=== PATIENT | female | born 1960 | race Caucasian/White ===

== ENCOUNTER 2020-01-09 16:21 | Outpatient (CLI) | payer OTHER, SELFPAY ==
--- NOTE | ~2020-01-09 | MM_ITS ---
EXAMINATION: MM screening tori BI w ellen HISTORY: Screening mammogram TECHNIQUE: Craniocaudal and mediolateral oblique 3-D tomosynthesis images were obtained and synthetic 2-D images were generated. CAD analysis was submitted and interpreted. COMPARISON: 11/13/2018, 04/21/2017 bilateral digital screening mammogram examinations BREAST PARENCHYMAL COMPOSITION: The breasts are almost entirely fatty. FINDINGS: There is no evidence of suspicious mass, calcification, or architectural distortion to sugg est malignancy in either breast. There has been no suspicious interval change. IMPRESSION: 1. No mammographic evidence of malignancy. 2. Recommend routine screening mammography in one year. BI-RADS Category 1: Negative Reviewed, dictated and finalized at location A.
== END 2020-01-09 16:22 | disposition home or self-care (01) ==
LOC: ANHIMG 16:24
PROVIDERS: PCP Otolaryngology; Visit Provider Obstetrics & Gynecology
DX: Z12.31 Encounter for screening mammogram for malignant neoplasm of breast (principal)
CPT/HCPCS: 77063; 77067

== ENCOUNTER 2022-04-22 14:24 | Outpatient (CLI) | payer OTHER, SELFPAY ==
--- NOTE | ~2022-04-22 | MM_ITS ---
EXAMINATION: MM screening tori BI w ellen HISTORY: Screening mammogram TECHNIQUE: Craniocaudal and mediolateral oblique 3-D tomosynthesis images were obtained and synthetic 2-D images were generated. CAD analysis was submitted and interpreted. COMPARISON: 01/09/2020, 11/13/2018, 04/21/2017 bilateral screening mammogram examinations BREAST PARENCHYMAL COMPOSITION: The breasts are almost entirely fatty. FINDINGS: There is no evidence of suspicious mass, calcification, or architectural distortion to sugg est malignancy in either breast. There has been no suspicious interval change. IMPRESSION: 1. No mammographic evidence of malignancy. 2. Recommend routine screening mammography in one year. BI-RADS Category 1: Negative Reviewed, dictated and finalized at location A. FACULTY
== END 2022-04-22 14:25 | disposition home or self-care (01) ==
LOC: ANHIMG 14:27
PROVIDERS: PCP Physician Assistant; Visit Provider Physician Assistant
DX: Z12.31 Encounter for screening mammogram for malignant neoplasm of breast (principal)
CPT/HCPCS: 77063; 77067

== ENCOUNTER 2022-07-06 16:33 | Outpatient (CLI) | payer OTHER, SELFPAY ==
--- NOTE | ~2022-07-06 | CT_ITS ---
EXAMINATION: CTA chest PE protocol DATE: 07/06/2022 17:34 INDICATION: ABNORMAL COAGULATION PROFILE TECHNIQUE: Computed tomography angiography (CTA) of the chest was performed with 100 mL Omnipaque-350 intravenous contrast timed to evaluate the pulmonary arteries. Coronal maximum intensity projection 3D-reconstructions were created by the technologist. The dose-length product (DLP) was 526.48 mGy-cm. Automated exposure control and iterative reconstruction technique were employed. COMPARISON: None. FINDINGS: Lung parenchyma and airways: Clear. Pleura: Unremarkable. Thoracic inlet, axillae and chest wall: Unremarkable. Thoracic aorta: Mild arch calcification. Mediastinum: Calcified right hilar and mediastinal lymph nodes. Heart and pericardium: Normal. Coronary artery calcifications: Mild. Upper abdomen: No significant finding. Bones: No acute osseous finding. Pulmonary arteries: Study quality: Adequate. No pulmonary emboli detected. IMPRESSION: No CT evidence of acute pulmonary embolus. Reviewed, dictated and finalized at location K.
--- NOTE | ~2022-07-06 | US_ITS ---
EXAMINATION: US venous doppler [facility] DATE: 07/06/2022 18:52 INDICATION: ABNORMAL COAGULATION PROFILE . TECHNIQUE: Grayscale images without and with compression and Doppler images of the bilateral lower ex tremity veins were obtained. COMPARISON: None FINDINGS: The right common femoral vein, profunda (deep) femoral vein, femoral vein, popliteal vein, peroneal v ein, posterior tibial veins, gastrocnemius vein, and greater saphenous vein are patent. The left common femoral vein, profunda femoral vein, femoral vein, popliteal vein, peroneal vein, pos terior tibial veins, gastrocnemius vein, and greater saphenous vein are patent. IMPRESSION: 1. Patent bilateral lower extremity veins. No evidence of deep venous thrombosis. Reviewed, dictated and finalized at location K. IMPRESSION: 1. Patent bilateral lower extremity veins. No evidence of deep venous thrombos is.
[2022-07-06 17:26] LABS: Estimated Glomerular Filt Rate > 60
== END 2022-07-06 16:34 | disposition home or self-care (01) ==
PROVIDERS: PCP Internal Medicine Gastroenterology; Visit Provider Emergency Medicine
DX: R79.1 Abnormal coagulation profile (principal)
CPT/HCPCS: 71275; 93970; Q9967

== ENCOUNTER 2022-08-24 09:55 | Outpatient (CLI) | payer OTHER, SELFPAY ==
--- NOTE | 2022-08-24 11:00 | NEURO_ITS ---
Impression: # Complains of numbness of hands. # Bilateral Carpal Tunnel Syndrome, right more than left. # No ulnar neuropathy. # Normal needle/EMG exam. Nerve Conduction Studies Anti Sensory Summary Table Stim Site NR Peak (ms) P-T Amp (?V) Site1 Site2 Delta-P (ms) Dist (cm) Siva (m/s) Left Median Anti Sensory (2-3nd Digit) Wrist 3.4 44.1 Wrist 2-3nd Digit 3.4 14.0 41 Wrist 3.5 53.1 Wrist 2-3nd Digit 3.4 14.0 41 Right Median Anti Sensory (2-3nd Digit) Wrist 4.8 20.1 Wrist 2-3nd Digit 4.8 14.0 29 Wrist 4.1 39.2 Wrist 2-3nd Digit 4.8 14.0 29 Left Radial Anti Sensory (Base 1st Digit) Wrist 1.6 22.7 Wrist Base 1st Digit 1.6 0.0 Right Radial Anti Sensory (Base 1st Digit) Wrist 2.1 15.8 Wrist Base 1st Digit 2.1 0.0 Left Ulnar Anti Sensory (5th Digit) Wrist 2.3 26.6 Wrist 5th Digit 2.3 14.0 61 Right Ulnar Anti Sensory (5th Digit) Wrist 3.0 12.7 Wrist 5th Digit 3.0 14.0 47 Motor Summary Table Stim Site NR Onset (ms) O-P Amp (mV) Site1 Site2 Delta-0 (ms) Dist (cm) Siva (m/s) Left Median Motor (Abd Poll Brev) Wrist 3.5 4.3 Elbow Wrist 4.4 27.0 61 Elbow 7.9 3.9 Right Median Motor (Abd Poll Brev) Wrist 4.5 1.9 Elbow Wrist 4.3 25.0 58 Elbow 8.8 1.9 Left Ulnar Motor (Abd Dig Minimi) Wrist 2.4 4.9 A Elbow Wrist 4.5 27.0 60 A Elbow 6.9 4.3 Right Ulnar Motor (Abd Dig Minimi) Wrist 3.0 4.0 A Elbow Wrist 4.5 27.0 60 A Elbow 7.5 4.2 F Wave Studies NR F-Lat (ms) L-R F-Lat (ms) Left Median (Mrkrs) (Abd Poll Brev) 27.72 0.00 Right Median (Mrkrs) (Abd Poll Brev) 27.72 0.00 Left Ulnar (Mrkrs) (Abd Dig Min) 26.43 1.46 Right Ulnar (Mrkrs) (Abd Dig Min) 27.89 1.46 EMG Side Muscle Nerve Root Ins Act Fibs Amp Dur Recrt Comment Right 1stDorInt Ulnar C8-T1 Nml Nml Nml Nml Nml Right Ext Indicis Radial (Post Int) C7-8 Nml Nml Nml Nml Nml Right Ext Digitorum Radial (Post Int) C7-8 Nml Nml Nml Nml Nml Right BrachioRad Radial C5-6 Nml Nml Nml Nml Nml Right PronatorTeres Median C6-7 Nml Nml Nml Nml Nml Right Abd Poll Brev Median C8-T1 Nml Nml Nml Nml Nml Left 1stDorInt Ulnar C8-T1 Nml Nml Nml Nml Nml Left Ext Indicis Radial (Post Int) C7-8 Nml Nml Nml Nml Nml Left Ext Digitorum Radial (Post Int) C7-8 Nml Nml Nml Nml Nml Left BrachioRad Radial C5-6 Nml Nml Nml Nml Nml Left PronatorTeres Median C6-7 Nml Nml Nml Nml Nml Left Abd Poll Brev Median C8-T1 Nml Nml Nml Nml Nml MTDD
== END 2022-08-24 09:56 | disposition home or self-care (01) ==
LOC: ANHNEURO 09:58
PROVIDERS: PCP Internal Medicine Gastroenterology; Visit Provider Orthopaedic Surgery Hand Surgery
DX: R20.2 Paresthesia of skin (principal); G56.03 Carpal tunnel syndrome, bilateral upper limbs
CPT/HCPCS: 95886; 95911

== ENCOUNTER 2024-10-09 14:42 | Outpatient (CLI) | payer MEDICARE, MEDICAID, SELFPAY ==
--- NOTE | ~2024-10-09 | MM_ITS ---
EXAMINATION: MM screening tori BI w ellen HISTORY: Screening TECHNIQUE: Craniocaudal and mediolateral oblique 3-D tomosynthesis images were obtained and synthetic 2-D images were generated. CAD analysis was submitted and interpreted. COMPARISON: Comparison to multiple prior studies sequentially, with oldest reviewed study dated 03/25. BREAST PARENCHYMAL COMPOSITION: Not dense: There are scattered areas of fibroglandular density. FINDINGS: There is no evidence of suspicious mass, calcification, or architectural distortion to sugg est malignancy in either breast. There has been no suspicious interval change. IMPRESSION: 1. No mammographic evidence of malignancy. 2. Recommend routine screening mammography in one year. BI-RADS Category 1: Negative Reviewed, dictated and finalized at location A.
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
--- OUTSIDE RECORDS SUMMARY | 2024-10-09 16:39 | XMS_ITS | Continuity of Care Document ---
Author Organization [facility] Address [address] [place] [address] Phone Care Team Providers Care Retirement Village Manager Name Role Phone Monsalve OD, Shady Unavailable Unavailable Advance Directives Directive Yes / No Effective Date File Name No Information Encounters Encounter Description Practice Location Reason(s) For Visit Diagnoses Date Provider Providers Copied on Encounter [facility], [address], [place], [place], [id number], [place] tel:[phone] [facility] [place] No Information 2-200 5 Monsalve OD Shady. [address] , [address], [place], [address], [place]. tel:[phone] Family History Family Member Type Diagnosis Age At Onset No Information Payers Payer name Insurance type Covered republican ID Authoriza tion(s) No Information Social History Type Description Quantity Date Captured Comments Sex Female Smoking Status No Information Chief Complaint And Reason For Visit No Information Reason For Referral Reason For Referral No Information History Of Present Illness Encounter Date Complaint History Of Prese nt Illness No Information Functional Status Date Functional Assessmen t No Information Instructions Date Instruction Additional Infor mation No Information Assessments Type Assessment Date No Information Patient Care Teams Name Effective Dates (start - stop) Status Members No Information
--- OUTSIDE RECORDS SUMMARY | 2024-10-09 16:39 | XMS_ITS | CONTINUITY OF CARE DOCUMENT ---
Author Name mariah lemus Address Unknown Organization [facility] Address [address] [place] [address] Phone [phone] Care Team Providers Care Chief Station Engineer Name Role Phone Marcos Noriega MD Unavailable KARYN RINALDI MD Unavailable [phone] INSURANCE PROVIDERS Payer name Policy type / Coverage type Keshawn red republican ID [id number] MEDICAID (2) Medicaid [id number]
--- OUTSIDE RECORDS SUMMARY | 2024-10-09 16:40 | XMS_ITS | Referral Summary ---
Author Organization [facility] Medical Office Building B Address [address] [place] [address] Care Team Providers Care Director E Learning Name Role Phone Nishant Wright MD Primary Care Provider Reginaldo Daley MD Unavailable [phone] Delio Freire OT Unavailable Unavailable Kathleen Olivarez Unavailable [phone] Encounters Date Type Department Care Team Description 09/23/2024 Telephone [facility] Medical [facility] Orthopedics and Sports Medicine [address] [place] [address] [address] [phone] Jose Juan Reynolds MD 09/17/2024 Telephone [facility] Orthopedics and Sports Medicine [address] [place] [address] [address] [phone] Kathleen Olivarez PA 09/17/2024 1:00 PM CDT Telemedicine [facility] Medical [facility] Orthopedics and Sports Medicine [address] [place] [address] [address] [place] [phone] Kathleen Olivarez PA S/P total knee arthroplasty, left (Primary Dx); Orthopedic aftercare 09/12/2024 [facility] Post Discharge Follow up phone call [facility] [address] [place] [address] Romelia Iniguez 09/12/2024 [facility] Post Discharge Follow up phone call [facility] [address] [place] [address] Romelia Iniguez Alicia 09/03/2024 3:52 PM CDT - 09/04/2024 12:48 PM CDT Hospital Encounter [facility] [address] [place] [address] Jose Juan Reynolds MD S/P TKR (total knee replacement), right (Primary Dx); Primary osteoarthritis of left knee Discharge Disposition: Discharge to home or self care 09/03/2024 2:05 PM CDT - 09/03/2024 11:59 PM CDT Hospital Encounter [facility] [address] [place] [address] Discharge Disposition: Discharge to home or self care 09/03/2024 11:25 AM CDT - 09/03/2024 1:55 PM CDT Surgery [facility] Operating Room [address] [place] [address] Jose Juan Reynolds MD Left total knee arthroplasty, robotic 09/03/2024 11:16 AM CDT Anesthesia Event [facility] Operating [facility] [address] [place] [address] Christel Lr MD Alexander, Jeffrey Michael, DO 08/16/2024 Orders Only [facility] Medical Group Orthopedics and Sports Medicine [address] [place] [address] [address] [place] [address] Jose Juan Reynolds MD Primary osteoarthritis of left knee (Primary Dx) 08/05/2024 10:10 AM CDT Lab [address] [address] Pre-op testing 08/05/2024 10:08 AM CDT - 08/05/2024 11:59 PM CDT Hospital Encounter [facility] [address] [place] [address] Pre-op testing Discharge Disposition: Discharge to home or self care 08/05/2024 10:07 AM CDT - 08/05/2024 11:59 PM CDT Hospital Encounter [facility] Cardiology [address] [place] [address] Pre-op testing Discharge Disposition: Discharge to home or self care 08/05/2024 Orders Only [facility] Medical Group Orthopedics and Sports Medicine [address] [place] [address] Jose Juan Reynolds MD Pre-op testing (Primary Dx) from Last 3 Months Allergies Active Allergy Reactions Criticality Noted Date Comments Sulfa (Sulfonamide Antibiotics) Rash Medium 03/24 Medications traZODone (DESYREL) 50 mg tablet Take 2 tablets (100 mg total) by mouth nightly Active pramipexole (MIRAPEX) 0.25 mg tablet Take 2 tablets (0.5 mg total) by mouth daily Active gabapentin (NEURONTIN) 600 mg tablet Take 1 tablet (600 mg total) by mouth 3 (three) times a day [address] (CYMBALTA) 60 mg capsule Take by mouth daily 3 Active baclofen (LIORESAL) 10 mg tablet TAKE 1 TABLET 3 TIMES A DAY BY ORAL ROUTE. Active lidocaine (LIDODERM) 5 % APPLY 1 PATCH BY TOPICAL ROUTE ONCE DAILY (MAY WEAR UP TO 12HOURS.) 4 Active ferrous sulfate 325 mg (65 mg of elemental iron) tabletIndicati ons:Iron Deficiency Anemia Take 1 tablet (325 mg total) by mouth 2 (two) times a day Active rosuvastatin (CRESTOR) 10 mg tablet Take 1 tablet (10 mg total) by mouth daily 4 Active senna-docusate (PERICOLACE) 8.6-50 mg 1-2 times daily as needed for constipation 60 tablet 1 5 Active ondansetron (ZOFRAN) 4 mg tablet Every 4-6 hours as needed 30 tablet 1 5 Active ascorbic acid (VITAMIN C) 500 mg tablet,chewabl e Take 1 tablet/chew tab (500 mg total) by mouth 2 (two) times a day 60 tablet/chew tab 5 Active cholecalcifero l (Vitamin D3) 2000 unit tablet Take 1 tablet (2,000 Units total) by mouth daily 30 tablet 5 Active aspirin 81 mg chewable tablet Take 1 tablet (81 mg total) by mouth 2 (two) times a day 60 tablet 5 Active celecoxib (CeleBREX) 200 mg capsule Take 1 capsule (200 mg total) by mouth 2 (two) times a day for 14 days 28 capsule 5 Active oxyCODONE-acet aminophen (PERCOCET) 5-325 mg per tabletIndicati ons:Pain Take 1-2 tablets by mouth every 4 (four) hours as needed for pain 63 tablet 5 Active oxyCODONE-acet aminophen (PERCOCET) 5-325 mg per tabletIndicati ons:Pain Take 1-2 tablets by mouth every 4 (four) hours as needed for pain 63 tablet 5 025 Discontin ued(Reord er) Active Problems Problem Noted Date Diagnosed Date Primary osteoarthritis of left knee 08/08/2024 S/P TKR (total knee replacement), right 12/26/19 24 Primary osteoarthritis of right knee 12/08/2023 Primary osteoarthritis of right hip 05/22/2023 Adhesive capsulitis of shoulder 01/25/2023 Obstructive sleep apnea syndrome 01/25/2023 Numbness and tingling sensation of skin 07/21/19 23 Pain of both shoulder joints 07/20/2022 Pain of cervical spine 07/20/2022 Congenital pes planus 07/29/2019 Fibromyalgia 07/29/2019 Foot callus 07/29/2019 Hypercholesterolemia 07/29/2019 Obesity 07/29/2019 Arthritis 07/29/2019 Osteoporosis 07/29/2019 Pain in right foot 07/29/2019 Verruca plantaris 07/29/2019 Cervical radiculopathy 04/06/2017 Social History Tobacco Use Types Packs/Day Years Used Date Smoking Tobacco: Former Cigarettes Q uit: 2012 Smokeless Tobacco: Never Tobacco Cessation:Counseling Given: Not Answered AUDIT-C Answer Date Recorded Q1: How often do you have a drink containing alc ohol? 2-4 times a month 09/03/2024 Q2: How many drinks containi ng alcohol do you have on a typical day when you are drinking? 1 or 2 09/03/2024 Q3: How often do you have si x or more drinks on one occasion? Never 09/03/2024 Personal Safety Answer Date Recorded Have you ever been in or are you currently in a harmful physical or emotional relationship or is someone making you feel afraid or unsafe? 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 Gender Identity Not on file Sexual Orientation Not on file Last Filed Vital Signs Vital Sign Reading Time Taken Comments Blood Pressure 119/70 09/04/2024 11:30 AM CDT Pulse 78 09/04/2024 11:30 AM CDT Temperature 36.1 C (97 F) 09/04/2024 11:30 AM CDT Respiratory Rate 18 09/04/2024 11:30 AM CDT Oxygen Saturation 100% 09/04/2024 11:30 AM CDT Inhaled Oxygen Concentration - - Weight 82.1 kg (181 lb) 09/04/2024 3:10 AM CDT Height 149.9 cm (4' 11.02) 09/04/2024 3:10 AM C DT Body Mass Index 36.54 09/04/2024 3:10 AM CDT Plan of Treatment Not on file Medical Devices Implanted Type Area Pit Recorder Device Identifier Shelf Expiration Date Model / Serial / Lot [employer] [place] 52mm 36mm Hip Neutral Liner Acetabular Altrx Sterile Latex Free [id number] - [id number] Implanted:Qty: 1 on 09/19/2023 by Reginaldo Daley MD at [facility] Right: Hip [employer] 06/21/2028 [id number] / / [id number] [employer] [place] 52mm Sector Hip Shell Acetabular Gription Sterile Latex Free [id number] - [id number] Implanted:Qty: 1 on 09/19/2023 by Reginaldo Daley MD at [facility] Right: Hip [employer] 06/21/2033 [id number] / / [id number] [employer] [place] 6.5mm 25mm Acetabular Cancellous Screw Bone Sterile 1217-25-500 - [id number] Implanted:Qty: 1 on 09/19/2023 by Reginaldo Daley MD at [facility] Right: Hip [employer] 03/23/2033 1217-25-500 / / [id number] [employer] Actis 105mm Collar Hip 5 Standard Offset Stem Femoral 1010-11-050 - [id number] Implanted:Qty: 1 on 09/19/2023 by Reginaldo Daley MD at [facility] Right: Hip [employer] 07/22/2032 1010-11-050 / / [id number] [employer] Articul/Nathan 36mm Cementless Hip +1.5mm 04/06 Taper Head Femoral Latex Free [id number] - [id number] Implanted:Qty: 1 on 09/19/2023 by Reginaldo Daley MD at [facility] Right: Hip [employer] 07/22/2028 [id number] / / [id number] [employer] Attune Cruciate Retain Cementless Knee Right 5 Component Femoral [id number] - [id number] Implanted:Qty: 1 on 12/26/2023 by Jose Juan Reynolds MD at [facility] Right: Knee [employer] [id number] 10/21/2033 [id number] / / [id number] [employer] Attune Fb Tib Base Sz 3 Por [id number] - [id number] Implanted:Qty: 1 on 12/26/2023 by Jose Juan Reynolds MD at [facility] Right: Knee [employer] [id number] 11/21/2033 [id number] / / [id number] [employer] Insert Tibial Knee Fixed Rm Posterior Stabilized Attune 5mm Size 5 Polyethylene [id number] - [id number] Implanted:Qty: 1 on 12/26/2023 by Jose Juan Reynolds MD at [facility] Right: Knee [employer] [id number] 12/22/2030 [id number] / / [id number] [employer] Attune Fb Tib Base Sz 4 Por [id number] - [id number] Implanted:Qty: 1 on 09/03/2024 by Jose Juan Reynolds MD at [facility] Left: Knee [employer] [id number] 07/22/2032 [id number] / / [id number] [employer] Insert Tibial Knee Fixed Lm Posterior Stabilized Attune 6mm Size 5 Polyethylene [id number] - [id number] Implanted:Qty: 1 on 09/03/2024 by Jose Juan Reynolds MD at [facility] Left: Knee [employer] [id number] 06/21/2032 [id number] / / [id number] [employer] Attune Cruciate Retain Cementless Knee Left 5 Narrow Component [id number] - [id number] Implanted:Qty: 1 on 09/03/2024 by Jose Juan Reynolds MD at [facility] Left: Knee [employer] 06/21/2034 [id number] / / Procedures Procedure Name Priority Date/Time Associated Diagnosis Comments XR KNEE LEFT 1 OR 2 VIEWS IP Routine 09/03/2024 2:16 PM CDT SURGICAL PATHOLOGY Routine 09/03/2024 2: 13 PM CDT Primary osteoarthritis of left knee ANESTHESIA SPINAL BLOCK Routine 09/03/2024 11:41 AM CDT ARTHROPLASTY TOTAL KNEE 09/03/2024 10:51 AM CDT Primary osteoarthritis of left knee Special Needs [Depuy Attune], Velys, NMES, CPM, cooling unit, 1 liter beta rinse and aquamantys (overnight)< PROTIME-INR STAT 09/03/2024 9:37 AM CDT APTT STAT 09/03/2024 9:37 AM CDT XR CHEST PA LATERAL 2 VIEWS Schedule Routine, Read Routine (OP Routine) 08/05/2024 10:44 AM CDT Pre-op testing ECG 12-LEAD Routine 08/05/2024 10:38 AM CDT Pre-op testing EGFR Routine 08/05/2024 10:23 AM CDT Pre-op testing DIFFERENTIAL AUTO Routine 08/05/2024 10:23 AM CDT Pre-op testing COMPREHENSIVE METABOLIC PANEL Routine 08/05/2024 10:23 AM CDT Pre-op testing CBC WITH AUTO DIFFERENTIAL Routine 08/05/2024 10:23 AM CDT Pre-op testing URINALYSIS AND REFLEX TO MICROSCOPIC AND CULTURE Routine 08/05/2024 10:23 AM CDT Pre-op testing from Last 3 Months Results * XR Knee Left 1 or 2 View (09/03/2024 2:16 PM CDT) Anatomical Region Laterality Modality Lower Extremities, Knee Left Computed Radiography 09/04/2024 2:50 PM CDT Narrative 09/04/2024 2:51 PM CDT EXAM DESCRIPTION: XR KNEE LEFT 1 OR 2 VIEWS REASON FOR STUDY: Left knee osteoarthritis. Post op Left knee FINDINGS: Two views submitted with comparison 05/13/2024. There has been interval 2 component left knee arthroplasty in near anatomic alignment. No acute fracture or evidence of loosening. Soft tissue swelling and foci of gas are present. IMPRESSION: Interval 2 component left knee arthroplasty in near anatomic alignment. THIS IS AN ELECTRONICALLY VERIFIED FINAL REPORT 09/04/2024 2:51 PM - Electronically signed by Jalil Lerner M.D. MF: SILVIA Report ID: [id number] Reading Location: [id number] Procedure Note Jalil Lerner MD - 09/04/2024 EXAM DESCRIPTION: XR KNEE LEFT 1 OR 2 VIEWS REASON FOR STUDY: Left knee osteoarthritis. Post op Left knee FINDINGS: Two views submitted with comparison 05/13/2024. There has been interval 2 component left knee arthroplasty in nearanatomic alignment. No acute fracture or evidence of loosening. Soft tissueswelling and foci of gas are present. IMPRESSION: Interval 2 component left knee arthroplasty in near anatomic alignment. THIS IS AN ELECTRONICALLY VERIFIED FINAL REPORT 09/04/2024 2:51 PM - Electronically signed by Jalil Lerner M.D. MF: SILVIA Report ID: [id number] Reading Location: [id number] Constantino Angelique TALAMANTES IMG XR PROCEDURES Final Res ult * Surgical pathology (09/03/2024 2:13 PM CDT) Tissue (Bone Fragment(s),) 09/03/2024 12:23 PM CDT Narrative [facility] - 09/05/2024 10:42 AM CDT EPIC results best viewed via link to PDF [facility] Department of Pathology [address] [place] [id number] Note to Patients: This report may contain a detailed description of human tissue sent by a health care provider to the laboratory for pathologic evaluation. The content of this report is essential for diagnosis and may provide important critical findings. This information may be unfamiliar to patients to review without a medical professional present. It is advised that the patient review this report in the presence of a health care provider who can answer questions and explain the details. Final Report Patient Name: VERENICE MONTGOMERY Address: [address] [place] [address] Gender: F : 1960 (Age: 64) Service: Surgery Location: [facility] Hospital #: [id number] Patient Type: [facility] OP in bed Taken: 09/03/2024 Received: 09/03/2024 Accessioned: 09/03/2024 Reported: 09/05/2024 Physician(s):Dr. Jose Juan Reynolds M.D. Diagnosis: Bone and soft tissue, robotic left total knee arthroplasty: - Histologic changes consistent with degenerative joint disease. Sae Armas MD Report Electronically Reviewed and Signed Out By Sae Armas MD 09/05/2024 10:42:47 Specimen(s) Received: A: Left knee bone and tissue Microscopic Description: A decalcified section shows erosion and destruction of the articular cartilage. The marrow space appears fatty without significant hematopoietic marrow elements. Also seen are benign-appearing fragments of soft tissue, focally lined by bland synovium. There is no evidence of malignancy. The histologic changes are consistent with the clinical impression of degenerative joint disease. Clinical History: Osteoarthritis of left knee. Left total knee arthroplasty, robotic. Gross Description: The container is labeled VERENICE MONTGOMERY and left knee. It is a 7 x 6 x 4 cm in aggregate of irregularly-shaped fragments of bone and an approximate 10 cc aggregate of soft tissue consisting of adipose tissue, portions of menisci and some synovium. Recognizable pieces of bone include the tibial plateau and portions of femoral condyles. Some of the bone fragments are covered by articular cartilage showing varying degrees of degenerative changes that include eburnation, pitting and roughened granularity. Decalcified and represented in two cassettes. Brien Fagan R.N., P.A./Libby Hall M.D. REPORT IMAGES AND SCANNED DOCUMENTS, IF INCLUDED, ONLY VIEWABLE IN PDF VERSION OF REPORT The performance characteristics of some immunohistochemical stains, fluorescence in-situ hybridization tests and immunophenotyping by flow cytometry cited in this report (if any) were determined by the Surgical Pathology Department at [facility] as part of an ongoing quality checker program and in compliance with federally mandated regulations drawn from the Clinical Laboratory Improvement Act of 1988 (CLIA '88). Some of these tests rely on the use of analyte specific reagents and are subject to specific labeling requirements by the US Food and Drug Administration. Such diagnostic tests may only be performed in a facility that is certified by the Department of Health and Human Services as a high complexity laboratory under CLIA '88. The FDA has determined that such clearance or approval is not necessary. This test is used for clinical purposes. It should not be regarded as investigational or for research. Nevertheless, federal rules concerning the medical use of analyte specific reagents require that the following disclaimer be attached to the report: This test was developed and its performance characteristics determined by the Surgical Pathology Department [facility]. It has not been cleared or approved by the U. S. Food and Drug Administration. Note for decalcified specimens: This assay has not been validated on decalcified tissues. Results should be interpreted with caution given the possibility of false negativity on decalcified specimens us Jose Juan Reynolds MD LAB PATHOLOGY ORDERABLES [facility] al Result [facility] [address] [place] [address] * Spinal Block (09/03/2024 11:41 AM CDT) Belinda Stewart, CARTON FILLING MACHINE OPERATOR - 09/03/2024 11:41 AM CDT Belinda Hunt CRNA 09/03/2024 11:42 AM Spinal Block Patient location: OR End time: 09/03/2024 11:22 AM Reason for block: primary anesthetic Staff: Placed by: JOSELITO:Belinda Hunt CRNA Procedure prep: Preprocedure checklist: patient identified, procedure contraindications assessed, site marked, procedure consent, surgical consent, IV checked, risks, benefits and alternatives discussed, monitors and equipment checked and timeout performed Patient position: sitting Procedure performed while patient: sedate with meaningful contact Monitoring: oximetry and blood pressure Prep solution: chlorhexadine/alcohol PPE: provider hat/mask, sterile gloves and sterile drape Skin infiltrated with lidocaine 1%: yes Spinal: Approach: midline Introducer used: yes Location: L4-5 Spinal injection: CSF demonstrated, no aspiration of heme and no paresthesias noted Number of attempts: 1 Spinal Needle: Needle type: Bryan Needle gauge: 25 G Needle length: 9 cm Assessment: Events: patient tolerated procedure well with no complications Christel Lr MD ANESTHESIA ORDERABLES Fi nal Result * aPTT (09/03/2024 9:37 AM CDT) aPTT 34 28 - 38 sec [facility] Comment: Interpretive Data Heparin therapeutic range: 66.0 - 100.0 seconds. Range based on correlation with therapeutic heparin activity range of 0.3 - 0.7 Units/mL. Current interpretive data was last revised on 2023. Blood 09/03/2024 9:37 AM CDT 09/03/2024 9:39 AM CDT Jose Juan Reynolds MD LAB BLOOD ORDERABLES Final R esult [facility] 1 [facility] Department of Laboratories [place], [place] [id number] * (ABNORMAL) Protime-INR (09/03/2024 9:37 AM CDT) PT 9.5(L) 9.7 - 13.0 sec [facility] INR 0.88(L) 0.90 - 1.20 [facility] Comment: Interpretive data Oral anticoagulant therapeutic ranges: Venous thromboembolism prophylaxis or treatment: 2.0-3.0 CARDIOLOGY Standard range: 2.0-3.0 High-intensity range: 2.5-3.5 Refer to indication-specific guidelines for appropriate target ranges for prosthetic heart valve replacement. Current interpretive data was last revised on 2019. Blood 09/03/2024 9:37 AM CDT 09/03/2024 9:39 AM CDT us Jose Juan Reynolds MD LAB BLOOD ORDERABLES Final R esult [facility] 1 [facility] Department [place] [address] * XR Chest Pa Lateral 2 Views (08/05/2024 10:44 AM CDT) Anatomical Region Laterality Modality Body, Chest N/A Computed Radiogr aphy 08/06/2024 1:25 PM CDT Narrative 08/06/2024 1:27 PM CDT EXAM DESCRIPTION: XR CHEST PA LATERAL 2 VIEWS REASON FOR STUDY: Pre op testing Pre-op for Left knee replacement on 09/03/24 No current chest complaints Former smoker TECHNIQUE: 2 radiographic view(s) of the chest. COMPARISON: 12/01/2023 FINDINGS: LUNGS: No focal opacity, pleural effusion, or pneumothorax. HEART/MEDIASTINUM: Cardiac silhouette normal in size. Mediastinal and hilar contours appear normal. LINES/TUBES: None. BONES: No acute osseous abnormality. Mild sclerosis of the left humeral head. These findings may be seen in the setting of avascular necrosis. IMPRESSION: Clear lungs. Mild sclerosis of the left humeral head. These findings may be seen in the setting of avascular necrosis. Consider follow-up dedicated left shoulder radiographs for further evaluation. THIS IS AN ELECTRONICALLY VERIFIED FINAL REPORT 08/06/2024 1:27 PM - Electronically signed by Jermain VillegasD. BB: LETICIA Report ID: [id number] Reading Location: [id number] Procedure Note Jermain Worthington MD PhD - 08/06/2024 EXAM DESCRIPTION: XR CHEST PA LATERAL 2 VIEWS REASON FOR STUDY: Pre op testing Pre-op for Left knee replacement on 09/03/24 No current chest complaints Former smoker TECHNIQUE: 2 radiographic view(s) of the chest. COMPARISON: 12/01/2023 FINDINGS: LUNGS: No focal opacity, pleural effusion, or pneumothorax. HEART/MEDIASTINUM: Cardiac silhouette normal in size. Mediastinal andhilar contours appear normal. LINES/TUBES: None. BONES: No acute osseous abnormality. Mild sclerosis of the lefthumeral head. These findings may be seen in the setting of avascular necrosis. IMPRESSION: Clear lungs. Mild sclerosis of the left humeral head. These findings may be seen in the setting of avascular necrosis. Consider follow-up dedicated left shoulder radiographs for further evaluation. THIS IS AN ELECTRONICALLY VERIFIED FINAL REPORT 08/06/2024 1:27 PM - Electronically signed by Jermain Worthington M.D. BB: LETICIA Report ID: [id number] Reading Location: [id number] us Jose Juan Reynolds MD IMG XR PROCEDURES Final Resu lt * ECG 12 lead (08/05/2024 10:38 AM CDT) 08/05/2024 10:4 2 AM CDT Narrative [facility] - 08/05/2024 12:18 PM CDT Vent Rate: 80 bpm RR Interval: 746 msec WV Interval: 169 msec QRS Duration: 94 msec QT Interval: 347 msec QTC Interval: 383 msec P-R-T [place]: 46 - -24 - 45 degrees IMPRESSION: SINUS RHYTHM POSSIBLE ANTERIOR MYOCARDIAL INFARCTION , PROBABLY OLD [30 ms Q WAVE IN V3/V4, OR R < 0.2 mV IN V4] BORDERLINE ECG NO CHANGE FROM PREVIOUS TRACING NOTED Electronically Signed By: Dony Brewer MD Jose Juan Reynolds MD ECG ORDERABLES Final Result [facility] * eGFR (08/05/2024 10:23 AM CDT) eGFR >90 >=60 mL/min/1. 73 m2 Comment: Interpretive Data Reference Interval Normal >/= 90 mL/min/1.73m2 Mildly decreased* 60 - 89 mL/min/1.73m2 Mildly to moderately decreased 45 - 59 mL/min/1.73m2 Moderately to severely decreased 30 - 44 mL/min/1.73m2 Severely decreased 15 - 29 mL/min/1.73m2 Kidney Failure < 15 mL/min/1.73m2 *Relative to young adult level Estimated glomerular filtration rate is determined by the 2020 CKD-EPI equation recommended by the National Kidney Foundation (A Unifying Approach to GFR Estimation: Recommendations of the NKF-ASK Task Force on Reassessing the Inclusion of Race in Diagnosing Kidney Disease, JASN 2020). The CKD-EPI equation should not be used for patients with unstable renal function and has not been validated in children and those over 70. Current interpretive data was last reviewed 2021. Blood 08/05/2024 10:2 3 AM CDT 08/05/2024 10:35 AM CDT Jose Juan Reynolds MD LAB BLOOD ORDERABLES Final R esult [facility] 1 [facility] Department [place] [address] * Differential, auto (08/05/2024 10:23 AM CDT) Neutrophil abs 4.32 1.50 - 6.50 K/cumm Imm gran abs 0.02 0.00 - 0.10 K/cumm [facility] Lymphocyte abs 2.34 0.80 - 3.30 K/cumm [facility] Monocyte abs 0.58 0.20 - 0.80 K/cumm [facility] Eosinophil abs 0.19 0.00 - 0.50 K/cumm [facility] Basophil abs 0.03 0.00 - 0.10 K/cumm [facility] Neutrophil pct 57.7 % [facility] Comment: Interpretive Data Percent cell count reference ranges are not reported, since discordance with absolute values may lead to misinterpretation of CBC data. Current Interpretive Data was last revised on 2017. Imm gran pct 0.3 % [facility] ([place]) Comment: Interpretive Data Percent cell count reference ranges are not reported, since discordance with absolute values may lead to misinterpretation of CBC data. Current Interpretive Data was last revised on 2017. Lymphocyte pct 31.3 % [facility] ([place] Comment: Interpretive Data Percent cell count reference ranges are not reported, since discordance with absolute values may lead to misinterpretation of CBC data. Current Interpretive Data was last revised on 2017. Monocyte pct 7.8 % [facility] ([place]) Comment: Interpretive Data Percent cell count reference ranges are not reported, since discordance with absolute values may lead to misinterpretation of CBC data. Current Interpretive Data was last revised on 2017. Eosinophil pct 2.5 % [facility] ([place] Comment: Interpretive Data Percent cell count reference ranges are not reported, since discordance with absolute values may lead to misinterpretation of CBC data. Current Interpretive Data was last revised on 2017. Basophil pct 0.4 % [facility] ([place]) Comment: Interpretive Data Percent cell count reference ranges are not reported, since discordance with absolute values may lead to misinterpretation of CBC data. Current Interpretive Data was last revised on 2017. Blood 08/05/2024 10:2 3 AM CDT 08/05/2024 10:35 AM CDT us Jose Juan Reynolds MD LAB BLOOD ORDERABLES Final R esult [facility] ([place]) 1 [facility] [place] [address] * Urinalysis reflex to microscopic and culture Urine, clean voided (08/05/2024 10:23 AM CDT) Color, ur Yellow Yellow Clarity, ur Clear Clear [facility]) Specific gravity, ur 1.024 1.003 - 1.030 [facility] pH, urine 6.5 [facility] ([place]) Comment: Interpretive Data U rine pH is affected by diet, medications, systemic acid-base disturbances, and renal tubular function. pH may affect urinary stone formation. For example, urine pH below 6.0 may help reduce the tendency for calcium phosphate stones and pH greater than 6.0 may reduce the tendency for uric acid stone formation. Source: [facility] [place] Current Interpretive Data was last revised on 2017 Protein, ur ql Negative Negative [facility] ([place]) Glucose, ur ql Negative Negative [facility]) Ketones, ur Negative Negative [facility] Bilirubin, ur Negative Negative [facility]) Blood, ur Negative Negative [facility]) Urobilinogen, ur <2.0 <2.0 mg/dL [facility] ([place]) Nitrite, ur Negative Negative [facility] Leukocyte esterase, ur Negative Negative [facility] ([place]) UA reflex comment Reflex conditions for microscopic UA and culture not met. [facility]) Urine, clean voided 08/05/2024 10:23 AM CDT 08/05/2024 10:33 AM CDT us Jose Juan Reynolds MD LAB MICROBIOLOGY - GENERAL O RDERABLES Final Result [facility] ([place] 1 [facility] Department [place] [address] * (ABNORMAL) CBC with auto differential (08/05/2024 10:23 AM CDT) WBC 7.48 3.80 - 9.90 K/cumm Hgb 13.6 11.9 - 15.5 g/dL [facility] Hct 41.3 35.6 - 45.5 % [facility] Plt 271 150 - 400 K/cumm [facility] MPV 10.1 9.1 - 12.3 fL [facility] RBC 4.33 3.90 - 5.20 M/cumm [facility] MCV 95.4 81.3 - 96.4 fL [facility] MCH 31.4 27.1 - 33.3 pg [facility] MCHC 32.9 32.3 - 35.7 g/dL [facility] RDW CV 14.2 11.1 - 14.9 % [facility] RDW SD 50.5(H) 35.7 - 48.1 fL [facility] NRBC abs 0.00 0.00 - 0.01 K/cumm [facility] Blood 08/05/2024 10:2 3 AM CDT 08/05/2024 10:35 AM CDT us Jose Juan Reynolds MD LAB BLOOD ORDERABLES Final R esult [facility] ([place]) 1 [facility] Department [place] [address] * Comprehensive metabolic panel (08/05/2024 10:23 AM CDT) Sodium 141 135 - 145 mmol/L Potassium, pl 4.6 3.3 - 4.9 mmol/L [facility] Chloride 103 97 - 110 mmol/L [facility] CO2 26 22 - 32 mmol/L [facility] Anion gap 12 2 - 15 mmol/L [facility] BUN 19 6 - 25 mg/dL [facility] Creatinine 0.72 0.60 - 1.10 mg/dL [facility] Glucose 103 70 - 199 mg/dL [facility] Comment: Interpretive Data Fasting glucose >/= 126 mg/dl is diagnostic for diabetes. Fasting is defined as no caloric intake for at least 8 hours. Fasting glucose between 100 mg/dl to 125 mg/dl is diagnostic of prediabetes. In a patient with classic symptoms of hyperglycemia or hyperglycemic crisis, a random glucose >/= 200 mg/dl is diagnostic for diabetes. In the absence of unequivocal hyperglycemia, results should be confirmed by repeat testing. The classification and Diagnosis of Diabetes Diabetes Care 2021; 46: S19-S40. Current interpretive data was last revised 2022. Calcium 9.6 8.5 - 10.3 mg/dL [facility] Bilirubin, total 0.3 0.1 - 1.2 mg/dL [facility] ([place]) Protein, pl 7.3 6.5 - 8.5 g/dL [facility]) Albumin 4.3 3.5 - 5.0 g/dL [facility] Alk phos 84 40 - 130 Units/L [facility] ALT 17 7 - 45 Units/L [facility] AST 21 10 - 45 Units/L [facility] Blood 08/05/2024 10:2 3 AM CDT 08/05/2024 10:35 AM CDT us Jose Juan Reynolds MD LAB BLOOD ORDERABLES Final R esult [facility] ([place]) 1 [facility] Department of Laboratories [place], [place] [id number] from Last 3 Months Insurance [employer] MEDICARE GOLD [facility] Advance Directives For more information, please contact: [phone] * Full Code (Latest Code Status on File) Date Activated Date Inactivated Comments 09/03/2024 3:53 PM 09/04/2024 4:48 PM * Full Code Date Activated Date Inactivated Comments 12/26/2023 3:20 PM 12/27/2023 6:09 PM * Full Code Date Activated Date Inactivated Comments 09/19/2023 12:21 PM 09/19/2023 8:24 PM Care Teams Director E Learning Relationship Specialty Start Date End Date Nishant Wright MD [address] [place] [id number] PCP - General Gastroenterology 10/05/22 Reginaldo Daley MD [address] [place] [address] [place] [address] Surgeon Orthopedic Surgery 09/19/23 Delio Freire OT Occupational Therapist Occupational Therapy 08/22/24 Kathleen Olivarez PA [address] [address] [place] [address] Orthopedic Surgery 09/04/24
--- OUTSIDE RECORDS SUMMARY | 2024-10-09 16:40 | XMS_ITS | Data Portability ---
Author Organization [facility] Address [address] [place] [address] Care Team Providers Care Tire Debeader Name Role Phone NISHANT GUARDADO Primary Care Provider SAW CAMP Grounds Caretaker Assessment Encounter Date Assessment Date Assessment LastModified by Organization Details LastModified Time 06/04/2024 06/04/2024 Labs completed 05/07/2024 CK 117, Glucose 91, BUN 17, Creatinine 0.58, eGFR 100, Sodium 143, Potassium 4.4, Chloride 102, Co2 31, Calcium 9.1, Protein 6.2, Albumin 4, Bilirubin 0.2, Alk phos 89, AST 22, ALT 15, Cholesterol 153, Triglycerides 80, LDL 76, HDL 62 LABS: 10/23/23. Glucose 90 BUN 14, creatinine 0.92, EGFR 99, sodium 140, potassium 4.7, chloride 104, carbon dioxide 25, calcium 9.3, protein 6.5, albumin 4.1, globulin 2.4, bilirubin < 0.2, alkaline phosphate 107, AST 18, ALT 11, cholesterol 157, triglycerides 97, HDL 63, LDL 76, CK 102. labs preformed on 09/12/2023, eGFR >90, sodium 139, potassium 3.9, chloride 100, CO2 28, anion gap 11, BUN 9, creatinine 0.72, glucose 86, calcium 9.2, bilirubin 0.3, protein 7.3, alk phos 89, ALT 22, AST 28, WBC 9.3, HGB 14.2, PLT 272, HGB A1C 5.7, Laboratories performed on 05/03/2023 white blood cell count 7800, hemoglobin 14.5, platelet count 325,000, sodium 138, potassium 3.7, chloride 101, bicarb 25, BUN 20, creatinine 0.58, glucose 103, calcium 9.8, bilirubin 0.4, protein 7.6, albumin 4.4, alkaline phosphatase 95, ALT 19, AST 23, GFR 101, ECG on 06/04/2024 shows normal sinus rhythm with a rate of 75 beats per minute, RSR prime pattern, left axis deviation poor R-wave progression, compared to the previous EKG which was last done on 05/31/2023, PVCs are no longer seen, otherwise the EKG is unchanged ASSESSMENT Preoperative cardiac evaluation prior to right knee arthroplasty with abnormal EKG with poor R wave progression left anterior fascicular block cannot rule out old anterior infarct and a Lexiscan Myoview stress test with anterior ischemia with just mild disease on a cardiac CTA done on 07/27/2023, she had a right hip arthroplasty done in August which was uneventful no cardiac contraindication right total knee arthroplasty. Coronary artery disease with mild disease less than 50% with in the LAD a calcium score of 37.3 and a cardiac CTA done on 07/26/2022 Abnormal ecg Myalgias, not improved with holding her statin so likely due to fibromyalgia Pure hypercholesterolemia on rosuvastatin 20 mg daily which he is tolerating but her LDL is not at ideal goal. She still has fibromyalgia pain but no significant change with the rosuvastatin History of fibromyalgia on gabapentin and Cymbalta Plan I recommend she follow a low fat low-cholesterol diet. She has no cardiac contraindication to getting a left total knee arthroplasty as she had a right total knee arthroplasty in December of 2023 which was without at complication. I did ask her to increase the rosuvastatin from 20 mg to 40 mg daily. to attain a goal LDL of under 70 mg/dL. I asked her to stop the rosuvastatin if she has significant muscle pains or any weakness other than her typical fibromyalgia pain. I asked her to continue her aspirin 81 mg daily I asked her to return in 2 months' time and we will obtain a fasting lipid profile, complete metabolic profile and a CPK prior to her follow-up visit. I asked her to return sooner if she has any cardiac issues or problems. CARDIAC TESTING ECHOCARDIOGRAM 12/20/2023, The study showed normal left ventricular size, wall thickness and systolic function. LV ejection fraction, visually 55-60%. Diastolic dysfunction grade 1. Resting segmental wall motion analysis: total wall motion score is 1.00. There are no regional wall motion abnormalities. Normal right ventricular size and systolic function. Agitated saline bubble study is negative for intracardiac shunt. The estimated pulmonary artery systolic pressure is 33 mmHg. Normal estimated pulmonary artery systolic pressure. Trace tricuspid regurgitation. The IVC (inferior vena cava) was <2.1 cm and collapsibility >50%. The RA pressure is estimated to be 3 mmHg. Normal 2D/Doppler-echocardiog raphic study with normal left ventricular function and no significant valvular abnormalities. Lexiscan Myoview stress test 06/16/2023 was moderate-sized area of anterior ischemia accounting for 7% of the myocardium, 3 times daily index increased to 1.37 and an LVEF of 66%. CARDIAC CTA: 07/27/2023 mild calcified atherosclerotic plaque which is most serve within the mild left anterior decending coronary artery and the bifurcation of the 1st diagonal branch above with mild stenosis (less than 50%) calcium score is 37.3 [email or web address] Not available 06/04/2024 13:45:09 08/13/2024 08/13/2024 Labs completed 08/05/2024 CK 87, Cholesterol 164, Triglycerides 161, HDL 69, LDL 68, Glucose 102, BUN 18, Creatinine 0.68, eGFR 97, Sodium 142, Potassium 4.5, Chloride 105, Co2 25, Calcium 9.8, Protein 7, Albumin 4.4, Bilirubin 0.3, Alk phos 89, AST 21, ALT 16 Labs completed 05/07/2024 CK 117, Glucose 91, BUN 17, Creatinine 0.58, eGFR 100, Sodium 143, Potassium 4.4, Chloride 102, Co2 31, Calcium 9.1, Protein 6.2, Albumin 4, Bilirubin 0.2, Alk phos 89, AST 22, ALT 15, Cholesterol 153, Triglycerides 80, LDL 76, HDL 62 LABS: 10/23/23. Glucose 90 BUN 14, creatinine 0.92, EGFR 99, sodium 140, potassium 4.7, chloride 104, carbon dioxide 25, calcium 9.3, protein 6.5, albumin 4.1, globulin 2.4, bilirubin < 0.2, alkaline phosphate 107, AST 18, ALT 11, cholesterol 157, triglycerides 97, HDL 63, LDL 76, CK 102. ECG on 06/04/2024 shows normal sinus rhythm with a rate of 75 beats per minute, RSR prime pattern, left axis deviation poor R-wave progression, compared to the previous EKG which was last done on 05/31/2023, PVCs are no longer seen, otherwise the EKG is unchanged ASSESSMENT Preoperative cardiac evaluation prior to right knee arthroplasty with abnormal EKG with poor R wave progression left anterior fascicular block cannot rule out old anterior infarct with a Lexiscan Myoview stress test with anterior ischemia with just mild disease prompting a cardiac CTA done on 07/27/2023 which showed mild nonobstructive coronary artery disease. She has no cardiac contraindication right total knee arthroplasty as scheduled on 09/03/2024. Coronary artery diseas with mild disease less than 50% in the LAD, less than 30% stenosis in the first diagonal branch, less than 25% stenosis in the left circumflex artery and less than 25% stenosis in the right coronary artery with a total calcium score of 37.3 stable, asymptomatic Abnormal ecg Myalgias, not improved with holding her statin so likely due to fibromyalgia Pure hypercholesterolemia on rosuvastatin 20 mg daily which he is tolerating but her LDL is not at ideal goal. She still has fibromyalgia pain but no significant change with the rosuvastatin History of fibromyalgia on gabapentin and Cymbalta Plan I recommend she follow a low fat low-cholesterol diet. She has no cardiac contraindication to a left total knee arthroplasty scheduled for July 04 at [facility]. I just asked her to hold her aspirin 1 week prior to surgery. Otherwise we will just continue her aspirin 81 mg daily and continue the rosuvastatin 40 mg daily. I asked her to return in 6 months and obtain a fasting lipid profile, CBC and a CMP prior to her follow up visit. I asked her to return sooner if she has any cardiac issues or problems. CARDIAC TESTING ECHOCARDIOGRAM 12/20/2023, The study showed normal left ventricular size, wall thickness and systolic function. LV ejection fraction, visually 55-60%. Diastolic dysfunction grade 1. Resting segmental wall motion analysis: total wall motion score is 1.00. There are no regional wall motion abnormalities. Normal right ventricular size and systolic function. Agitated saline bubble study is negative for intracardiac shunt. The estimated pulmonary artery systolic pressure is 33 mmHg. Normal estimated pulmonary artery systolic pressure. Trace tricuspid regurgitation. The IVC (inferior vena cava) was <2.1 cm and collapsibility >50%. The RA pressure is estimated to be 3 mmHg. Normal 2D/Doppler-echocardiog raphic study with normal left ventricular function and no significant valvular abnormalities. Lexiscan Myoview stress test 06/16/2023 was moderate-sized area of anterior ischemia accounting for 7% of the myocardium, TID index was increased to 1.37 and an LVEF of 66%. CARDIAC CTA: 07/27/2023 mild calcified atherosclerotic plaque which is most severe within the mild left anterior decending coronary artery and the bifurcation of the 1st diagonal branch above with mild stenosis (less than 50%) calcium score is 37.3 Not available 08/13/2024 12:28:04 Plan of Treatment Reminders Order Date Submit Date Provider Last Modified By Organization Details Last Modified Time Details Appointments ANY 15 2024 09:30A M Abby Bernardo MD Not available Not available Not available ANY 15 2024 10:30A Alexandrea Camp MD Not available Not available Not available Lab CMP, serum or plasma 2024 025 [email or web address] [facility], [address], [place], [address], 08/13/2024 12:27:15 lipid panel, serum 2024 025 [email or web address] [facility], [address], [place], [address], 08/13/2024 12:27:15 CBC w/ auto diff 2024 025 [email or web address] [facility], [address], [place], [address], 08/13/2024 12:27:15 CMP, serum or plasma 2024 025 RYAN [facility], [address], [place], [address], 08/06/2024 11:23:31 CK (creatine kinase), total, serum 2024 025 [place] [facility], [address], [place], [address], 08/06/2024 11:23:34 lipid panel, serum 2024 025 [place] [facility], [address], [place], [address], 08/06/2024 11:23:33 Referral None recorded. Procedures None recorded. Surgeries None recorded. Imaging electroca rdiogram 2024 025 [email or web address] In-Office Order, Internal Use Only DO Not Attach Compendium DO Not Attach Compendium, Do Not Delete/merge, [id number] 06/04/2024 13:46:21 Medication Orders baclofen 10 mg tablet 2024 025 [id number] [address], [place], [address], 09/24/2024 11:47:32 pramipexo le 0.25 mg tablet 2024 025 [id number], [address], [place], [address], 09/24/2024 11:47:32 gabapenti n 600 mg tablet 2024 025 [id number], [address], [place], [address], 09/24/2024 11:47:32 trazodone 50 mg tablet 2024 025 [facility] #[id number], [address], [place], [address], 09/24/2024 11:47:32 duloxetin e 60 mg capsule,d elayed release 2024 025 [facility] #[id number], [address], [place], [address], 07/03/2024 11:47:53 naproxen 500 mg tablet 2024 025 [id number], [address], [place], [address], 07/03/2024 11:47:52 acetamino phen 500 mg tablet 2024 025 [id number], [address], [place], [address], 07/03/2024 11:47:52 rosuvasta tin 40 mg tablet 2024 025 [id number], [address], [place], [address], 06/04/2024 13:46:28 hydrocodo ne 7.5 mg-acetam inophen 325 mg tablet 2023 [id number], [address], [place], [address], 08/13/2024 11:37:06 Patient TargetsNo targets recorded. Patient Instructions Encounter Date Encounter Id Patient Instructions Last Modified By Organization Details Last Modified Time 02/05/2024 [id number] restless legs syndrome: care instructions [email or web address] Not available 02/05/2024 17:27:32 high cholesterol : care instructions Not available 02/05/2024 17:27:32 06/04/2024 [id number] A healthy lifestyle: care instructions Not available 06/04/2024 13:46:21 07/03/2024 [id number] hypercalcemia: care instructions [email or web address] Not available 07/03/2024 11:47:33 When You Want to Lose Weight: Care Instructions [email or web address] Not available 07/03/2024 11:47:33 high cholesterol : care instructions [email or web address] Not available 07/03/2024 11:47:32 08/13/2024 [id number] A healthy lifestyle: care instructions Not available 08/13/2024 12:27:15 Reason for Referral None Reported. Results Created Date Observation Date Name Description Value Unit Range Abnormal Flag Note LastModifiedBy Organization Detail LastModifiedTime 05/07/19 25 05/08/2024 LIPID PROFI LE cholesterol, total 153 mg/dL 100-19 9 Not Available [facility] ([facility]) [address] [place], [address], 05/08/2024 08:24:15 05/07/19 25 05/08/2024 LIPID PROFI LE triglyceride s 80 mg/dL 0-149 Not Available [facility] ([facility]) [address] [place], [address], 05/08/2024 08:24:15 05/07/19 25 05/08/2024 LIPID PROFI LE HDL cholesterol 62 mg/dL >39 Not Available [facility] ([facility]) [address] [place], [address], 05/08/2024 08:24:15 05/07/19 25 05/08/2024 LIPID PROFI LE VLDL cholesterol brittney 15 mg/dL 5-40 Not Available [facility] ([facility]) [address] [place], [address], 05/08/2024 08:24:15 05/07/19 25 05/08/2024 LIPID PROFI LE LDL chol calc ([facility]) 76 mg/dL 0-99 Not Available [facility] ([facility]) [address] [place], [address], 05/08/2024 08:24:15 05/07/19 25 05/08/2024 CMP14 +EGFR glucose 91 mg/dL 70-99 Not Available [facility] ([facility]) [address] [place], [address], 05/08/2024 08:24:17 05/07/19 25 05/08/2024 CMP14 +EGFR BUN 17 mg/dL 8-27 Not Available [facility] ([facility]) [address] [place], [address], 05/08/2024 08:24:17 05/07/1905/08/2024 CMP14 +EGFR creatinine 0.58 mg/dL 0.57-1 .00 Not Available [facility] ([facility]) [address] [place], [address], 05/08/2024 08:24:17 05/07/19 25 05/08/2024 CMP14 +EGFR eGFR 100 mL/mi n/1.7 3 >59 Not Available [facility] ([facility]) [address] [place], [address], 05/08/2024 08:24:17 05/07/19 25 05/08/2024 CMP14 +EGFR BUN/creatini ne ratio 29 12-28 above high normal Not Available [facility] ([facility]) [address] [place], [address], 05/08/2024 08:24:17 05/07/19 25 05/08/2024 CMP14 +EGFR sodium 143 mmol/ L 134-14 4 Not Available [facility] ([facility]) [address] [facility], [place], [address], 05/08/2024 08:24:17 05/07/1905/08/2024 CMP14 +EGFR potassium 4.4 mmol/ L 3.5-5. 2 Not Available [facility] ([facility]) [address] [place], [address], 05/08/2024 08:24:17 05/07/19 25 05/08/2024 CMP14 +EGFR chloride 102 mmol/ L 96-106 Not Available [facility] ([facility]) [address] [place], [address], 05/08/2024 08:24:17 05/07/19 25 05/08/2024 CMP14 +EGFR carbon dioxide, total 31 mmol/ L 20-29 above high normal Not Available [facility] ([facility]) [address] [place], [address], 05/08/2024 08:24:17 05/07/19 25 05/08/2024 CMP14 +EGFR calcium 9.1 mg/dL 8.7-10 .3 Not Available [facility] ([facility]) [address] [place], [address], 05/08/2024 08:24:17 05/07/1905/08/2024 CMP14 +EGFR protein, total 6.2 g/dL 6.0-8. 5 Not Available [facility] ([facility]) [address] [place], [address], 05/08/2024 08:24:17 05/07/1905/08/2024 CMP14 +EGFR albumin 4.0 g/dL 3.9-4. 9 Not Available [facility] ([facility]) [address] [place], [address], 05/08/2024 08:24:17 05/07/19 25 05/08/2024 CMP14 +EGFR globulin, total 2.2 g/dL 1.5-4. 5 Not Available [facility] ([facility]) [address] [place], [address], 05/08/2024 08:24:17 05/07/19 25 05/08/2024 CMP14 +EGFR bilirubin, total <0.2 mg/dL 0.0-1. 2 Not Available [facility] ([facility]) [address] [place], [address], 05/08/2024 08:24:17 05/07/19 25 05/08/2024 CMP14 +EGFR alkaline phosphatase 89 IU/L 44-121 Not Available [facility] ([facility]) [address] [facility] [place], [address], 05/08/2024 08:24:17 05/07/19 25 05/08/2024 CMP14 +EGFR AST (SGOT) 22 IU/L 0-40 Not Available [facility] ([facility]) [address] [facility], [place], [address], 05/08/2024 08:24:17 05/07/19 25 05/08/2024 CMP14 +EGFR ALT (SGPT) 15 IU/L 0-32 Not Available [facility] ([facility]) [address] [facility], [place], [address], 05/08/2024 08:24:17 05/07/19 25 05/08/2024 CK, TOTAL creatine kinase,total 117 U/L 32-182 Not Available [facility] ([facility]) [address] [facility], [place], [address], 05/08/2024 08:24:18 05/28/1906/04/2024 COMPL IANCE DRUG ELISABETH SIS, UR summary report (summary) FINAL ===== ===== ===== ===== ===== ===== ===== ===== ===== ===== ===== ===== ===== === TOXAS SURE COMP DRUG ELISABETH SIS,U R ===== ===== ===== ===== ===== ===== ===== ===== ===== ===== ===== ===== ===== === Test Resul t Flag Units Drug Prese nt Carbo xy-TH C 654 ng/mg creat Carbo xy-TH C is a metab olite of tetra hydro canna binol (THC) . Sourc e of THC is most commo nly herba l marij uana or marij uana- based produ cts, but THC is also prese nt in a sched uled presc ripti on medic ation . Trace amoun ts of THC can be prese nt in hemp and canna bidio l (CBD) produ cts. This test is not inten ded to disti nguis h betwe en delta -9-te trahy droca nnabi nol, the predo minan t form of THC in most herba l or marij uana- based produ cts, and delta -8-te trahy droca nnabi nol. Cicero codon e 2597 ng/mg creat Cicero morph one 222 ng/mg creat Dihyd rocod eine 272 ng/mg creat Norhy droco done 4914 ng/mg creat Sourc es of hydro codon e inclu de sched uled presc ripti on medic ation s. Cicero morph one, dihyd rocod eine and norhy droco done are expec kurt metab olite s of hydro codon e. Cicero morph one and dihyd rocod eine are also avail able as sched uled presc ripti on medic ation s. Metha done 83 ng/mg creat EDDP (Meth adone Mtb) 75 ng/mg creat Sourc es of metha done inclu de sched uled presc ripti on medic ation s. EDDP is an expec kurt metab olite of metha done. Gabap entin PRESE NT Baclo fen PRESE NT Dulox etine PRESE NT Trazo done PRESE NT 1,3 chlor ophen yl piper azine PRESE NT 1,3-c hloro pheny l piper azine is an expec kurt metab olite of trazo done. Aceta minop hen PRESE NT Dextr ometh orpha n PRESE NT Dextr orpha n/Lev orpha nol PRESE NT Dextr orpha n is an expec kurt metab olite of dextr ometh orpha n, an over- the-c ounte r or presc ripti on cough suppr essan t. Dextr orpha n canno t be disti nguis hed from the sched uled presc ripti on medic ation levor phano l by the metho d used for elisabeth sis. ===== ===== ===== ===== ===== ===== ===== ===== ===== ===== ===== ===== ===== === Test Resul t Flag Units Ref Range Creat inine 95 mg/dL >=20 ===== ===== ===== ===== ===== ===== ===== ===== ===== ===== ===== ===== ===== === Decla red Medic ation s: Medic ation list was not provi ded. ===== ===== ===== ===== ===== ===== ===== ===== ===== ===== ===== ===== ===== === For clini brittney consu ltati on, pleas e call . ===== ===== ===== ===== ===== ===== ===== ===== ===== ===== ===== ===== ===== === Not Available [facility] ([facility]) [address] [place], [address], 06/04/2024 13:10:46 05/28/19 25 06/04/2024 COMPL IANCE DRUG ELISABETH SIS, UR pdf . Not Available [facility] ([facility]) [address] [place], [address], 06/04/2024 13:10:46 08/06/19 25 08/06/2024 COMP. METAB OLIC PANEL (14) glucose 102 mg/dL 70-99 above high normal Not Available [facility] ([facility]) [address] [place], [address], 08/06/2024 11:23:31 08/06/19 25 08/06/2024 COMP. METAB OLIC PANEL (14) BUN 18 mg/dL 8-27 Not Available [facility] ([facility]) [address] [place], [address], 08/06/2024 11:23:31 08/06/19 25 08/06/2024 COMP. METAB OLIC PANEL (14) creatinine 0.68 mg/dL 0.57-1 .00 Not Available [facility] ([facility]) [address] [facility], [place], [address], 08/06/2024 11:23:31 08/06/19 25 08/06/2024 COMP. METAB OLIC PANEL (14) eGFR 97 mL/mi n/1.7 3 >59 Not Available [facility] ([facility]) [address] [facility], [place], [address], 08/06/2024 11:23:31 08/06/19 25 08/06/2024 COMP. METAB OLIC PANEL (14) BUN/creatini ne ratio 26 12-28 Not Available [facility] ([facility]) [address] [facility], [place], [address], 08/06/2024 11:23:31 08/06/19 25 08/06/2024 COMP. METAB OLIC PANEL (14) sodium 142 mmol/ L 134-14 4 Not Available [facility] ([facility]) [address] [place], [address], 08/06/2024 11:23:31 08/06/19 25 08/06/2024 COMP. METAB OLIC PANEL (14) potassium 4.5 mmol/ L 3.5-5. 2 Not Available [facility] ([facility]) [address] [place], [address], 08/06/2024 11:23:31 08/06/19 25 08/06/2024 COMP. METAB OLIC PANEL (14) chloride 105 mmol/ L 96-106 Not Available [facility] ([facility]) [address] [place], [address], 08/06/2024 11:23:31 08/06/19 25 08/06/2024 COMP. METAB OLIC PANEL (14) carbon dioxide, total 25 mmol/ L 20-29 Not Available [facility] ([facility]) [address] [place], [address], 08/06/2024 11:23:31 08/06/19 25 08/06/2024 COMP. METAB OLIC PANEL (14) calcium 9.8 mg/dL 8.7-10 .3 Not Available [facility] ([facility]) [address], [place], [address], 08/06/2024 11:23:31 08/06/19 25 08/06/2024 COMP. METAB OLIC PANEL (14) protein, total 7.0 g/dL 6.0-8. 5 Not Available [facility] ([facility]) [address] [place], [address], 08/06/2024 11:23:31 08/06/19 25 08/06/2024 COMP. METAB OLIC PANEL (14) albumin 4.4 g/dL 3.9-4. 9 Not Available [facility] ([facility]) [address] [place], [address], 08/06/2024 11:23:31 08/06/19 25 08/06/2024 COMP. METAB OLIC PANEL (14) globulin, total 2.6 g/dL 1.5-4. 5 Not Available [facility] ([facility]) [address] [place], [address], 08/06/2024 11:23:31 08/06/19 25 08/06/2024 COMP. METAB OLIC PANEL (14) bilirubin, total 0.3 mg/dL 0.0-1. 2 Not Available [facility] ([facility]) [address] [place], [address], 08/06/2024 11:23:31 08/06/19 25 08/06/2024 COMP. METAB OLIC PANEL (14) alkaline phosphatase 89 IU/L 44-121 Not Available [facility]) [address] [place], [address], 08/06/2024 11:23:31 08/06/19 25 08/06/2024 COMP. METAB OLIC PANEL (14) AST (SGOT) 21 IU/L 0-40 Not Available [facility] ([facility]) [address] [place], [address], 08/06/2024 11:23:31 08/06/19 25 08/06/2024 COMP. METAB OLIC PANEL (14) ALT (SGPT) 16 IU/L 0-32 Not Available [facility] ([facility]) [address] [place], [address], 08/06/2024 11:23:31 08/06/19 25 08/06/2024 LIPID PROFI LE cholesterol, total 164 mg/dL 100-19 9 Not Available [facility] ([facility]) [address] [place], [address], 08/06/2024 11:23:33 08/06/19 25 08/06/2024 LIPID PROFI LE triglyceride s 161 mg/dL 0-149 above high normal Not Available [facility] ([facility]) [address] [place], [address], 08/06/2024 11:23:33 08/06/19 25 08/06/2024 LIPID PROFI LE HDL cholesterol 69 mg/dL >39 Not Available [facility] ([facility]) [address] [place], [address], 08/06/2024 11:23:33 08/06/19 25 08/06/2024 LIPID PROFI LE VLDL cholesterol brittney 27 mg/dL 5-40 Not Available [facility] ([facility]) [address] [facility], [place], [address], 08/06/2024 11:23:33 08/06/19 25 08/06/2024 LIPID PROFI LE LDL chol calc ([facility]) 68 mg/dL 0-99 Not Available [facility] ([facility]) [address] [facility], [place], [address], 08/06/2024 11:23:33 08/06/19 25 08/06/2024 CREAT INE KINAS E,TOT AL creatine kinase,total 87 U/L 32-182 Not Available [facility] ([facility]) [address] [facility], [place], [address], 08/06/2024 11:23:34 06/04/19 25 06/04/2024 elect rocar diogr am No observ ation record ed. RYAN In-Office Order Internal Use Only DO Not Attach Compendium DO Not Attach Compendium, Do Not Delete/merge, [id number] 06/04/2024 13:50:37 06/04/19 elect rocar diogr am No observ ation record ed. [email or web address] Not Available 06/04 13:50:38 Result Notes None recorded. Problems Name Problem SNOMED Code Status Onset Date Resolution Date Notes Provider Name and Address Organization Details Recorded Time Prolapse d cervical interver tebral disc 164155009 Active 2016 Not Available [facility] 1 20:05:16 Knee pain Active 2016 Not Available [facility] 1 20:05:16 Partial tear, knee, lateral collater al ligament 515302302 Active 2016 Not Available [facility] 1 20:05:16 Tear of meniscus of knee 816916074 Active 2016 Not Available [facility] 1 20:05:15 Obese 722950734 Active 2016 Not Available [facility] 1 20:05:16 Follicul itis 78264451 Active 2016 Not Available [facility] 1 20:05:16 Foreign body in left ear 30350468293 502542 Active 2017 Not Available [facility] 1 20:05:16 Upper respirat ory infectio n 39977164 Active 2017 Not Available [facility] 1 20:05:15 Bilatera l 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 47832342417 132909 Active 2018 Not Available [facility] 1 20:05:15 Screenin g for malignan t neoplasm of breast Active 2018 Not Available [facility] 1 20:05:16 Vitamin D deficien cy 67073553 Active 2018 Not Available [facility] 1 20:05:16 Fibromya lgia 323708592 Active 2018 Not Available [facility] 1 20:05:16 Pain in right knee Active 2018 Not Available [facility] 1 20:05:15 Chronic low back pain 002185993 Active 2018 Not Available [facility] 1 20:05:15 Prolapse d lumbar interver tebral disc 891229768 Active 2018 Not Available [facility] 1 20:05:15 Acute sinusiti s 16701112 Active 2019 Not Available [facility] 1 20:05:16 Rupture of anterior cruciate ligament 682880562 Active 2019 left knee; see mri 0 of left knee . Alex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 Acne N Eating Disorder N Skin Problems N Anemia N Heart Attack (MA) N Diabetes N Ovarian Cancer N Blood Transfusions N Seizures/Epilepsy N Abuse/Domestic Violence N Asthma N Allergies N Hepatitis N Heart Disease N Pre-Eclampsia N Heart Failure N Osteoporosis Y Gynecological History Statement/Question Response On BCP's at Conception? N STIs/STDs N HPV Vaccine N Duration of Flow (days) 7 Most Recent Mammogram 04/21/2017 Age at Menarche 13 Current Control Method Menopause If Post Menopausal, Age at Menopause 52 Sexually Active? Y Menses Monthly N Date of Last Pap Smear 04/07/2017 Sexual Problems? N LMP Desired Control Method None Obstetrics History GPAL:G 0 P 0 0 0 0 Type Value Multiple Births 0 Full Term 0 Induced 0 Spontaneous 0 Premature 0 Living 0 Ectopics 0 Total 0 Immunizations Vaccine Type Date Status Note Provider Nam e and Address Organization Details Recorded Time SARS-COV-2 (COVID-19) vaccine, UNSPECIFIED 1 completed Daily Rawls [place] null, [place] - [facility] 05/31/2021 16:28:35 Influenza, split virus, quadrivalent, PF 6 completed Not Available [facility] 05/11/2019 02:44:54 Influenza, split virus, quadrivalent, PF 2 completed Not Available [facility] 09/24/2024 10:52:05 Influenza, split virus, quadrivalent, preservative 7 completed Not Available [facility] 05/11/2019 02:34:25 Influenza, split virus, quadrivalent, PF 8 completed Not Available [facility] 05/11/2019 02:39:48 Influenza, split virus, quadrivalent, preservative 9 completed Not Available [facility] 05/11/2019 02:38:14 Influenza, split virus, quadrivalent, preservative 0 completed Kaleigh Ponce [place] null, [place] - [facility] 02/05/2020 10:39:02 Influenza, split virus, quadrivalent, preservative 1 completed Kaleigh Ponce [place], [place] [facility] 04/08/2021 16:34:08 Influenza, split virus, quadrivalent, PF 3 completed Gabriela Fletcher [place], [place] [facility] 02/07/2023 17:17:36 Influenza, high-dose, trivalent, PF 4 completed Azucena Manrique [place], [place] [facility] 02/05/2024 17:53:38 Influenza, split virus, quadrivalent, preservative 5 completed Not Available [facility] 05/11/2019 02:32:10 Past Encounters Encounter ID Performer Location Encounter Start Date Encounter Closed Date Diagnosis/Indication Diagnosis SNOMED-CT Code Diagnosis ICD10 Code Diagnosis Note [id number] LUCIE Francisco (Adult Med) [address] [place] [address] [id number] 0 03/14/2014 15:42:24 03/17/2014 23:37:35 Arthritis 8425968 Obesity 868446789 Hyperlipidemia 70579284 Arthropathy [id number] MD Emerson Steen (Adult Med) [address] [place] [address] [id number] 0 05/02/2014 15:13:22 05/02/2014 15:50:21 Arthritis 6202506 Arthropathy 107604871 Hyperlipidemia 30453696 Obesity 699709482 Ankle pain 029706634 [id number] LUCIE Francisco (Adult Med) [address] [place] [address] [id number] 0 08/29/2014 14:52:39 09/02/2014 15:40:52 Obesity 154797092 Hyperlipidemia 35996159 Ankle pain 891179967 Knee pain 11086117 Arthritis 1566867 Arthropathy 982911360 Insomnia 389164906 [id number] MD Emerson Steen (Adult Med) [address] [place] [address] [id number] 0 11/14/2014 15:38:00 11/14/2014 16:19:57 Obesity 044173978 Hyperlipidemia 44038193 Ankle pain 187833616 Knee pain 40837067 Arthritis 3789197 Insomnia 163018486 Arthropathy 930022288 Pilonidal cyst 26536231 [id number] MD Emerson Steen (Adult Med) [address] [place] [address] [id number] 0 12/25/2014 15:52:37 12/25/2014 16:50:08 Scapulalgia 00742075 Adult heal th examination 757589180 [id number] LUCIE Francisco (Adult Med) [address] [place] [address] [id number] 0 02/26/2015 15:50:09 02/26/2015 16:22:27 Adult health examination 259234731 Z00.00 Ankle pain 423358253 M25 .579 Arthritis 0723558 M19.90 Arthropathy 039881921 M1 2.9 Hyperlipidemia 91962193 E78.5 Insomnia 987765997 G47.0 0 Knee pain 17710914 M25.5 69 Obesity 703520647 E66.9 Administra tion of influenza vaccine 47185817 Z23 Restless legs 08850380 G 25.81 [id number] LUCIE Francisco (Adult Med) [address] [place] [address] [id number] 0 03/18/2015 12:44:46 03/23/2015 12:17:21 Lower back injury 748436972 S39.82XA muscle spasm: no trauma; 10 on a scale of 1 -10. Hyperlipidemia 37812932 E78.5 Insomnia 213536192 G47.0 0 Knee pain 21538469 M25.5 69 [id number] MD Emerson Mackey (M[employer]INE [employer]) [address] [place] [address] [id number] 0 04/23/2015 15:18:33 04/23/2015 17:30:37 Gynecologic examination 12818723 Z01.419 Screening for malignant neoplasm of breast 000467948 Z12.39 Menopausal syndrome 1237 12033 N95.9 [id number] LUCIE Francisco (Adult Med) [address] [place] [address] [id number] 0 05/01/2015 15:49:23 05/01/2015 16:16:06 Hyperlipidemia 46235175 E78.5 Insomnia 284108710 G47.0 0 Knee pain 54247099 M25.5 69 Lower back injury 944374 005 S39.82XA muscle spasm: no trauma; 10 on a scale of 1 -10. Obesity 821775641 E66.9 Restless legs 06529171 G 25.81 Snoring 49165667 R06.83 [id number] LUCIE Francisco (Adult Med) [address] [place] [address] [id number] 0 07/02/2015 15:58:35 07/02/2015 16:49:37 Obesity 470745628 E66.9 Chronic th oracic back pain 7019516523 18480 M54.6 Epidermoid cyst of skin 852131231 L72.0 [id number] LUCIE Francisco (Adult Med) [address] [place] [address] [id number] 0 08/20/2015 16:05:44 08/20/2015 16:39:59 Chronic thoracic back pain 0395503981 34513 M54.6 [id number] MD Emerson Steen (Adult Med) [address] [place] [address] [id number] 0 10/22/2015 16:07:46 10/22/2015 17:48:26 Chronic thoracic back pain 7539240044 38298 M54.6 Arthritis 3549282 M19.90 Hyperlipidemia 89342409 E78.5 Insomnia 597357996 G47.0 0 Knee pain 40323607 M25.5 69 Obesity 663186029 E66.9 Restless legs 57404933 G 25.81 Sleep apnea 16151690 G47 .30 [id number] MD Emerson Steen (Adult Med) [address] [place] [address] [id number] 0 02/12/2016 16:28:47 02/25/2016 11:04:20 Administration of influenza vaccine 46174023 Z23 [id number] MD Emerson Steen (Adult Med) [address] [place] [address] [id number] 0 06/03/2016 15:25:30 06/03/2016 16:29:09 Scapulalgia 46779971 M89.8X1 Chronic th oracic back pain 9853724055 14673 M54.6 Lower back injury 454007 005 S39.82XA muscle spasm: no trauma; 10 on a scale of 1 -10. Knee pain 71161059 M25.5 69 Restless legs 60766074 G 25.81 Arthritis 4922673 M19.90 Obesity 559144420 E66.9 Arthropathy 160555011 M1 2.9 cannot tolerate gabapentin , blurry eyesight Hyperlipidemia 53516712 E78.5 Sleep apnea 49924919 G47 .30 [id number] Jose Ramon Luis MD [facility] (Adult Med) [address] [place] [address] [id number] 0 08/05/2016 16:04:06 08/05/2016 16:47:42 Restless legs 81896650 G25.81 Knee pain 29527530 M25.5 69 left Hyperlipidemia 60164509 E78.5 Arthritis 0723940 M19.90 Subluxatio n of knee joint 676624608 S83.102D since 08/19/14 [id number] [facility] [address] [place] [address] [id number] 10/20/2016 16:16:10 10/21/2016 09:46:11 Infestation by Trombicula 00572872 B88.0 Insomnia 492280164 G47.0 0 Lower back injury 865263 005 S39.82XA muscle spasm: no trauma; 10 on a scale of 1 -10. Restless legs 23757549 G 25.81 Chronic th oracic back pain 9933998279 88848 M54.6 [id number] MD Emerson Steen (Adult Med) [address] [place] [address] [id number] 0 12/16/2016 15:48:52 12/16/2016 16:31:37 Subluxation of knee joint 627075320 S83.102D since 08/19/14 Knee pain 07135111 M25.5 69 Obesity 215810212 E66.9 Arthropathy 420805544 M1 2.9 cannot tolerate gabapentin , blurry eyesight Scapulalgia 04636431 M89 .8X1 Neck pain 14512128 M54.2 Insomnia 049271700 G47.0 0 Restless legs 15363606 G 25.81 Arthritis 0918818 M19.90 Sleep apnea 38654382 G47 .30 [id number] MD Emerson Steen (Adult Med) [address] [place] [address] [id number] 0 02/16/2017 16:21:44 02/21/2017 09:41:47 Knee pain 26919601 M25.569 Lower back injury 310478 005 S39.82XA muscle spasm: no trauma; 10 on a scale of 1 -10. Restless legs 04595923 G 25.81 Scapulalgia 48000746 M89 .8X1 Administra tion of influenza vaccine 97861132 Z23 Arthropathy 478068945 M1 2.9 cannot tolerate gabapentin , blurry eyesight Hyperlipidemia 56418973 E78.5 [id number] MD Emerson Steen (Adult Med) [address] [place] [address] [id number] 0 03/31/2017 16:25:36 03/31/2017 17:30:39 Prolapsed cervical intervertebral disc 392979175 M50.20 Knee pain 64240058 M25.5 69 Arthropathy 816334867 M1 2.9 cannot tolerate gabapentin , blurry eyesight Tear of me niscus of knee 398256390 S83.207D lateral and medial Insomnia 966814432 G47.0 0 Restless legs 72018586 G 25.81 Arthritis 5384176 M19.90 Hyperlipidemia 35873795 E78.5 Sleep apnea 17360676 G47 .30 [id number] MD Emerson Asher (MACHINE [employer]) [address] [place] [address] [id number] 0 04/07/2017 12:13:39 04/07/2017 14:57:47 Gynecologic examination 83360704 Z01.419 Screening mammography 24 206996 Z12.31 Obese 919241402 E66.09 Advised 30 minutes of exercise 5 days/week Advised to not drink her calories Advised 3 balanced meals/day with plenty of fruits and vegetables [id number] Jose Ramon Luis MD [facility] (Adult Med) [address] [place] [address] [id number] 0 05/09/2017 12:39:25 05/10/2017 09:36:11 Foreign body in left ear 4017772262 9249864 T16.2XXA tissue Upper resp iratory infection 73479528 J06.9 Neck pain 17379483 M54.2 Insomnia 586112732 G47.0 0 Restless legs 55444257 G 25.81 Obesity 380277961 E66.9 Hyperlipidemia 07389018 E78.5 Sleep apnea 98530719 G47 .30 [id number] Jose Ramon Luis MD [facility] (Adult Med) [address] [place] [address] [id number] 0 06/02/2017 16:15:42 06/02/2017 17:09:38 Arthropathy 645901385 M12.9 cannot tolerate gabapentin , blurry eyesight [id number] Jose Ramon Luis MD [facility] (Adult Med) [address] [place] [address] [id number] 0 09/01/2017 16:32:54 09/01/2017 17:41:16 Folliculitis 28877787 L73.9 Arthropathy 140295245 M1 2.9 cannot tolerate gabapentin , blurry eyesight Insomnia 629730480 G47.0 0 Knee pain 43252356 M25.5 69 Hyperlipidemia 39145936 E78.5 Restless legs 35494918 G 25.81 Obese 503253784 E66.9 Arthritis 2563138 M19.90 Sleep apnea 04371214 G47 .30 [id number] Jose Ramon Luis MD [facility] (Adult Med) [address] [place] [address] [id number] 0 12/07/2017 14:29:50 12/07/2017 15:29:21 Folliculitis 43646186 L73.9 Scapulalgia 95153043 M89 .8X1 Obese 885786189 E66.9 Partial te ar, knee, lateral collateral ligament 661841731 S83.422D Prolapsed cervical intervertebral disc 270492088 M50.20 Neck pain 63333702 M54.2 Restless legs 07476252 G 25.81 Obesity 143788621 E66.9 Hyperlipidemia 30588651 E78.5 Sleep apnea 76474977 G47 .30 [id number] Jose Ramon Luis MD [facility] (Adult Med) [address] [place] [address] [id number] 0 03/01/2018 15:05:08 03/01/2018 16:44:11 Prolapsed cervical intervertebral disc 179094951 M50.20 Arthropathy 509323813 M1 2.9 cannot tolerate gabapentin , blurry eyesight Scapulalgia 21723403 M89 .8X1 Administra tion of influenza vaccine 00301371 Z23 Sleep apnea 30596769 G47 .30 Hyperlipidemia 19370885 E78.5 Restless legs 79310729 G 25.81 Insomnia 102803187 G47.0 0 Knee pain 84304579 M25.5 69 Tear of me niscus of knee 719876262 S83.207D lateral and medial Obese 107665892 E66.9 Partial te ar, knee, lateral collateral ligament 564681813 S83.422D Neck pain 94980105 M54.2 [id number] Jose Ramon Luis MD [facility] (Adult Med) [address] [place] [address] [id number] 0 05/31/2018 14:59:46 05/31/2018 15:52:46 Scapulalgia 36110056 M89.8X1 Bilateral tendonitis of wrists 8867386574 2984019 M77.8 Prolapsed cervical intervertebral disc 063209402 M50.20 Arthropathy 240079063 M1 2.9 cannot tolerate gabapentin , blurry eyesight Hyperlipidemia 62920435 E78.5 Obesity 602749711 E66.9 Sleep apnea 66720996 G47 .30 Tear of me niscus of knee 764176043 S83.207D lateral and medial Obese 678079112 E66.9 Chronic th oracic back pain 4491092224 99516 M54.6 Insomnia 946408873 G47.0 0 Restless legs 06631991 G 25.81 Arthritis 4452313 M19.90 [id number] Jose Ramon Luis MD [facility] (Adult Med) [address] [place] [address] [id number] 0 06/28/2018 14:59:33 06/29/2018 09:36:59 Arthropathy 763326399 M12.9 cannot tolerate gabapentin , blurry eyesight Vitamin D deficiency 347 66496 E55.9 Bilateral tendonitis of wrists 0973447010 1042867 M77.8 Partial te ar, knee, lateral collateral ligament 157536907 S83.422D Knee pain 90990135 M25.5 69 Prolapsed cervical intervertebral disc 914691337 M50.20 Neck pain 48321877 M54.2 Chronic th oracic back pain 7295424702 43237 M54.6 Insomnia 550229108 G47.0 0 Scapulalgia 58172270 M89 .8X1 Restless legs 69364514 G 25.81 Arthritis 1745335 M19.90 Hyperlipidemia 88809080 E78.5 Sleep apnea 11464088 G47 .30 Obesity 105356295 E66.9 [id number] Jose Ramon Luis MD [facility] (Adult Med[facility] [address] [place] [address] [id number] 0 09/28/2018 15:07:08 09/28/2018 15:45:08 Arthropathy 865512768 M12.9 cannot tolerate gabapentin , blurry eyesight Scapulalgia 65289895 M89 .8X1 Vitamin D deficiency 347 43152 E55.9 Tear of me niscus of knee 901411605 S83.207D lateral and medial Obese 970537537 E66.9 Partial te ar, knee, lateral collateral ligament 639031814 S83.422D Prolapsed cervical intervertebral disc 408435193 M50.20 Insomnia 441303567 G47.0 0 Restless legs 51606993 G 25.81 Hyperlipidemia 91854369 E78.5 Obesity 947351112 E66.9 [id number] MD Emerson Mackey (MACHINE [employer]) [address] [place] [address] [id number] 0 10/11/2018 15:13:10 10/15/2018 10:06:50 Vitamin D deficiency 08643256 E55.9 Gynecologi c examination 34733665 Z01.419 Z11.51 Screening mammography 24 701036 Z12.31 Menopausal syndrome 1237 45962 N95.9 [id number] Jose Ramon Luis MD [facility] (Adult Med) [address] [place] [address] [id number] 0 01/04/2019 15:57:46 01/07/2019 09:22:25 Scapulalgia 75516093 M89.8X1 Fibromyalgia 857755383 M 79.7 Arthropathy 585694702 M1 2.9 cannot tolerate gabapentin , blurry eyesight Knee pain 77405480 M25.5 69 Pain in right knee 71203 75428 83648 M25.561 Vitamin D deficiency 347 11238 E55.9 Tear of me niscus of knee 259450750 S83.207D lateral and medial Obese 009569373 E66.9 Prolapsed cervical intervertebral disc 604647431 M50.20 Insomnia 493492756 G47.0 0 Restless legs 56992037 G 25.81 Arthritis 7199325 M19.90 Hyperlipidemia 04996353 E78.5 Sleep apnea 23661601 G47 .30 [id number] Jose Ramon Luis MD [facility] (Adult Med) [address] [place] [address] [id number] 0 01/31/2019 16:24:05 01/31/2019 17:42:42 Scapulalgia 83424338 M89.8X1 Hyperlipidemia 57664397 E78.5 Sleep apnea 34513191 G47 .30 Chronic low back pain 27 1164688 M54.5 Arthropathy 412744727 M1 2.9 cannot tolerate gabapentin , blurry eyesight Administra tion of influenza vaccine 51877109 Z23 [id number] Jose Ramon Luis MD [facility] (Adult Med) [address] [place] [address] [id number] 0 02/28/2019 16:34:26 03/01/2019 10:43:12 Prolapsed lumbar intervertebral disc 761703348 M51.26 Scapulalgia 18593610 M89 .8X1 Pain in right knee 55196 96734 25120 M25.561 Chronic low back pain 27 7435214 M54.5 Fibromyalgia 962577022 M 79.7 Vitamin D deficiency 347 05460 E55.9 Bilateral tendonitis of wrists 9793853633 4848917 M77.8 Obese 151979939 E66.9 Partial te ar, knee, lateral collateral ligament 907344278 S83.422D Prolapsed cervical intervertebral disc 018727116 M50.20 Neck pain 19944897 M54.2 Insomnia 540778967 G47.0 0 Restless legs 75899071 G 25.81 Arthritis 4789271 M19.90 Hyperlipidemia 26064953 E78.5 Sleep apnea 02612964 G47 .30 [id number] MD Emerson Steen (Adult Med) [address] [place] [address] [id number] 0 03/28/2019 16:32:14 03/29/2019 10:02:43 Pain in right knee 3827501790 59047 M25.561 Fibromyalgia 485982197 M 79.7 Arthropathy 094472529 M1 2.9 cannot tolerate gabapentin , blurry eyesight Insomnia 887213391 G47.0 0 Arthritis 5549241 M19.90 Chronic low back pain 27 5961880 M54.5 Chronic th oracic back pain 8784416764 08757 M54.6 Hyperlipidemia 65592169 E78.5 Obese 119398623 E66.9 Partial te ar, knee, lateral collateral ligament 869648591 S83.422D Prolapsed lumbar intervertebral disc 460700285 M51.26 Restless legs 96273185 G 25.81 Scapulalgia 37197114 M89 .8X1 Sleep apnea 47948233 G47 .30 Tear of me niscus of knee 697907931 S83.207D lateral and medial Vitamin D deficiency 347 44590 E55.9 [id number] MD Emerson Steen (Adult Med) [address] [place] [address] [id number] 0 05/20/2019 16:45:33 05/20/2019 17:24:01 Acute sinusitis 56292058 J01.90 Restless legs 90161319 G 25.81 Arthropathy 804371236 M1 2.9 cannot tolerate gabapentin , blurry eyesight Sleep apnea 27433307 G47 .30 Pain in right knee 10068 23510 08700 M25.561 Hyperlipidemia 55092501 E78.5 Insomnia 240978883 G47.0 0 Neck pain 86037187 M54.2 Obese 642828545 E66.9 Partial te ar, knee, lateral collateral ligament 385216825 S83.422D Prolapsed lumbar intervertebral disc 549979754 M51.26 Tear of me niscus of knee 309313931 S83.207D lateral and medial Vitamin D deficiency 347 80619 E55.9 [id number] MD Emerson Steen (Adult Med) [address] [place] [address] [id number] 0 07/04/2019 16:19:51 07/05/2019 11:42:42 Vitamin D deficiency 64528131 E55.9 Tear of me niscus of knee 899805139 S83.207D lateral and medial Prolapsed lumbar intervertebral disc 446390385 M51.26 Prolapsed cervical intervertebral disc 169587151 M50.20 Verruca vulgaris 7179651 3 B07.9 Obese 077972088 E66.9 Arthropathy 562711470 M1 2.9 cannot tolerate gabapentin , blurry eyesight Pain in right knee 22518 20058 52480 M25.561 Fibromyalgia 612440841 M 79.7 Hyperlipidemia 56857710 E78.5 Insomnia 847604512 G47.0 0 [id number] LUCIE Francisco (Adult Med) [address] [place] [address] 74927-023 0 08/05/2019 09:30:25 08/05/2019 12:28:59 Fibromyalgia 829498963 M79.7 Hyperlipidemia 97271147 E78.5 Arthropathy 399193125 M1 2.9 cannot tolerate gabapentin , blurry eyesight Pain in right knee 67151 95060 16006 M25.561 Vitamin D deficiency 347 88663 E55.9 Sleep apnea 10190723 G47 .30 Restless legs 69374263 G 25.81 Prolapsed cervical intervertebral disc 325084565 M50.20 Prolapsed lumbar intervertebral disc 274186932 M51.26 Partial te ar, knee, lateral collateral ligament 560445465 S83.422D Insomnia 545071745 G47.0 0 Knee pain 60437218 M25.5 69 [id number] MD Emerson Steen (Adult Med) [address] [place] [address] [id number] 0 09/11/2019 09:18:23 09/11/2019 12:36:52 Pain in right knee 8710671341 49176 M25.561 Arthropathy 454792967 M1 2.9 cannot tolerate gabapentin , blurry eyesight Chronic low back pain 27 8616668 M54.5 Fibromyalgia 595567291 M 79.7 Hyperlipidemia 77105060 E78.5 Insomnia 187585322 G47.0 0 Knee pain 79347030 M25.5 69 Neck pain 09174402 M54.2 Prolapsed lumbar intervertebral disc 601592738 M51.26 Prolapsed cervical intervertebral disc 538078927 M50.20 Restless legs 14179890 G 25.81 Sleep apnea 67904175 G47 .30 Vitamin D deficiency 347 81345 E55.9 Rupture of anterior cruciate ligament 976906901 S83.512D [id number] MD Emerson Steen (Adult Med) [address] [place] [address] [id number] 0 10/31/2019 16:43:16 10/31/2019 17:27:07 Knee pain 56413590 M25.569 Partial te ar, knee, lateral collateral ligament 436944073 S83.422D Prolapsed cervical intervertebral disc 531649129 M50.20 Prolapsed lumbar intervertebral disc 843680621 M51.26 Rupture of anterior cruciate ligament 789509117 S83.512D Tear of me niscus of knee 036219980 S83.207D lateral and medial Arthropathy 741365768 M1 2.9 cannot tolerate gabapentin , blurry eyesight Fibromyalgia 981630799 M 79.7 Insomnia 799950526 G47.0 0 Pain in right knee 61099 81524 58056 M25.561 Vitamin D deficiency 347 39442 E55.9 Sleep apnea 94879044 G47 .30 Arthritis 8124218 M19.90 Hyperlipidemia 76017240 E78.5 Chronic low back pain 27 0596105 M54.5 Chronic th oracic back pain 1249767682 44324 M54.6 Restless legs 31887565 G 25.81 [id number] MD Eemrson Mackey (MACHINE [employer]ER) [address] [place] [address] [id number] 0 12/05/2019 15:14:12 12/05/2019 19:54:01 Screening mammography 21260200 Z12.31 History of methicillin resistant Staphylococcus aureus infection 145491065 Z86.14 Eruption 984126403 R21 [id number] Jose Ramon Luis MD [facility] (Adult Med) [address] [place] [address] 67653-282 0 12/26/2019 08:45:20 12/27/2019 10:46:54 Arthropathy 251897333 M12.9 cannot tolerate gabapentin , blurry eyesight Fibromyalgia 732116653 M 79.7 Pain in right knee 96347 65914 76777 M25.561 Normal grief reaction 27 1110681 F43.20 Anxiety 24955234 F41.9 Hyperlipidemia 48980258 E78.5 Insomnia 415934353 G47.0 0 Prolapsed cervical intervertebral disc 842226917 M50.20 Prolapsed lumbar intervertebral disc 104258370 M51.26 Rupture of anterior cruciate ligament 880310358 S83.512D Sleep apnea 24369152 G47 .30 Subluxatio n of knee joint 578898653 S83.102D since 08/19/14 Tear of me niscus of knee 013669640 S83.207D lateral and medial Vitamin D deficiency 347 55307 E55.9 [id number] Jose Ramon Luis MD [facility] (Adult Med) [address] [place] [address] 83985-922 0 01/31/2020 08:04:26 01/31/2020 15:01:24 Arthropathy 954015598 M12.9 cannot tolerate gabapentin , blurry eyesight Dysuria 13481073 R30.9 Arthritis 7856084 M19.90 Chronic low back pain 27 5700909 M54.5 Chronic th oracic back pain 5426734603 94878 M54.6 Fibromyalgia 660452843 M 79.7 Hyperlipidemia 71938302 E78.5 Insomnia 657319113 G47.0 0 Knee pain 21841404 M25.5 69 Partial te ar, knee, lateral collateral ligament 435989423 S83.422D Prolapsed cervical intervertebral disc 002974340 M50.20 Prolapsed lumbar intervertebral disc 211674393 M51.26 Restless legs 89409298 G 25.81 Rupture of anterior cruciate ligament 709892457 S83.512D Sleep apnea 33786383 G47 .30 Tear of me niscus of knee 959670102 S83.207D lateral and medial Vitamin D deficiency 347 74595 E55.9 [id number] Jose Ramon Luis MD [facility] (Adult Med) [address] [place] [address] 24397-423 0 02/05/2020 10:07:38 02/05/2020 10:52:33 Administration of influenza vaccine 86970012 Z23 [id number] Jose Ramon Luis MD [facility] (Adult Med) [address] [place] [address] [id number] 0 03/26/2020 15:39:41 03/26/2020 16:53:34 Osteoarthritis of hip 335034935 M16.9 Pain in right knee 94724 60003 88990 M25.561 Hyperlipidemia 53412114 E78.5 Insomnia 700307679 G47.0 0 Obese 819912067 E66.9 Restless legs 58370267 G 25.81 Sleep apnea 83312453 G47 .30 Vitamin D deficiency 347 16517 E55.9 Chronic low back pain 27 4745250 M54.5 Anxiety 98720833 F41.9 Fibromyalgia 409119536 M 79.7 Arthropathy 529133431 M1 2.9 cannot tolerate gabapentin , blurry eyesight Chronic th oracic back pain 0417311200 23799 M54.6 Knee pain 33784424 M25.5 69 Partial te ar, knee, lateral collateral ligament 266045549 S83.422D Prolapsed lumbar intervertebral disc 829102728 M51.26 Rupture of anterior cruciate ligament 177134770 S83.512D Subluxatio n of knee joint 092354750 S83.102D since 08/19/14 Tear of me niscus of knee 300981215 S83.207D lateral and medial [id number] MD [facility] Ste[facility] (Adult Med) [address] [place] [address] 40233-118 0 06/04/2020 08:51:54 06/04/2020 12:44:38 Arthropathy 792301710 M12.9 cannot tolerate gabapentin , blurry eyesight Vitamin D deficiency 347 67898 E55.9 Tear of me niscus of knee 448416403 S83.207D lateral and medial Subluxatio n of knee joint 538728884 S83.102D since 08/19/14 Sleep apnea 30406005 G47 .30 Restless legs 28908269 G 25.81 Prolapsed lumbar intervertebral disc 543069699 M51.26 Prolapsed cervical intervertebral disc 841144871 M50.20 Partial te ar, knee, lateral collateral ligament 354661770 S83.422D Osteoarthritis of hip 23 7282826 M16.9 Pain in right knee 74857 63050 59719 M25.561 Insomnia 032185783 G47.0 0 Hyperlipidemia 22015869 E78.5 Fibromyalgia 444916778 M 79.7 Chronic th oracic back pain 7621064933 25061 M54.6 Chronic low back pain 27 9038105 M54.5 [id number] Jose Ramon Luis MD [facility] (Adult Med) [address] [place] [address] 57814-232 0 07/30/2020 08:31:19 07/30/2020 12:45:48 Arthritis 1569255 M19.90 Anxiety 61566962 F41.9 Bilateral tendonitis of wrists 5917631418 0591897 M77.8 Chronic low back pain 27 0439714 M54.5 Chronic th oracic back pain 2962290175 65606 M54.6 Fibromyalgia 863400137 M 79.7 Hyperlipidemia 81588647 E78.5 Insomnia 789403256 G47.0 0 Osteoarthritis of hip 23 5292521 M16.9 Pain in right knee 61795 30640 48458 M25.561 Arthropathy 340262813 M1 2.9 cannot tolerate gabapentin , blurry eyesight Prolapsed lumbar intervertebral disc 505175699 M51.26 Rupture of anterior cruciate ligament 170675237 S83.512D Tear of me niscus of knee 651528221 S83.207D lateral and medial Vitamin D deficiency 347 06937 E55.9 [id number] Jose Ramon Luis MD [facility] (Adult Med) [address] [place] [address] 01939-221 0 10/16/2020 13:54:38 10/16/2020 16:07:26 Anxiety 43792966 F41.9 Arthritis 2204445 M19.90 Chronic low back pain 27 9537191 M54.5 Chronic th oracic back pain 2870737429 12520 M54.6 Fibromyalgia 964694471 M 79.7 Hyperlipidemia 76056130 E78.5 Insomnia 061772672 G47.0 0 Obese 268186729 E66.9 Osteoarthritis of hip 23 7662532 M16.9 Sleep apnea 30911931 G47 .30 Vitamin D deficiency 347 57520 E55.9 Arthropathy 326737615 M1 2.9 cannot tolerate gabapentin , blurry eyesight Restless legs 82450481 G 25.81 Prolapsed cervical intervertebral disc 418980051 M50.20 Prolapsed lumbar intervertebral disc 717516311 M51.26 Knee pain 87963937 M25.5 69 [id number] MD Emerson Steen (Adult Med) [address] [place] [address] 79499-456 0 04/08/2021 15:42:39 04/08/2021 17:27:52 Fibromyalgia 088508867 M79.7 Prolapsed lumbar intervertebral disc 949270805 M51.26 Arthropathy 564100416 M1 2.9 cannot tolerate gabapentin , blurry eyesight Pain in right knee 94116 10867 55490 M25.561 Hyperlipidemia 88011238 E78.5 Serum thyr oxine level outside reference range 749728775 R79.89 Vitamin D deficiency 347 85982 E55.9 Administra tion of influenza vaccine 35892606 Z23 Restless legs 04681726 G 25.81 Arthritis 5397342 M19.90 Chronic low back pain 27 5268374 M54.50 Bilateral tendonitis of wrists 5729813550 1535755 M77.8 Chronic th oracic back pain 7902567547 98850 M54.6 Insomnia 215118911 G47.0 0 Neck pain 70173968 M54.2 Osteoarthritis of hip 23 1169561 M16.9 Sleep apnea 98983791 G47 .30 Tear of me niscus of knee 803166611 S83.207D lateral and medial Subluxatio n of knee joint 396219612 S83.102D since 08/19/14 [id number] MD Emerson Steen (Adult Med) [address] [place] [address] 57420-704 0 05/31/2021 16:11:58 06/01/2021 11:06:59 Hyperlipidemia 02018475 E78.5 Arthropathy 324180476 M1 2.[address] Manrique is out of the office, to prevent interrupti on of therapy and withdrawal , I have refilled the Hydrocodon eILPMP reviewedUD S neededCDA 09/19/2018R enew Hydrocodon e Chronic low back pain 27 4211363 M54.50 Chronic th oracic back pain 7794711573 43754 M54.6 Fibromyalgia 338285977 M 79.7 Insomnia 424757331 G47.0 0 Neck pain 88222483 M54.2 Obese 112319629 E66.9 Osteoarthritis of hip 23 8718173 M16.9 Pain in right knee 76994 38818 19639 M25.561 Partial te ar, knee, lateral collateral ligament 472670882 S83.422D Prolapsed cervical intervertebral disc 818404823 M50.20 Prolapsed lumbar intervertebral disc 938663285 M51.26 Restless legs 40990095 G 25.81 Rupture of anterior cruciate ligament 949854963 S83.512D Sleep apnea 74969479 G47 .30 Tear of me niscus of knee 458352254 S83.207D lateral and medial Vitamin D deficiency 347 35848 E55.9 [id number] Jose Ramon Luis MD [facility] (Adult Med) [address] [place] [address] 79576-444 0 09/30/2021 16:11:51 10/01/2021 07:26:58 Fibromyalgia 703796914 M79.7 Prolapsed lumbar intervertebral disc 298363907 M51.26 Renewal of prescription 119452134 Z76.0 Osteoarthritis of hip 23 9588073 M16.9 Partial te ar, knee, lateral collateral ligament 828264995 S83.422D Arthritis 3777517 M19.90 Arthropathy 663657232 M1 2.[address] Manrique is out of the office, to prevent interrupti on of therapy and withdrawal , I have refilled the Hydrocodon eIMITCH reviewedUD S neededCDA 09/19/2018R enew Hydrocodon e Bilateral tendonitis of wrists 6856377321 2973045 M77.8 Chronic low back pain 27 4148553 M54.50 Chronic th oracic back pain 1391343754 06798 M54.6 Hyperlipidemia 20918618 E78.5 Insomnia 906692729 G47.0 0 Pain in right knee 81362 38936 90064 M25.561 Prolapsed cervical intervertebral disc 085377308 M50.20 Restless legs 38166987 G 25.81 Rupture of anterior cruciate ligament 548623313 S83.512D Sleep apnea 74479329 G47 .30 Tear of me niscus of knee 327697680 S83.207D lateral and medial Vitamin D deficiency 347 87600 E55.9 [id number] [facility] [address] [place] [address] 29615-102 0 12/02/2021 16:18:03 12/03/2021 16:39:26 Screening for malignant neoplasm of breast 945181894 Z12.39 Osteoarthritis of hip 23 9581915 M16.9 Partial te ar, knee, lateral collateral ligament 933671727 S83.422D Fibromyalgia 134902460 M 79.7 Arthritis 8230086 M19.90 Hyperlipidemia 64662767 E78.5 Prolapsed cervical intervertebral disc 413474066 M50.20 Prolapsed lumbar intervertebral disc 974498106 M51.26 Restless legs 85130774 G 25.81 Rupture of anterior cruciate ligament 638619645 S83.512D Sleep apnea 79525362 G47 .30 Vitamin D deficiency 347 84037 E55.9 [id number] Jose Ramon Luis MD [facility] (Adult Med) [address] [place] [address] 17810-369 0 02/03/2022 15:51:00 02/04/2022 16:31:02 Contact dermatitis 93590337 L25.9 left forearm Acute sinusitis 23423586 J01.90 Osteoarthritis of hip 23 7722793 M16.9 Fibromyalgia 673633280 M 79.7 [id number] MD [facility] Sylvester (Adult Med) [address] [place] [address] 57608-195 0 05/04/2022 14:46:15 05/05/2022 15:33:08 Fibromyalgia 850478597 M79.7 Hyperlipidemia 69754197 E78.5 Osteoarthritis of hip 23 4297461 M16.9 Chronic low back pain 27 4809446 M54.50 Pain in right knee 43143 81580 57642 M25.561 Medication monitoring 39 8065962 Z51.81 Morbid obesity 228241422 E66.01 [id number] MD Emerson Sylvester (Adult Med) [address] [place] [address] 83655-339 0 06/30/2022 14:43:53 07/04/2022 16:19:01 Hypercalcemia 39060390 E83.52 Morbid obesity 263294339 E66.01 Fibromyalgia 017328120 M 79.7 Osteoarthritis of hip 23 4615903 M16.9 Acquired d eformity of toe 23987919 M20.10 Bilateral shoulder joint pain 7648332029 6736296 M25.511 M25.512 Fatigue 34651987 R53.83 Chronic low back pain 27 4551701 M54.50 [id number] MD [facility] Cary (Adult Med) [address] [place] [address] 31865-442 0 07/06/2022 11:44:08 07/15/2022 16:43:23 D-dimer above reference range 576986289 R79.[address] angiogram and lower extremity dopplers stat. Proceed according to results. Dyspnea 316129352 R06.00 Episodic for years. Elevated d-dimer. Getting CT angiogram and dopplers today to investigat e for possible recurrent PEs. 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 Lasts about 5 days. .W/U to date non-reveal ing. Pt to present to ED if symptoms worsen. Refused referral for possible study participat ion Morbid obesity 307234480 E66.01 Hyperlipidemia 39634622 E78.5 Sleep apnea 63165405 G47 .30 [id number] MD Emerson Sylvester (Adult Med) [address] [place] [address] 47479-768 0 02/07/2023 15:49:18 02/16/2023 12:20:24 Chronic low back pain 899050170 M54.50 Advised avoidance of additional nsaid . Will increase hydrocodon e. Foreign zack dy in left ear 8450913435 9537449 T16.2XXD Active immunization 3387 9002 Z23 [id number] Jon Brito MD [facility] [address] [place] [address] 02/27/2023 14:27:27 03/14/2023 13:24:33 Foreign body in left ear 0901298836 9752147 T16.2XXA foreign body removed no damage to the ear or eardrum [id number] MD Emerson Sylvester (Adult Med) [address] [place] [address] 68995-283 0 04/10/2023 14:25:48 04/11/2023 11:16:18 Obesity 139276276 E66.9 Chronic th oracic back pain 2610418526 52680 M54.6 Hypercalcemia 81317082 E 83.52 Hyperlipidemia 21225501 E78.5 Vitamin D deficiency 347 38177 E55.9 Serum ferr itin above reference range 588367479 R77.8 [id number] Saw Camp MD [facility] [place] [facility] [address] [place] [address] 05/31/2023 15:18:35 06/14/2023 14:23:50 Preoperative cardiovascular examination 973731125 Z01.810 Electrocar diogram abnormal 294918666 R94.31 Pure hypercholesterolemia 259813600 E78.00 Muscle pain 01162041 M79 .10 [id number] Saw Camp MD [facility] [place] [facility] [address] [place] [address] 06/22/2023 14:12:31 06/23/2023 09:46:31 Preoperative cardiovascular examination 093129468 Z01.810 Electrocar diogram abnormal 979425232 R94.31 Pure hypercholesterolemia 861655240 E78.00 Muscle pain 99053523 M79 .10 [id number] MD Emerson Sylvester (Adult Med) [address] [place] [address] 67430-752 0 08/07/2023 16:05:31 08/08/2023 12:31:34 Obesity 672820346 E66.9 Chronic low back pain 27 3373863 M54.50 Advised avoidance of additional nsaid . Will increase hydrocodon e. [id number] Saw Camp MD [facility] [place] [facility] [address] [place] [address] 10/25/2023 09:21:07 10/27/2023 12:41:24 Preoperative cardiovascular examination 000897971 Z01.810 Atheroscle rosis of coronary artery without angina pectoris 5360436847 29633 I25.10 Electrocar diogram abnormal 463088049 R94.31 Pure hypercholesterolemia 298532191 E78.00 [id number] Saw Camp MD [facility] [place] [facility] [address] [place] [address] 01/25/2024 11:53:01 01/29/2024 09:39:46 Coronary arteriosclerosis in [place] artery 3619075468 107 I25.10 Pure hypercholesterolemia 684479141 E78.00 Atheroscle rosis of coronary artery without angina pectoris 4952033531 32353 I25.10 Electrocar diogram abnormal 015086820 R94.31 [id number] Nishant Guardado MD [facility] (Adult Med) [address] [place] [address] 59392-330 0 02/05/2024 16:09:54 02/06/2024 10:17:48 Hyperlipidemia 00445604 E78.5 Atheroscle rosis of coronary artery without angina pectoris 1848265626 10064 I25.10 Chronic low back pain 27 4792400 M54.50 Restless legs 17758454 G 25.81 Active immunization 3387 9002 Z23 [id number] Saw Camp MD [facility] [place] [facility] [address] [place] [address] 06/04/2024 11:53:21 06/06/2024 17:21:33 Morbid obesity 220297369 E66.01 Atheroscle rosis of coronary artery without angina pectoris 0836649485 03751 I25.10 Electrocar diogram abnormal 404626066 R94.31 Preoperati ve cardiovascular examination 712598860 Z01.810 Pure hypercholesterolemia 648308357 E78.00 [id number] MD Emerson Sylvester (Adult Med) [address] [place] [address] 04514-566 0 07/03/2024 10:48:31 07/04/2024 13:37:52 Chronic low back pain 987837710 M54.50 Discussed pain management regimen with pt Atheroscle rosis of coronary artery without angina pectoris 8526581160 51072 I25.10 Hypercalcemia 02407473 E 83.52 Hyperlipidemia 45630914 E78.5 Morbid obesity 919873144 E66.01 Fibromyalgia 517415694 M 79.7 [id number] Saw Camp MD [facility] [address] [place] [address] 08/13/2024 10:57:39 08/14/2024 17:22:48 Morbid obesity 905672468 E66.01 Electrocar diogram abnormal 929697032 R94.31 Coronary arteriosclerosis 94588388 I25.10 Preoperative state 75698 002 Z01.818 Pure hypercholesterolemia 889074722 E78.00 Long-term current use of drug therapy 492121914 Z79.02 [id number] Nishant Guardado MD [facility] (Adult Med) [address] [place] [address] 00386-771 0 09/24/2024 10:51:12 09/25/2024 11:18:57 Chronic low back pain 239165078 M54.50 Fibromyalgia 591961966 M 79.7 Restless legs 95880374 G 25.81 Insomnia 696901970 G47.0 0 Health Concerns Section Related Observation LastModified by Organization Detai ls LastModified Time None Recorded Concern Status LastModified by Organization Details LastModified Time None Recorded Advance Directives Directive N: Payers Insurance Date Sequence Insurance Name Policy Number Policy Tellez Covered Member ID Tellez Member ID Guarantor Name 09/22/2024 1 [employer] - [place] (MEDICARE REPLACEMENT/AD VANTAGE - HMO) [id number] Verenice Bishnu Kristen [id number] Verenice Peterson 06/04/2024 2 [place] Verenice Bishnu Kristen [id number] Verenice Peterson 06/04/2024 1 [facility] - DOS PRIOR TO 2020 (MEDICAID REPLACEMENT - HMO) Verenice Peterson [id number] Verenice Peterson 06/04/2024 1 [place] Verenice Peterson [id number] Verenice Peterson 06/04/2024 [facility]ice Peterson [facility] Verenice Peterson 06/04/2024 1 [facility] - DOS PRIOR TO 2020 (MEDICAID REPLACEMENT - HMO) Verenice Peterson [id number] Verenice Peterson 06/04/2024 1 [facility] - DOS ON OR AFTER 20 (MEDICAID REPLACEMENT - HMO) Verenice Peterson [id number] Verenice Peterson 06/04/2024 1 [place] [id number] Verenice Peterson [id number] Verenice Peterson Notes Date Note Type Note Provider Name and Address Organization Details Recorded Time 02/05/2024 text/html Here for f/u. Sh joanna recently got a good report from cardiology. She started taking OTC potassium one week ago because of recurrent muscle twitches. Nishant Guardado MD Attn: [address] [place], [address], [facility] 02/05/2024 17:43:40 06/04/2024 text/html Ms. Peterson is a 63 year old who returns for follow-up visit. She still has yet to get a left total knee arthroplasty done. She is scheduled for September 03 but is on a list if he has any cancellations to go sooner. She does on occasion walk with a cane as she feels sometimes like that left knee wants to give out on her but for the most part she is not requiring any walking assistance devices. She is unable to do cardio due to her knee. She is going to join lesion were all to start doing some exercises that she can tolerate with her knee issues. She does have muscle pains but she says this preceded the use of rosuvastatin in his not worse with increasing the rosuvastatin from 20 to 40 mg daily. She is compliant with her medications. She denies any side effects from her medications. She denies any chest pain, shortness of breath, dizziness, syncope, orthopnea, paroxysmal nocturnal dyspnea, palpitations or lower extremity edema. Saw Camp MD Attn: [address]ing[address] [facility], [place], [address], [place] [facility] 06/04/2024 13:46:31 07/03/2024 text/html Here for routine f/u. She is concerned about her pain management. Pt indicated her drug screen was abnormal Nishant Guardado MD Attn: Accounting[address] [facility], [place], [address], [place] [facility] 07/03/2024 11:49:02 08/13/2024 text/html Ms. Peterson is a 64 year old who returns for follow-up visit. She is tolerating increased dose of rosuvastatin from 20 mg to 40 mg daily which was increased time of her last visit due to suboptimal lipids. Her LDL is now at goal at 68 mg/dL. She had a right total knee arthroplasty in December of 2023 in his scheduled to undergo a left total knee arthroplasty on 09/03/2024 at [facility]. She did undergo a cardiac CTA on 07/26/2024 which showed less than 50% lad stenosis, less than 30% first diagonal stenosis, less than 25% left circumflex artery stenosis and less than 25% right coronary artery stenosis with a calcium score of 37. She is not doing regular exercise due to her any but she did cut her grass with a push mower yesterday and was able to do so without any chest pain or shortness of breath. She is compliant with her medications. She denies any side effects from her medications. She denies any chest pain, shortness of breath, dizziness, syncope, orthopnea, paroxysmal nocturnal dyspnea, palpitations or lower extremity edema. Saw Camp MD Attn: Accounting[address] [facility], [place], [address], [place] [facility] 08/13/2024 12:28:23 09/24/2024 text/html Here for routine f/u. Recent left TKA. Nishant Guardado MD Attn: [address] [facility], [place], [address], [place] [facility] 09/24/2024 11:47:46 OBGyn Episode No OBEpisode recorded.
--- OUTSIDE RECORDS SUMMARY | 2024-10-09 16:40 | XMS_ITS | Clinical Summary ---
Author Organization [facility] Building B Address [address] [place] [address] Care Team Providers Care Jail Guard Name Role Phone Nishant Wright MD Primary Care Provider Reginaldo Daley MD Unavailable [phone] Delio Freire OT Unavailable Unavailable Kathleen Olivarez Unavailable Allergies Active Allergy Reactions Criticality Noted Date [...] 07/29/2019 Verruca plantaris 07/29/2019 Cervical radiculopathy 04/06/2017 Encounters Date Type Department Care Team Description 09/23/2024 Telephone [facility] Orthopedics and Sports Medicine [address] [place] [address] [address] [place] [address] Jose Juan Reynolds MD 09/17/2024 1:00 PM CDT Telemedicine [facility] Orthopedics and Sports Medicine [address] [place] [address] [address] [place] [address] Kathleen Olivarez PA S/P total knee arthroplasty, left (Primary Dx); Orthopedic aftercare 09/17/2024 Telephone [facility] Orthopedics and Sports Medicine [address] [place] [address] [address], [place] [phone] Kathleen Olivarez PA 09/12/2024 [facility] Post Discharge Follow up phone call [facility] [address] [place] [phone] Romelia Iniguez 09/12/2024 [facility] Post Discharge Follow up phone call [facility] [address] [place] [address] Romelia Iniguez 09/03/2024 3:52 PM CDT - 09/04/2024 12:48 PM CDT Hospital Encounter [facility] [address] [place] [address] Jose Juan Reynolds MD S/P TKR (total knee replacement), right (Primary Dx); Primary osteoarthritis of left knee Discharge Disposition: Discharge to home or self care 09/03/2024 2:05 PM CDT - 09/03/2024 11:59 PM CDT Hospital Encounter [facility] [address] [place] [address] Discharge Disposition: Discharge to home or self care 09/03/2024 11:25 AM CDT - 09/03/2024 1:55 PM CDT Surgery [facility] Operating Room [address] [place] [address] Jose Juan Reynolds MD Left total knee arthroplasty, robotic 09/03/2024 11:16 AM CDT Anesthesia Event [facility] Operating Room [address] [place] [address] Christel Lr MD Alexander, Jeffrey Michael, DO 08/16/2024 Orders Only [facility] Orthopedics and Sports Medicine [address] [place] [address] [address] [place] [address] Jose Juan Reynolds MD Primary osteoarthritis of left knee (Primary Dx) 08/05/2024 10:10 AM CDT Lab [address] [address] Pre-op testing 08/05/2024 10:08 AM CDT - 08/05/2024 11:59 PM CDT Hospital Encounter [facility] [address] [place] [phone] Pre-op testing Discharge Disposition: Discharge to home or self care 08/05/2024 10:07 AM CDT - 08/05/2024 11:59 PM CDT Hospital Encounter [facility] Cardiology [address] [place] [phone] Pre-op testing Discharge Disposition: Discharge to home or self care 08/05/2024 Orders Only [facility] Orthopedics and Sports Medicine [address] [place] [phone] JoseJ uan Reynolds MD Pre-op testing (Primary Dx) from Last 3 Months Surgical History Surgery Date Site/Laterality Comments EXPLORATORY LAPAROTOMY JOINT REPLACEMENT 09/19/2023 Right Total Hip Replacement KNEE ARTHROPLASTY Right 12/2023 Medical History Medical History Date Comments Osteoarthritis Sleep apnea Motion sickness Fibromyalgia RLS (restless legs syndrome) CAD (coronary artery disease) Hypercholesterolemia CAD (coronary artery disease) Family History Medical History Relation Name Comments Alcohol abuse Other Arthritis Other Cancer Other Diabetes Other Hypertension Other Stroke Other Relation Name Status Comments Other Social History Tobacco Use Types Packs/Day Years [...] on file Legal 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 Gender Identity Not on file Sexual Orientation Not on file Obstetrics History Last Filed Vital Signs Vital Sign Reading [...] 09/04/2024 3:10 AM CDT Plan of Treatment Health Maintenance Due Date Last Done Comments Cervical Cancer Screening 1960 Colon Cancer Screening-Colonoscopy 1960 Depression Screening 1960 Hepatitis C Screening 1960 Osteoporosis Screening-Bone Density Scan 1959 DTaP/Tdap/Td Vaccine (1 - Tdap) 1970 Hepatitis B Screening 1977 Pneumococcal vaccine 65+ (1 of 1 - PCV) 2009 Zoster Vaccine (1 of 2) 2009 Breast Cancer Screening-Mammogram 01/13/2021 020, 04/23/2017 Covid-19 Vaccine (3 - 2023-2 5 season) 2023 09/29/2020, 09/22/2020 Well Visit 65+ 02/12/2024 Fall Risk Assessment 09/04/2025 09/04/2024, 08/08/2024, 12/08/2023, Additional history exists Influenza Vaccine Completed 02/05/2024, , 03/24/2022, Additional history exists Medical Devices Implanted Type Area Assistant Professor Of Geography Device Identifier Shelf Expiration Date Model / Serial / Lot [employer] [place] 52mm 36mm Hip Neutral Liner Acetabular Altrx Sterile Latex Free [id number] - [id number] Implanted:Qty: 1 on 09/19/2023 by Reginaldo Daley MD at [facility] Right: Hip [employer] 06/21/2028 [id number] / / [id number] [employer] [place] 52mm Sector Hip Shell Acetabular Gription Sterile Latex Free [id number] - [id number] Implanted:Qty: 1 on 09/19/2023 by Reginaldo Daley MD at [facility] Right: Hip [employer] 06/21/2033 [id number] / / [id number] [employer] [place] 6.5mm 25mm Acetabular Cancellous Screw Bone Sterile 1217-25-500 - [id number] Implanted:Qty: 1 on 09/19/2023 by Reginaldo Daley MD at [facility] Right: Hip [employer] 03/23/2033 1217-25-500 / / [id number] [employer] [place] 105mm Collar Hip 5 Standard Offset Stem Femoral 101--050 - [id number] Implanted:Qty: 1 on 09/19/2023 by Reginaldo Daley MD at [facility] Right: Hip [employer] 07/22/2032 1010-11-050 / / [id number] [employer] Articul/Nathan 36mm Cementless Hip +1.5mm 04/06 [place] Femoral Latex Free [id number] - [id number] Implanted:Qty: 1 on 09/19/2023 by Reginaldo Daley MD at [facility] Right: Hip [employer] 07/22/2028 [id number] / / [id number] [employer] Attune Cruciate Retain Cementless Knee Right 5 Component Femoral [id number] - [id number] Implanted:Qty: 1 on 12/26/2023 by Jose Juan Reynolds MD at [facility] Right: Knee [employer] [id number] 10/21/2033 [id number] / / [id number] [employer] Attune Fb Tib Base Sz 3 Por [id number] - [id number] Implanted:Qty: 1 on 12/26/2023 by Jose Juan Reynolds MD at [facility] Right: Knee [employer] [id number] 11/21/2033 [id number] / / [id number] [employer] Insert Tibial Knee Fixed Rm Posterior Stabilized Attune 5mm Size 5 Polyethylene [id number] - [id number] Implanted:Qty: 1 on 12/26/2023 by Jose Juan Reynolds MD at [facility] Right: Knee [employer] [id number] 12/22/2030 [id number] / / [id number] [employer] Attune Fb Tib Base Sz 4 Por [id number] - [id number] Implanted:Qty: 1 on 09/03/2024 by Jose Juan Reynolds MD at [facility] Left: Knee [employer] [id number] 07/22/2032 [id number] / / [id number] [employer] Insert Tibial Knee Fixed Lm Posterior Stabilized Attune 6mm Size 5 Polyethylene [id number] - [id number] Implanted:Qty: 1 on 09/03/2024 by Jose Juan Reynolds MD at [facility] Left: Knee [employer] [id number] 06/21/2032 [id number] / / [id number] [employer] Attune Cruciate Retain Cementless Knee Left 5 Narrow Component [id number] - [id number] Implanted:Qty: 1 on 09/03/2024 by Jose Juan Reynolds MD at [facility] Left: Knee [employer] 06/21/2034 [id number] / / Procedures Procedure Name Priority Date/Time [...] Jalil Lerner M.D. MF: SILVIA Report ID: [id number] Reading Location: [id number] Procedure Note Jalil Lerner MD - 09/04/2024 [...] Jalil Lerner M.D. MF: SILVIA Report ID: [id number] Reading Location: [id number] Constantino TALAMANTES IMG XR PROCEDURES Final Res ult * Surgical pathology (09/03/2024 2:13 PM CDT) Tissue (Bone Fragment(s),) 09/03/2024 12:23 PM CDT Narrative [facility] ([place]) - 09/05/2024 10:42 AM CDT EPIC results best viewed via link to PDF [facility] Department of Pathology [address] [place] [address] Note to Patients: This report may contain [...] Final Report Patient Name: VERENICE MONTGOMERY Address: [address] [place] [address] Gender: F : 1960 (Age: 64) Service: Surgery Location: [facility] Hospital #: [id number] Patient Type: [facility] OP in bed Taken: 09/03/2024 Received: 09/03/2024 [...] determined by the Surgical Pathology Department at [facility] as part of an ongoing quality assurance supervisor final program and in compliance with federally mandated [...] characteristics determined by the Surgical Pathology Department [facility]. It has not been cleared or approved by the U. S. Food and Drug Administration. Note for decalcified specimens: This assay has not been validated on decalcified tissues. Results should be interpreted with caution given the possibility of false negativity on decalcified specimens us Jose Juan Reynolds MD LAB PATHOLOGY ORDERABLES [facility] al Result Performing Organization Address City/State/[facility] Co de Phone Number PATHOLOGY [facility] [address] [place] [phone] * Spinal Block (09/03/2024 11:41 AM CDT) Narrative Belinda Hunt CRNA - 09/03/2024 11:41 AM CDT Belinda Hunt CRNA 09/03/2024 11:42 AM Spinal Block Patient location: OR End time: 09/03/2024 11:22 AM Reason for block: primary anesthetic Staff: Placed by: FINAL TOUCH UP PAINTER:Belinda Hunt CRNA Procedure prep: Preprocedure checklist: patient [...] aPTT 34 28 - 38 sec [facility] ([place] Comment: Interpretive Data Heparin therapeutic range: 66.0 - 100.0 seconds. Range based on correlation with therapeutic heparin activity range of 0.3 - 0.7 Units/mL. Current interpretive data was last revised on 2023. Blood 09/03/2024 9:37 AM CDT 09/03/2024 9:39 AM CDT Jose Juan Reynolds MD LAB BLOOD ORDERABLES Final R esult [facility] ([place]) 1 [facility] Department of Laboratories [place] [phone] * (ABNORMAL) Protime-INR (09/03/2024 9:37 AM CDT) PT 9.5(L) 9.7 - 13.0 sec [facility] ([place] INR 0.88(L) 0.90 - 1.20 [facility] ([place] Comment: Interpretive data Oral anticoagulant therapeutic ranges: Venous thromboembolism prophylaxis or treatment: 2.0-3.0 CARDIOLOGY Standard range: 2.0-3.0 High-intensity range: 2.5-3.5 Refer to indication-specific guidelines for appropriate target ranges for prosthetic heart valve replacement. Current interpretive data was last revised on 2019. Blood 09/03/2024 9:37 AM CDT 09/03/2024 9:39 AM CDT Jose Juan Reynolds MD LAB BLOOD ORDERABLES Final R esult [facility] [place] [facility] [place] [address] * XR Chest Pa Lateral 2 Views [...] Jermain Worthington M.D. BB: LETICIA Report ID: [id number] Reading Location: [id number] Procedure Note Jermain Worthington MD PhD - [...] 08/06/2024 1:27 PM - Electronically signed by Jermian Worthington M.D. BB: LETICIA Report ID: [id number] Reading Location: [id number] Jose Juan Reynolds MD IMG XR PROCEDURES Final Resu lt * ECG 12 lead (08/05/2024 10:38 AM CDT) 08/05/2024 10:4 2 AM CDT Narrative [facility] - 08/05/2024 12:18 PM CDT Vent Rate: 80 bpm RR Interval: 746 msec DE Interval: 169 msec QRS Duration: 94 msec QT Interval: 347 msec QTC Interval: 383 msec P-R-T Cow[place]: 46 - -24 - 45 degrees IMPRESSION: SINUS RHYTHM POSSIBLE ANTERIOR MYOCARDIAL INFARCTION , PROBABLY OLD [30 ms Q WAVE IN V3/V4, OR R < 0.2 mV IN V4] BORDERLINE ECG NO CHANGE FROM PREVIOUS TRACING NOTED Electronically Signed By: Dony Brewer MD Jose Juan Reynolds MD ECG ORDERABLES Final Result [facility] * eGFR (08/05/2024 10:23 AM CDT) eGFR [...] MD LAB BLOOD ORDERABLES Final R esult [facility] 1 [facility] [place] [address] * Differential, auto (08/05/2024 10:23 AM CDT) Neutrophil abs 4.32 1.50 - 6.50 K/cumm Imm gran abs 0.02 0.00 - 0.10 K/cumm [facility] Lymphocyte abs 2.34 0.80 - 3.30 K/cumm [facility] ([place] Monocyte abs 0.58 0.20 - 0.80 K/cumm [...] Lymphocyte pct 31.3 % [facility] ([place] Comment: Interpretive Data Percent cell count reference ranges are not reported, since discordance with absolute values may lead to misinterpretation of CBC data. Current Interpretive Data was last revised on 2017. Monocyte pct 7.8 % [facility] ([place] Comment: Interpretive Data Percent cell [...] revised on 2017. Basophil pct 0.4 % [facility] ([place] Comment: Interpretive Data Percent cell count reference ranges are not reported, since discordance with absolute values may lead to misinterpretation of CBC data. Current Interpretive Data was last revised on 2017. Blood 08/05/2024 10:2 3 AM CDT 08/05/2024 10:35 AM CDT us Jose Juan Reynolds MD LAB BLOOD ORDERABLES Final R esult [facility] ([place]) 1 [facility] [place] [address] * Urinalysis reflex to microscopic and culture Urine, clean voided (08/05/2024 10:23 AM CDT) Color, ur Yellow Yellow Clarity, ur Clear Clear [facility] ([place]) Specific gravity, ur 1.024 1.003 - 1.030 [facility] ([place] pH, urine 6.5 [facility] ([place] Comment: Interpretive Data U rine pH is affected by diet, medications, systemic acid-base disturbances, and renal tubular function. pH may affect urinary stone formation. For example, urine pH below 6.0 may help reduce the tendency for calcium phosphate stones and pH greater than 6.0 may reduce the tendency for uric acid stone formation. Source: [facility] Current Interpretive Data was last revised on 2017 Protein, ur ql Negative Negative [facility] Glucose, ur ql Negative Negative [facility] Ketones, ur Negative Negative [facility] ([place]) Bilirubin, ur Negative Negative [facility] [...] MICROBIOLOGY - GENERAL O RDERABLES Final Result [facility] ([place] 1 [facility] Department [place] [address] * (ABNORMAL) CBC with auto differential (08/05/2024 [...] Final R esult [facility] ([place] 1 [facility] [place] [address] * Comprehensive metabolic panel (08/05/2024 10:23 AM CDT) Sodium 141 135 - 145 mmol/L Potassium, pl 4.6 3.3 - 4.9 mmol/L [facility] Chloride 103 97 - 110 mmol/L [facility] CO2 26 22 - 32 mmol/L [facility]) Anion gap 12 2 - 15 mmol/L [facility] ([place] BUN 19 6 - 25 mg/dL [facility] Creatinine 0.72 0.60 - 1.10 mg/dL [facility] Glucose 103 70 - 199 mg/dL [facility] ([place] Comment: Interpretive Data Fasting glucose [...] Final R esult [facility] ([place] 1 [facility] [place] [address] from Last 3 Months Insurance [facility] MEDIC[facility] Advance Directives For more information, please contact: [phone] * Full Code (Latest Code Status on File) Date Activated Date Inactivated Comments 09/03/2024 3:53 PM 09/04/2024 4:48 PM * Full Code Date Activated Date Inactivated Comments 12/26/2023 3:20 PM 12/27/2023 6:09 PM * Full Code Date Activated Date Inactivated Comments 09/19/2023 12:21 PM 09/19/2023 8:24 PM Care Teams Jail Guard Relationship Specialty [place] [address] [place] [id number] PCP - General Gastroenterology 10/05/22 Reginaldo Daley MD [address] [facility] [address] [place] [address] Surgeon Orthopedic Surgery 09/19/23 Delio Freire OT Occupational Therapist Occupational Therapy 08/22/24 Kathleen Olivarez PA [address] [facility] [place] [address] Orthopedic Surgery 09/04/24
--- OUTSIDE RECORDS SUMMARY | 2024-10-09 16:41 | XMS_ITS | Clinical Summary ---
Author Organization [facility] Address Replaced by [facility] [place] [address] Care Team Providers Care Consumer Affairs Manager Name Role Phone Unavailable Primary Care Provider Unavailabl e Allergies Active Allergy Reactions Criticality Noted Date Comments Sulfa Antibiotics Rash Medium 04/06/2017 Medications hydrocodone-marleny taminophen 7.5-325 MG tablet Take 1 tablet by mouth every 6 (six) hours as needed for Pain. Active predniSONE 20 MG tablet Take 20 mg by mouth daily. Active pramipexole 0.25 MG tablet Take 0.25 mg by mouth after lunch. Active lovastatin 40 MG tablet Take 40 mg by mouth nightly at bedtime. Active trazodone 50 MG tablet Take 100 mg by mouth nightly at bedtime. Active pramipexole 0.25 MG tablet Take 0.5 mg by mouth nightly at bedtime. Active pregabalin 150 MG capsule Take 1 tablet by mouth 2 (two) times daily. Active baclofen 10 MG tablet Take 10 mg by mouth 3 (three) times daily. Active ibuprofen 800 MG tablet Take 800 mg by mouth 3 (three) times daily. Active B complex-C Cap capsule Take 1 capsule by mouth daily. Active Glucosamine Sulfate 1000 MG Cap Active potassium chloride CR 8 MEQ tablet Take 1 tablet by mouth 3 (three) times daily. Active vitamin B-12 100 MCG tablet Take 50 mcg by mouth daily. Active Lysine HCl 1000 MG Tab Active Vitamins A & D (VITAMIN D) Cap capsule Take 400 mg by mouth daily. Active Active Problems Problem Noted Date Diagnosed Date Cervical radiculopathy 04/06/2017 Family History Medical History Relation Comments Arthritis Brother Hypertension Brother Diabetes Father Heart Disease Father Cancer Mother Arthritis Sister Hypertension Sister Relation Status Comments Brother Father Mother Sister Social History Tobacco Use Types Packs/Day Years Used Date Smoking Tobacco: Former Cigarettes Q uit: 04/06/2011 Smokeless Tobacco: Never Alcohol Use Standard Drinks/Week Comments Yes 0 (1 standard drink = 0.6 oz pur e alcohol) OCCASIONAL Comments No Sex and Gender Information Value Date Recorded Sex Assigned at Not on file Legal Sex Female 8:32 PM CDT Gender Identity Not on file Sexual Orientation Not on file Occupation Industry Job Start Date Job End Date 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, 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 [employer] Not on file Not on file Not on file Last Filed Vital Signs Vital Sign Reading Time Taken Comments Blood Pressure 142/95 07/04/2017 1:56 PM CDT Pulse 81 07/04/2017 1:56 PM CDT Temperature 36.5 C (97.7 F) 07/04/2017 1:01 PM CDT Respiratory Rate 20 07/04/2017 1:56 PM CDT Oxygen Saturation 99% 07/04/2017 1:56 PM CDT Inhaled Oxygen Concentration - - Weight 89.4 kg (197 lb 3.2 oz) 07/04/2017 1:01 P M CDT Height 152.4 cm (5') 07/04/2017 1:01 PM CDT Body Mass Index 38.51 07/04/2017 1:01 PM CDT Plan of Treatment Health Maintenance Due Date Last Done Comments Colorectal Cancer Screening Colonoscopy (10 Years) 1959 Hepatitis C 1977 DTaP, Tdap and Td Vaccines ( 1 - Tdap) 1978 Mammogram Screening 1999 Pneumococcal Vaccine: 50+ Ye ars (1 of 1 - PCV) 2009 Zoster Vaccines (1 of 2) 2009 COVID-19 Vaccine ( - 2023-2 5 season) 2023 Dexa Scan (General) 02/12/2024 RSV Immunization or 60+ Years (1 - 1-dose 75+ series) 2034 Meningococcal B Vaccine Aged Out No l onger eligible based on patient's age to complete this topic Meningococcal Vaccine Aged Out No [place] forest eligible based on patient's age to complete this topic RSV Immunizations Under 20 Months Aged Out No longer eligible based on patient's age to complete this topic
== END 2024-10-09 14:43 | disposition home or self-care (01) ==
LOC: ANHIMG 14:44
PROVIDERS: PCP Internal Medicine Gastroenterology; Visit Provider Internal Medicine Gastroenterology
DX: Z12.31 Encounter for screening mammogram for malignant neoplasm of breast (principal)
CPT/HCPCS: 77063; 77067

== ENCOUNTER 2025-03-10 12:16 | Outpatient (CLI) | payer MEDICARE, SELFPAY ==
--- NOTE | ~2025-03-10 | XR_ITS ---
XR lumbar spine 2-3V Indication: L Comparison: None Findings: Grade 1 anterolisthesis of L4 on L5, grade 1 retrolisthesis of L2 on L3 and L3 on L4, no acute fracture is identified. Moderate to severe loss of disc height throughout. Soft tissues unremarkable Impression: No acute abnormality. Reviewed, dictated and finalized at location P. LAYING FITTER Impression: No acute abnormality.
--- NOTE | ~2025-03-10 | XR_ITS ---
XR_CERV2-3V_CR Indication: Other chronic pain; stiffness of joint Comparison: None Findings: Grade 1 anterolisthesis of C3 on C4, no fracture is identified. Moderate to severe loss of disc height throughout. Soft tissues unremarkable Impression: No acute abnormality. Reviewed, dictated and finalized at location P. E WORKER HELPER Impression: No acute abnormality.
--- NOTE | ~2025-03-10 | XR_ITS ---
EXAMINATION: XR sacroiliac joints min 3V, 03/10/2025 12:50 RURAL ROUTE MAIL CARRIER HISTORY: Other chronic pain; stiffness of joint COMPARISON: No comparisons available. Findings: No acute fracture or malalignment. Sclerosis of the sacroiliac joints, and a bridging osteophyte formation or erosions identified Soft tissues unremarkable. Impression: No acute fracture or malalignment. Reviewed, dictated and finalized at location P. L ROUTE MAIL CARRIER Impression: No acute fracture or malalignment.
--- NOTE | ~2025-03-10 | XR_ITS ---
EXAMINATION: XR hand LT min 3V, 03/10/2025 12:50 PROFILE STITCHING MACHINE OPERATOR HISTORY: Other chronic pain; stiffness of joint COMPARISON: No comparisons available. Findings: No acute fracture or malalignment. Severe degenerative changes of the first metacarpal carpal joint with cystic change and erosions. Soft tissues unremarkable. Impression: No acute fracture or malalignment. Reviewed, dictated and finalized at location P. ILE STITCHING MACHINE OPERATOR Impression: No acute fracture or malalignment.
--- NOTE | ~2025-03-10 | XR_ITS ---
EXAMINATION: XR hand RT min 3V, 03/10/2025 12:50 ASSISTANT PRODUCE MANAGER HISTORY: Other chronic pain; stiffness of joint COMPARISON: No comparisons available. Findings: No acute fracture or malalignment. Moderate to severe degenerative changes of the distal interphalangeal joints of the first metacarpal carpal joint, the findings of focused marked involving the distal first interphalangeal joint. Soft tissues unremarkable. Impression: No acute fracture or malalignment. Reviewed, dictated and finalized at location P. STANT PRODUCE MANAGER Impression: No acute fracture or malalignment.
== END 2025-03-10 12:17 | disposition home or self-care (01) ==
PROVIDERS: PCP Emergency Medicine; Visit Provider Emergency Medicine
DX: M21.949 Unspecified acquired deformity of hand, unspecified hand (principal); M25.69 Stiffness of other specified joint, not elsewhere classified; M54.2 Cervicalgia
CPT/HCPCS: 72040; 72100; 72202; 73130

== ENCOUNTER 2025-04-08 09:59 | Outpatient (CLI) | payer MEDICARE, SELFPAY ==
--- NOTE | 2025-04-08 10:20 | NEURO_ITS ---
Impression: # Complains of neck/shoulder pain. ? # No Carpal Tunnel Syndrome. ? # No Ulnar Neuropathy. ? # Normal Needle/ EMG exam of right upper extremity including Supraspinatus, Infraspinatus, Deltoid, Triceps, and Biceps. ? # Clinical correlation recommended. ? Nerve Conduction Studies ?Stim Site NR Peak (ms) P-T Amp (?V) Site1 Site2 Delta-P (ms) Dist (cm) Siva (m/s) Right Median Anti Sensory (2-3nd Digit) Wrist ? 3.4 21.7 Wrist 2-3nd Digit 3.4 14.0 41 Wrist ? 3.3 18.9 Wrist 2-3nd Digit 3.4 14.0 41 Right Radial Anti Sensory (Base 1st Digit) Wrist ? 1.9 17.4 Wrist Base 1st Digit 1.9 0.0 Right Ulnar Anti Sensory (5th Digit) Wrist ? 2.1 27.4 Wrist 5th Digit 2.1 14.0 67 ?Stim Site NR Onset (ms) O-P Amp (mV) Site1 Site2 Delta-0 (ms) Dist (cm) Siva (m/s) Right Median Motor (Abd Poll Brev) Wrist ? 3.4 2.9 Elbow Wrist 4.7 28.0 60 Elbow ? 8.1 2.0 Right Ulnar Motor (Abd Dig Minimi) Wrist ? 2.7 2.6 A Elbow Wrist 4.6 27.0 59 A Elbow ? 7.3 2.5 B Elbow Wrist 3.7 21.0 57 B Elbow ? 6.4 3.2 F Wave Studies ?NR F-Lat (ms) L-R F-Lat (ms) Right Median (Mrkrs) (Abd Poll Brev) ? 28.36 Right Ulnar (Mrkrs) (Abd Dig Min) ? 28.75 Electromyography ?Side Muscle Nerve Root Ins Act Fibs Amp Dur Recrt Comment Right 1stDorInt Ulnar C8-T1 Nml Nml Nml Nml Nml Right Ext Indicis Radial (Post Int) C7-8 Nml Nml Nml Nml Nml Right Ext Digitorum Radial (Post Int) C7-8 Nml Nml Nml Nml Nml Right BrachioRad Radial C5-6 Nml Nml Nml Nml Nml Right PronatorTeres Median C6-7 Nml Nml Nml Nml Nml Right Abd Poll Brev Median C8-T1 Nml Nml Nml Nml Nml Right ABD Dig Min Ulnar C8-T1 Nml Nml Nml Nml Nml Right FlexPolLong Median (Ant Int) C7-8 Nml Nml Nml Nml Nml Right Abd Poll Long Radial (Post Int) C7-8 Nml Nml Nml Nml Nml Right Biceps Musculocut C5-6 Nml Nml Nml Nml Nml Right Triceps Radial C6-7-8 Nml Nml Nml Nml Nml Right Deltoid Axillary C5-6 Nml Nml Nml Nml Nml Right Supraspinatus SupraScap C5-6 Nml Nml Nml Nml Nml Right Infraspinatus SupraScap C5-6 Nml Nml Nml Nml Nml
--- OUTSIDE RECORDS SUMMARY | 2025-04-08 11:36 | XMS_ITS | Clinical Summary ---
Author Organization [facility] [email or web address] Address [address] [place] [address] Care Team Providers Care Moisture Conditioner Operator Name Role Phone Abby Bernardo MD Primary Care Provider [phone] Source Comments [facility],non-owned Affiliates and Associated Physician Practices is amultiple site organization consisting of ambulatory clinics and hospital sitesin [place], [place], [place] and [place]. This disclosure is being madepursuant to the Care Everywhere program and may not contain all information available regarding this patient. Last updated 18.[facility] [email or web address] Allergies Active Allergy Reactions Criticality Noted Date Comments Sulfa Antibiotics Rash Medium 04/06/2017 Medications * Be aware that medications may not be up to date on this document. Alwaysverify current medications with the patient. ascorbic acid (Vitamin C) 500 MG tablet Take 1 (one) tablet by mouth 2 times daily 5 Active aspirin (Aspirin) 81 MG chew tablet Take 1 (one) tablet by mouth 2 times daily 5 Active baclofen (Lioresal) 10 MG tablet Take 1 (one) tablet by mouth 5 Active diclofenac sodium EC (Voltaren) 75 MG tablet Take 1 (one) tablet by mouth 2 times daily 5 Active rosuvastatin (Crestor) 40 MG tablet Take 1 (one) tablet by mouth once daily 5 Active magnesium 30 MG tablet Take 1 (one) tablet by mouth once daily Active vitamin D3 (Cholecalcifero l) 10 MCG (400 UNIT) tablet Take 1 (one) tablet by mouth once daily Active B Tmirkdu-J-Masbh Acid (vitamin B complex with C) Take by mouth once daily Active potassium chloride ER (Klor-Con M) 10 MEQ tablet Take 1 (one) tablet by mouth once daily Active Multiple Vitamins-Minera ls (Hair Skin and Nails Formula) TABS Active senna (Senokot) 8.6 MG tablet Take by mouth once daily Active ferrous sulfate 325 (65 FE) MG tablet Take 1 (one) tablet by mouth once daily Active ALOE VERA JUICE PO Active traZODone (Desyrel) 50 MG tablet Take 1 (one) tablet by mouth at bedtime Active pramipexole (Mirapex) 0.25 MG tablet Take 1 (one) tablet by mouth 3 times daily Active DULoxetine (Cymbalta) 60 MG capsule TAKE 1 CAPSULE BY MOUTH TWICE A DAY FOR 30 DAYS 04/01/20 Discontinu ed(List Clean-Up) gabapentin (Neurontin) 600 MG tablet Take 1 (one) tablet by mouth 3 times daily 04/01/20 Discontinu ed(List Clean-Up) Encounters Date Type Department Care Team Description 04/01/2025 10:17 AM LINING FINISHER - 04/01/2025 11:59 PM [facility] Hospital Encounter [facility] [address] [place] [address] Serene Brown MD Discharge Disposition: Home or Self Care 04/01/2025 10:07 AM LINING FINISHER - 04/01/2025 10:16 AM [facility] Hospital Encounter [facility] DIAGNOSTIC RAD OP [address] [place] [address] Serene Brown MD Discharge Disposition: Home or Self Care 04/01/2025 8:30 AM [facility] Office Visit [facility] - Rheumatology [address] [facility] [place] [address] Serene Brown MD Gomez Escalona, Reynaldo A, MD Polyarthralgia (Primary Dx); Osteoarthritis of multiple joints, unspecified osteoarthritis type 04/01/2025 Travel 03/21/2025 Travel from Last 3 Months Social History Tobacco Use Types Packs/Day Years Used Date Smoking Tobacco: Former Cigarettes Smokeless Tobacco: Never Tobacco Cessation:Counseling Given: Not Answered Alcohol Use Standard Drinks/Week Comments Never 0 (1 standard drink = 0.6 oz pur e alcohol) PHQ-2 Answer Date Recorded Patient Health Questionnaire-2 Score 0 04/01/2025 Comments No Sex and Gender Information Value Date Recorded Sex Assigned at Not on file Legal Sex Female 5:32 PM LINING FINISHER Gender Identity Not on file Sexual Orientation Not on file Last Filed Vital Signs Vital Sign Reading Time Taken Comments Blood Pressure 136/87 04/01/2025 8:29 AM LINING FINISHER Pulse 67 04/01/2025 8:29 AM LINING FINISHER Temperature 36.2 C (97.1 F) 04/01/2025 8:29 AM LINING FINISHER Respiratory Rate - - Oxygen Saturation 96% 04/01/2025 8:29 AM LINING FINISHER Inhaled Oxygen Concentration - - Weight 78.9 kg (174 lb) 04/01/2025 8:29 AM LINING FINISHER Height 149.9 cm (4' 11) 04/01/2025 8:29 AM LINING FINISHER Body Mass Index 35.14 04/01/2025 8:29 AM LINING FINISHER Plan of Treatment Health Maintenance Due Date Last Done Comments BONE DENSITY TESTING 1959 COLOGUARD (AGES 45-75) - COL ON CA SCREENING 1959 COLON MONITORING 1959 COLONOSCOPY - COLON CA SCREENING 1959 CT COLONOGRAPHY - COLON CA SCREENING 1959 Colorectal Cancer Screening 1959 FIT - COLON CA SCREENING 1959 FLEX SIG - COLON CA SCREENING 1959 MAMMOGRAM 1959 HEPATITIS C SCREENING 02/06/1977 DTAP/TDAP/TD VACCINES (1 - Tdap) 1978 PNEUMOCOCCAL VACCINE 50+ (1 of 1 - PCV) 2009 ZOSTER VACCINE (1 of 2) 2009 MEDICARE AWV CALENDAR YEAR 2024 COVID-19 VACCINE (1 - 2024-2 6 season) 2024 INFLUENZA VACCINE (#1) 2024 SCREENING FOR DIABETES 04/01/2025 Respiratory Syncytial Virus (RSV) Vaccine Pt: or over 60 yrs (1 - 1-dose 75+ series) 2034 DEPRESSION SCREENING Completed 04/01/2025 HEPATITIS B VACCINE Aged Out No longe r eligible based on patient's age to complete this topic HIB VACCINE Aged Out No longer eligi ble based on patient's age to complete this topic HPV VACCINE Aged Out No longer eligi ble based on patient's age to complete this topic MENINGOCOCCAL (Group B) VACC INE SHARED DECISION-MAKING Aged Out No longer eligibl e based on patient's age to complete this topic MENINGOCOCCAL GROUPS A/C/Y/W VACCINE Aged Out No longer eligible b ased on patient's age to complete this topic Procedures Procedure Name Priority Date/Time Associated Diagnosis Comments ERYTHROCYTE SEDIMENTATION RATE Routine 04/01/2025 10:55 AM LINING FINISHER Polyarthralgia Osteoarthritis of multiple joints, unspecified osteoarthritis type C-REACTIVE PROTEIN Routine 04/01/2025 10 :55 AM LINING FINISHER Polyarthralgia Osteoarthritis of multiple joints, unspecified osteoarthritis type XR LUMBAR SPINE 2 OR 3VW Routine 04/01/2025 10:38 AM LINING FINISHER Polyarthralgia Osteoarthritis of multiple joints, unspecified osteoarthritis type XR SHOULDER LEFT 2VW OR MORE Routine 04/01/2025 10:38 AM LINING FINISHER Osteoarthritis of multiple joints, unspecified osteoarthritis type XR SHOULDER RIGHT 2VW OR MORE Routine 04/01/2025 10:38 AM LINING FINISHER Osteoarthritis of multiple joints, unspecified osteoarthritis type XR SI JOINTS 3VW OR MORE Routine 04/01/2025 10:38 AM LINING FINISHER Polyarthralgia Osteoarthritis of multiple joints, unspecified osteoarthritis type XR HAND RIGHT 3VW OR MORE Routine 04/01/2025 10:38 AM LINING FINISHER Osteoarthritis of multiple joints, unspecified osteoarthritis type XR HAND LEFT 3VW OR MORE Routine 04/01/2025 10:38 AM LINING FINISHER Osteoarthritis of multiple joints, unspecified osteoarthritis type XR FOOT RIGHT 3VW OR MORE Routine 04/01/2025 10:38 AM LINING FINISHER Osteoarthritis of multiple joints, unspecified osteoarthritis type XR FOOT LEFT 3VW OR MORE Routine 04/01/2025 10:38 AM LINING FINISHER Osteoarthritis of multiple joints, unspecified osteoarthritis type from Last 3 Months Results * C-REACTIVE PROTEIN (04/01/2025 10:55 AM LINING FINISHER) C-Reactive Protein <0.5 <=0.5 mg/dL 04/01/2025 12:23 PM LINING FINISHER [facility] Blood BLOOD SPECIMEN / Unknown Lab Venipuncture / Unknown 04/01/2025 10:55 AM LINING FINISHER 04/01/2025 11:07 AM LINING FINISHER Serene Brown MD LAB - CHEMISTRY ORDERABLES Fi nal Result Performing Organization Address City/[facility]/ZIP Co de Phone Number [address] [address], [facility] [phone] * ERYTHROCYTE SEDIMENTATION RATE (04/01/2025 10:55 AM LINING FINISHER) Pathologist [facility] Erythrocyte Sedimentation Rate Westergren 11 0 - 30 MM/HR 04/01/2025 11:33 AM LINING FINISHER [facility] Blood BLOOD SPECIMEN / Unknown Lab Venipuncture / Unknown 04/01/2025 10:55 AM LINING FINISHER 04/01/2025 11:07 AM LINING FINISHER Serene Brown MD LAB - HEMATOLOGY ORDERABLES F inal Result Performing Organization Address City/[facility]/ZIP Co de Phone Number [address] [address], [place] [phone] * XR Foot Right 3Vw or More (04/01/2025 10:38 AM LINING FINISHER) Anatomical Region Laterality Modality Ankle / Foot Digital Radiogra phy 04/01/2025 11:0 1 AM LINING FINISHER Impressions 04/01/2025 11:07 AM LINING FINISHER IMPRESSION: 1.Right hand: Moderate osteoarthritis. 2.Left hand: Osteoarthritis, greatest at the first carpometacarpal joint where it is moderate to severe. 3.Right shoulder: Mild osteoarthritis. 4.Left shoulder: Moderate osteoarthritis. 5.Sacroiliac joints: Mild osteoarthritis. 6.Right foot: Hallux valgus and mild first metatarsophalangeal joint osteoarthritis. 7.Left foot: Mild first metatarsophalangeal osteoarthritis. > Interpreting Provider: Oj Nettles MD on 04/01/2025 11:07 AM Narrative 04/01/2025 11:07 AM LINING FINISHER PROCEDURE: XR SHOULDER RIGHT 2VW OR MORE, XR SHOULDER LEFT 2VW OR MORE, XR SI JOINTS 3VW OR MORE, XR HAND RIGHT 3VW OR MORE, XR HAND LEFT 3VW OR MORE, XR FOOT RIGHT 3VW OR MORE, XR FOOT LEFT 3VW OR MORE DATE/TIME OF EXAM: 04/01/2025 10:38 AM CLINICAL INFORMATION: None relevant/not provided if blank. Indication: M15.9: Osteoarthritis of multiple joints, unspecified osteoarthritis type Additional History: COMPARISON: None. FINDINGS: Right hand: No fracture or dislocation is present. There is osteoarthritis of multiple joints, greatest at the first carpometacarpal, thumb interphalangeal, and second and third digit distal interphalangeal where it is moderate. There is mild involvement at several additional joints. There are no erosions. The bones are mildly osteopenic. There there is mild soft tissue swelling around some of the arthritic joints. Left hand: No fracture or dislocation is present. There is osteoarthritis of multiple joints, greatest at the first carpometacarpal joint where it is moderate to severe with subluxation. There is mild involvement of several other joints. There are no erosions. The bones are mildly osteopenic. There is minimal soft tissue swelling adjacent to some of the arthritic joints. Right shoulder: No fracture or dislocation is present. There is mild acromioclavicular osteoarthritis. The glenohumeral joint space is normal with small osteophytes inferiorly. There are no erosions. A calcified right hilar lymph node is visible. Left shoulder: No fracture or dislocation is present. There is moderate acromioclavicular and glenohumeral osteoarthritis. There are several lucencies in the humeral head at the greater tuberosity likely representing degenerative cysts. No definite erosions are seen. Sacroiliac joints: There is mild sclerosis to moderate sclerosis bilaterally with small osteophytes are visible in the left likely representing osteoarthritis. There is no erosion, widening, or ankylosis of either joint. Right hip arthroplasty is noted. There are multiple pelvic enthesophytes. Right foot: No fracture or dislocation is present. There is hallux valgus with hypertrophy of the first metatarsal head, adjacent soft tissue swelling, and mild osteoarthritis at the first metatarsophalangeal joint. The other joint spaces are normal. There are small posterior and moderate plantar calcaneal spurs. There are no erosions. Left foot: No fracture or dislocation is present. There is mild osteoarthritis at the first metatarsophalangeal joint. There are no erosions. There are small posterior and moderate plantar calcaneal spurs. There are small osteophytes at the tibiotalar joint. Procedure Note Oj Nettles MD - 04/01/2025 PROCEDURE: XR SHOULDER RIGHT 2VW OR MORE, XR SHOULDER LEFT 2VW OR MORE,XR SI JOINTS 3VW OR MORE, XR HAND RIGHT 3VW OR MORE, XR HAND LEFT 3VW ORMORE, XR FOOT RIGHT 3VW OR MORE, XR FOOT LEFT 3VW OR MORE DATE/TIME OF EXAM: 04/01/2025 10:38 AM CLINICAL INFORMATION: None relevant/not provided if blank. Indication: M15.9: Osteoarthritis of multiple joints, unspecified osteoarthritis type Additional History: COMPARISON: None. FINDINGS: Right hand: No fracture or dislocation is present. There is osteoarthritis ofmultiple joints, greatest at the first carpometacarpal, thumb interphalangeal,and second and third digit distal interphalangeal where it is moderate.There is mild involvement at several additional joints. There are no erosions. The bones are mildly osteopenic. There there is mild soft tissueswelling around some of the arthritic joints. Left hand: No fracture or dislocation is present. There is osteoarthritis ofmultiple joints, greatest at the first carpometacarpal joint where it is moderateto severe with subluxation. There is mild involvement of several otherjoints. There are no erosions. The bones are mildly osteopenic. There is minimal soft tissue swelling adjacent to some of the arthritic joints. Right shoulder: No fracture or dislocation is present. There is mild acromioclavicular osteoarthritis. The glenohumeral joint space is normal with small osteophytes inferiorly. There are no erosions. A calcified right hilar lymph node is visible. Left shoulder: No fracture or dislocation is present. There is moderateacromioclavicular and glenohumeral osteoarthritis. There are several lucencies in thehumeral head at the greater tuberosity likely representing degenerative cysts.No definite erosions are seen. Sacroiliac joints: There is mild sclerosis to moderate sclerosis bilaterally with small osteophytes are visible in the left likely representing osteoarthritis. There is no erosion, widening, or ankylosis of either joint. Right hip arthroplasty is noted. There are multiple pelvic enthesophytes. Right foot: No fracture or dislocation is present. There is hallux valgus with hypertrophy of the first metatarsal head, adjacent soft tissue swelling, and mild osteoarthritis at the first metatarsophalangeal joint. Theother joint spaces are normal. There are small posterior and moderate plantar calcaneal spurs. There are no erosions. Left foot: No fracture or dislocation is present. There is mild osteoarthritis atthe first metatarsophalangeal joint. There are no erosions. There are small posterior and moderate plantar calcaneal spurs. There are smallosteophytes at the tibiotalar joint. IMPRESSION: 1.Right hand: Moderate osteoarthritis. 2.Left hand: Osteoarthritis, greatest at the first carpometacarpal joint where it is moderate to severe. 3.Right shoulder: Mild osteoarthritis. 4.Left shoulder: Moderate osteoarthritis. 5.Sacroiliac joints: Mild osteoarthritis. 6.Right foot: Hallux valgus and mild first metatarsophalangeal joint osteoarthritis. 7.Left foot: Mild first metatarsophalangeal osteoarthritis. > Interpreting Provider: Oj Nettles MD on 04/01/2025 11:07 AM Serene Brown MD DIAGNOSTIC IMAGING ORDERABLES Final Result * XR Foot Left 3Vw or More (04/01/2025 10:38 AM LINING FINISHER) Anatomical Region Laterality Modality Ankle / Foot Digital Radiogra phy 04/01/2025 11:0 1 AM LINING FINISHER Impressions 04/01/2025 11:07 AM LINING FINISHER IMPRESSION: 1.Right hand: Moderate osteoarthritis. 2.Left hand: Osteoarthritis, greatest at the first carpometacarpal joint where it is moderate to severe. 3.Right shoulder: Mild osteoarthritis. 4.Left shoulder: Moderate osteoarthritis. 5.Sacroiliac joints: Mild osteoarthritis. 6.Right foot: Hallux valgus and mild first metatarsophalangeal joint osteoarthritis. 7.Left foot: Mild first metatarsophalangeal osteoarthritis. > Interpreting Provider: Oj Nettles MD on 04/01/2025 11:07 AM Narrative 04/01/2025 11:07 AM LINING FINISHER PROCEDURE: XR SHOULDER RIGHT 2VW OR MORE, XR SHOULDER LEFT 2VW OR MORE, XR SI JOINTS 3VW OR MORE, XR HAND RIGHT 3VW OR MORE, XR HAND LEFT 3VW OR MORE, XR FOOT RIGHT 3VW OR MORE, XR FOOT LEFT 3VW OR MORE DATE/TIME OF EXAM: 04/01/2025 10:38 AM CLINICAL INFORMATION: None relevant/not provided if blank. Indication: M15.9: Osteoarthritis of multiple joints, unspecified osteoarthritis type Additional History: COMPARISON: None. FINDINGS: Right hand: No fracture or dislocation is present. There is osteoarthritis of multiple joints, greatest at the first carpometacarpal, thumb interphalangeal, and second and third digit distal interphalangeal where it is moderate. There is mild involvement at several additional joints. There are no erosions. The bones are mildly osteopenic. There there is mild soft tissue swelling around some of the arthritic joints. Left hand: No fracture or dislocation is present. There is osteoarthritis of multiple joints, greatest at the first carpometacarpal joint where it is moderate to severe with subluxation. There is mild involvement of several other joints. There are no erosions. The bones are mildly osteopenic. There is minimal soft tissue swelling adjacent to some of the arthritic joints. Right shoulder: No fracture or dislocation is present. There is mild acromioclavicular osteoarthritis. The glenohumeral joint space is normal with small osteophytes inferiorly. There are no erosions. A calcified right hilar lymph node is visible. Left shoulder: No fracture or dislocation is present. There is moderate acromioclavicular and glenohumeral osteoarthritis. There are several lucencies in the humeral head at the greater tuberosity likely representing degenerative cysts. No definite erosions are seen. Sacroiliac joints: There is mild sclerosis to moderate sclerosis bilaterally with small osteophytes are visible in the left likely representing osteoarthritis. There is no erosion, widening, or ankylosis of either joint. Right hip arthroplasty is noted. There are multiple pelvic enthesophytes. Right foot: No fracture or dislocation is present. There is hallux valgus with hypertrophy of the first metatarsal head, adjacent soft tissue swelling, and mild osteoarthritis at the first metatarsophalangeal joint. The other joint spaces are normal. There are small posterior and moderate plantar calcaneal spurs. There are no erosions. Left foot: No fracture or dislocation is present. There is mild osteoarthritis at the first metatarsophalangeal joint. There are no erosions. There are small posterior and moderate plantar calcaneal spurs. There are small osteophytes at the tibiotalar joint. Procedure Note Oj Nettles MD - 04/01/2025 PROCEDURE: XR SHOULDER RIGHT 2VW OR MORE, XR SHOULDER LEFT 2VW OR MORE,XR SI JOINTS 3VW OR MORE, XR HAND RIGHT 3VW OR MORE, XR HAND LEFT 3VW ORMORE, XR FOOT RIGHT 3VW OR MORE, XR FOOT LEFT 3VW OR MORE DATE/TIME OF EXAM: 04/01/2025 10:38 AM CLINICAL INFORMATION: None relevant/not provided if blank. Indication: M15.9: Osteoarthritis of multiple joints, unspecified osteoarthritis type Additional History: COMPARISON: None. FINDINGS: Right hand: No fracture or dislocation is present. There is osteoarthritis ofmultiple joints, greatest at the first carpometacarpal, thumb interphalangeal,and second and third digit distal interphalangeal where it is moderate.There is mild involvement at several additional joints. There are no erosions. The bones are mildly osteopenic. There there is mild soft tissueswelling around some of the arthritic joints. Left hand: No fracture or dislocation is present. There is osteoarthritis ofmultiple joints, greatest at the first carpometacarpal joint where it is moderateto severe with subluxation. There is mild involvement of several otherjoints. There are no erosions. The bones are mildly osteopenic. There is minimal soft tissue swelling adjacent to some of the arthritic joints. Right shoulder: No fracture or dislocation is present. There is mild acromioclavicular osteoarthritis. The glenohumeral joint space is normal with small osteophytes inferiorly. There are no erosions. A calcified right hilar lymph node is visible. Left shoulder: No fracture or dislocation is present. There is moderateacromioclavicular and glenohumeral osteoarthritis. There are several lucencies in thehumeral head at the greater tuberosity likely representing degenerative cysts.No definite erosions are seen. Sacroiliac joints: There is mild sclerosis to moderate sclerosis bilaterally with small osteophytes are visible in the left likely representing osteoarthritis. There is no erosion, widening, or ankylosis of either joint. Right hip arthroplasty is noted. There are multiple pelvic enthesophytes. Right foot: No fracture or dislocation is present. There is hallux valgus with hypertrophy of the first metatarsal head, adjacent soft tissue swelling, and mild osteoarthritis at the first metatarsophalangeal joint. Theother joint spaces are normal. There are small posterior and moderate plantar calcaneal spurs. There are no erosions. Left foot: No fracture or dislocation is present. There is mild osteoarthritis atthe first metatarsophalangeal joint. There are no erosions. There are small posterior and moderate plantar calcaneal spurs. There are smallosteophytes at the tibiotalar joint. IMPRESSION: 1.Right hand: Moderate osteoarthritis. 2.Left hand: Osteoarthritis, greatest at the first carpometacarpal joint where it is moderate to severe. 3.Right shoulder: Mild osteoarthritis. 4.Left shoulder: Moderate osteoarthritis. 5.Sacroiliac joints: Mild osteoarthritis. 6.Right foot: Hallux valgus and mild first metatarsophalangeal joint osteoarthritis. 7.Left foot: Mild first metatarsophalangeal osteoarthritis. > Interpreting Provider: Oj Nettles MD on 04/01/2025 11:07 AM Serene Brown MD DIAGNOSTIC IMAGING ORDERABLES Final Result * XR Hand Right 3Vw or More (04/01/2025 10:38 AM LINING FINISHER) Anatomical Region Laterality Modality Wrist / Hand Digital Radiogra phy 04/01/2025 11:0 1 AM LINING FINISHER Impressions 04/01/2025 11:07 AM LINING FINISHER IMPRESSION: 1.Right hand: Moderate osteoarthritis. 2.Left hand: Osteoarthritis, greatest at the first carpometacarpal joint where it is moderate to severe. 3.Right shoulder: Mild osteoarthritis. 4.Left shoulder: Moderate osteoarthritis. 5.Sacroiliac joints: Mild osteoarthritis. 6.Right foot: Hallux valgus and mild first metatarsophalangeal joint osteoarthritis. 7.Left foot: Mild first metatarsophalangeal osteoarthritis. > Interpreting Provider: Oj Nettles MD on 04/01/2025 11:07 AM Narrative 04/01/2025 11:07 AM LINING FINISHER PROCEDURE: XR SHOULDER RIGHT 2VW OR MORE, XR SHOULDER LEFT 2VW OR MORE, XR SI JOINTS 3VW OR MORE, XR HAND RIGHT 3VW OR MORE, XR HAND LEFT 3VW OR MORE, XR FOOT RIGHT 3VW OR MORE, XR FOOT LEFT 3VW OR MORE DATE/TIME OF EXAM: 04/01/2025 10:38 AM CLINICAL INFORMATION: None relevant/not provided if blank. Indication: M15.9: Osteoarthritis of multiple joints, unspecified osteoarthritis type Additional History: COMPARISON: None. FINDINGS: Right hand: No fracture or dislocation is present. There is osteoarthritis of multiple joints, greatest at the first carpometacarpal, thumb interphalangeal, and second and third digit distal interphalangeal where it is moderate. There is mild involvement at several additional joints. There are no erosions. The bones are mildly osteopenic. There there is mild soft tissue swelling around some of the arthritic joints. Left hand: No fracture or dislocation is present. There is osteoarthritis of multiple joints, greatest at the first carpometacarpal joint where it is moderate to severe with subluxation. There is mild involvement of several other joints. There are no erosions. The bones are mildly osteopenic. There is minimal soft tissue swelling adjacent to some of the arthritic joints. Right shoulder: No fracture or dislocation is present. There is mild acromioclavicular osteoarthritis. The glenohumeral joint space is normal with small osteophytes inferiorly. There are no erosions. A calcified right hilar lymph node is visible. Left shoulder: No fracture or dislocation is present. There is moderate acromioclavicular and glenohumeral osteoarthritis. There are several lucencies in the humeral head at the greater tuberosity likely representing degenerative cysts. No definite erosions are seen. Sacroiliac joints: There is mild sclerosis to moderate sclerosis bilaterally with small osteophytes are visible in the left likely representing osteoarthritis. There is no erosion, widening, or ankylosis of either joint. Right hip arthroplasty is noted. There are multiple pelvic enthesophytes. Right foot: No fracture or dislocation is present. There is hallux valgus with hypertrophy of the first metatarsal head, adjacent soft tissue swelling, and mild osteoarthritis at the first metatarsophalangeal joint. The other joint spaces are normal. There are small posterior and moderate plantar calcaneal spurs. There are no erosions. Left foot: No fracture or dislocation is present. There is mild osteoarthritis at the first metatarsophalangeal joint. There are no erosions. There are small posterior and moderate plantar calcaneal spurs. There are small osteophytes at the tibiotalar joint. Procedure Note Oj Nettles MD - 04/01/2025 PROCEDURE: XR SHOULDER RIGHT 2VW OR MORE, XR SHOULDER LEFT 2VW OR MORE,XR SI JOINTS 3VW OR MORE, XR HAND RIGHT 3VW OR MORE, XR HAND LEFT 3VW ORMORE, XR FOOT RIGHT 3VW OR MORE, XR FOOT LEFT 3VW OR MORE DATE/TIME OF EXAM: 04/01/2025 10:38 AM CLINICAL INFORMATION: None relevant/not provided if blank. Indication: M15.9: Osteoarthritis of multiple joints, unspecified osteoarthritis type Additional History: COMPARISON: None. FINDINGS: Right hand: No fracture or dislocation is present. There is osteoarthritis ofmultiple joints, greatest at the first carpometacarpal, thumb interphalangeal,and second and third digit distal interphalangeal where it is moderate.There is mild involvement at several additional joints. There are no erosions. The bones are mildly osteopenic. There there is mild soft tissueswelling around some of the arthritic joints. Left hand: No fracture or dislocation is present. There is osteoarthritis ofmultiple joints, greatest at the first carpometacarpal joint where it is moderateto severe with subluxation. There is mild involvement of several otherjoints. There are no erosions. The bones are mildly osteopenic. There is minimal soft tissue swelling adjacent to some of the arthritic joints. Right shoulder: No fracture or dislocation is present. There is mild acromioclavicular osteoarthritis. The glenohumeral joint space is normal with small osteophytes inferiorly. There are no erosions. A calcified right hilar lymph node is visible. Left shoulder: No fracture or dislocation is present. There is moderateacromioclavicular and glenohumeral osteoarthritis. There are several lucencies in thehumeral head at the greater tuberosity likely representing degenerative cysts.No definite erosions are seen. Sacroiliac joints: There is mild sclerosis to moderate sclerosis bilaterally with small osteophytes are visible in the left likely representing osteoarthritis. There is no erosion, widening, or ankylosis of either joint. Right hip arthroplasty is noted. There are multiple pelvic enthesophytes. Right foot: No fracture or dislocation is present. There is hallux valgus with hypertrophy of the first metatarsal head, adjacent soft tissue swelling, and mild osteoarthritis at the first metatarsophalangeal joint. Theother joint spaces are normal. There are small posterior and moderate plantar calcaneal spurs. There are no erosions. Left foot: No fracture or dislocation is present. There is mild osteoarthritis atthe first metatarsophalangeal joint. There are no erosions. There are small posterior and moderate plantar calcaneal spurs. There are smallosteophytes at the tibiotalar joint. IMPRESSION: 1.Right hand: Moderate osteoarthritis. 2.Left hand: Osteoarthritis, greatest at the first carpometacarpal joint where it is moderate to severe. 3.Right shoulder: Mild osteoarthritis. 4.Left shoulder: Moderate osteoarthritis. 5.Sacroiliac joints: Mild osteoarthritis. 6.Right foot: Hallux valgus and mild first metatarsophalangeal joint osteoarthritis. 7.Left foot: Mild first metatarsophalangeal osteoarthritis. > Interpreting Provider: Oj Nettles MD on 04/01/2025 11:07 AM Serene Brown MD DIAGNOSTIC IMAGING ORDERABLES Final Result * XR Hand Left 3Vw or More (04/01/2025 10:38 AM LINING FINISHER) Anatomical Region Laterality Modality Wrist / Hand Digital Radiogra phy 04/01/2025 11:0 1 AM LINING FINISHER Impressions 04/01/2025 11:07 AM LINING FINISHER IMPRESSION: 1.Right hand: Moderate osteoarthritis. 2.Left hand: Osteoarthritis, greatest at the first carpometacarpal joint where it is moderate to severe. 3.Right shoulder: Mild osteoarthritis. 4.Left shoulder: Moderate osteoarthritis. 5.Sacroiliac joints: Mild osteoarthritis. 6.Right foot: Hallux valgus and mild first metatarsophalangeal joint osteoarthritis. 7.Left foot: Mild first metatarsophalangeal osteoarthritis. > Interpreting Provider: Oj Nettles MD on 04/01/2025 11:07 AM Narrative 04/01/2025 11:07 AM LINING FINISHER PROCEDURE: XR SHOULDER RIGHT 2VW OR MORE, XR SHOULDER LEFT 2VW OR MORE, XR SI JOINTS 3VW OR MORE, XR HAND RIGHT 3VW OR MORE, XR HAND LEFT 3VW OR MORE, XR FOOT RIGHT 3VW OR MORE, XR FOOT LEFT 3VW OR MORE DATE/TIME OF EXAM: 04/01/2025 10:38 AM CLINICAL INFORMATION: None relevant/not provided if blank. Indication: M15.9: Osteoarthritis of multiple joints, unspecified osteoarthritis type Additional History: COMPARISON: None. FINDINGS: Right hand: No fracture or dislocation is present. There is osteoarthritis of multiple joints, greatest at the first carpometacarpal, thumb interphalangeal, and second and third digit distal interphalangeal where it is moderate. There is mild involvement at several additional joints. There are no erosions. The bones are mildly osteopenic. There there is mild soft tissue swelling around some of the arthritic joints. Left hand: No fracture or dislocation is present. There is osteoarthritis of multiple joints, greatest at the first carpometacarpal joint where it is moderate to severe with subluxation. There is mild involvement of several other joints. There are no erosions. The bones are mildly osteopenic. There is minimal soft tissue swelling adjacent to some of the arthritic joints. Right shoulder: No fracture or dislocation is present. There is mild acromioclavicular osteoarthritis. The glenohumeral joint space is normal with small osteophytes inferiorly. There are no erosions. A calcified right hilar lymph node is visible. Left shoulder: No fracture or dislocation is present. There is moderate acromioclavicular and glenohumeral osteoarthritis. There are several lucencies in the humeral head at the greater tuberosity likely representing degenerative cysts. No definite erosions are seen. Sacroiliac joints: There is mild sclerosis to moderate sclerosis bilaterally with small osteophytes are visible in the left likely representing osteoarthritis. There is no erosion, widening, or ankylosis of either joint. Right hip arthroplasty is noted. There are multiple pelvic enthesophytes. Right foot: No fracture or dislocation is present. There is hallux valgus with hypertrophy of the first metatarsal head, adjacent soft tissue swelling, and mild osteoarthritis at the first metatarsophalangeal joint. The other joint spaces are normal. There are small posterior and moderate plantar calcaneal spurs. There are no erosions. Left foot: No fracture or dislocation is present. There is mild osteoarthritis at the first metatarsophalangeal joint. There are no erosions. There are small posterior and moderate plantar calcaneal spurs. There are small osteophytes at the tibiotalar joint. Procedure Note Oj Nettles MD - 04/01/2025 PROCEDURE: XR SHOULDER RIGHT 2VW OR MORE, XR SHOULDER LEFT 2VW OR MORE,XR SI JOINTS 3VW OR MORE, XR HAND RIGHT 3VW OR MORE, XR HAND LEFT 3VW ORMORE, XR FOOT RIGHT 3VW OR MORE, XR FOOT LEFT 3VW OR MORE DATE/TIME OF EXAM: 04/01/2025 10:38 AM CLINICAL INFORMATION: None relevant/not provided if blank. Indication: M15.9: Osteoarthritis of multiple joints, unspecified osteoarthritis type Additional History: COMPARISON: None. FINDINGS: Right hand: No fracture or dislocation is present. There is osteoarthritis ofmultiple joints, greatest at the first carpometacarpal, thumb interphalangeal,and second and third digit distal interphalangeal where it is moderate.There is mild involvement at several additional joints. There are no erosions. The bones are mildly osteopenic. There there is mild soft tissueswelling around some of the arthritic joints. Left hand: No fracture or dislocation is present. There is osteoarthritis ofmultiple joints, greatest at the first carpometacarpal joint where it is moderateto severe with subluxation. There is mild involvement of several otherjoints. There are no erosions. The bones are mildly osteopenic. There is minimal soft tissue swelling adjacent to some of the arthritic joints. Right shoulder: No fracture or dislocation is present. There is mild acromioclavicular osteoarthritis. The glenohumeral joint space is normal with small osteophytes inferiorly. There are no erosions. A calcified right hilar lymph node is visible. Left shoulder: No fracture or dislocation is present. There is moderateacromioclavicular and glenohumeral osteoarthritis. There are several lucencies in thehumeral head at the greater tuberosity likely representing degenerative cysts.No definite erosions are seen. Sacroiliac joints: There is mild sclerosis to moderate sclerosis bilaterally with small osteophytes are visible in the left likely representing osteoarthritis. There is no erosion, widening, or ankylosis of either joint. Right hip arthroplasty is noted. There are multiple pelvic enthesophytes. Right foot: No fracture or dislocation is present. There is hallux valgus with hypertrophy of the first metatarsal head, adjacent soft tissue swelling, and mild osteoarthritis at the first metatarsophalangeal joint. Theother joint spaces are normal. There are small posterior and moderate plantar calcaneal spurs. There are no erosions. Left foot: No fracture or dislocation is present. There is mild osteoarthritis atthe first metatarsophalangeal joint. There are no erosions. There are small posterior and moderate plantar calcaneal spurs. There are smallosteophytes at the tibiotalar joint. IMPRESSION: 1.Right hand: Moderate osteoarthritis. 2.Left hand: Osteoarthritis, greatest at the first carpometacarpal joint where it is moderate to severe. 3.Right shoulder: Mild osteoarthritis. 4.Left shoulder: Moderate osteoarthritis. 5.Sacroiliac joints: Mild osteoarthritis. 6.Right foot: Hallux valgus and mild first metatarsophalangeal joint osteoarthritis. 7.Left foot: Mild first metatarsophalangeal osteoarthritis. > Interpreting Provider: Oj Nettles MD on 04/01/2025 11:07 AM Serene Brown MD DIAGNOSTIC IMAGING ORDERABLES Final Result * XR Shoulder Right 2Vw or More (04/01/2025 10:38 AM LINING FINISHER) Anatomical Region Laterality Modality Upper Extremity Digital Radiogra phy 04/01/2025 11:0 1 AM LINING FINISHER Impressions 04/01/2025 11:07 AM LINING FINISHER IMPRESSION: 1.Right hand: Moderate osteoarthritis. 2.Left hand: Osteoarthritis, greatest at the first carpometacarpal joint where it is moderate to severe. 3.Right shoulder: Mild osteoarthritis. 4.Left shoulder: Moderate osteoarthritis. 5.Sacroiliac joints: Mild osteoarthritis. 6.Right foot: Hallux valgus and mild first metatarsophalangeal joint osteoarthritis. 7.Left foot: Mild first metatarsophalangeal osteoarthritis. > Interpreting Provider: Oj Nettles MD on 04/01/2025 11:07 AM Narrative 04/01/2025 11:07 AM LINING FINISHER PROCEDURE: XR SHOULDER RIGHT 2VW OR MORE, XR SHOULDER LEFT 2VW OR MORE, XR SI JOINTS 3VW OR MORE, XR HAND RIGHT 3VW OR MORE, XR HAND LEFT 3VW OR MORE, XR FOOT RIGHT 3VW OR MORE, XR FOOT LEFT 3VW OR MORE DATE/TIME OF EXAM: 04/01/2025 10:38 AM CLINICAL INFORMATION: None relevant/not provided if blank. Indication: M15.9: Osteoarthritis of multiple joints, unspecified osteoarthritis type Additional History: COMPARISON: None. FINDINGS: Right hand: No fracture or dislocation is present. There is osteoarthritis of multiple joints, greatest at the first carpometacarpal, thumb interphalangeal, and second and third digit distal interphalangeal where it is moderate. There is mild involvement at several additional joints. There are no erosions. The bones are mildly osteopenic. There there is mild soft tissue swelling around some of the arthritic joints. Left hand: No fracture or dislocation is present. There is osteoarthritis of multiple joints, greatest at the first carpometacarpal joint where it is moderate to severe with subluxation. There is mild involvement of several other joints. There are no erosions. The bones are mildly osteopenic. There is minimal soft tissue swelling adjacent to some of the arthritic joints. Right shoulder: No fracture or dislocation is present. There is mild acromioclavicular osteoarthritis. The glenohumeral joint space is normal with small osteophytes inferiorly. There are no erosions. A calcified right hilar lymph node is visible. Left shoulder: No fracture or dislocation is present. There is moderate acromioclavicular and glenohumeral osteoarthritis. There are several lucencies in the humeral head at the greater tuberosity likely representing degenerative cysts. No definite erosions are seen. Sacroiliac joints: There is mild sclerosis to moderate sclerosis bilaterally with small osteophytes are visible in the left likely representing osteoarthritis. There is no erosion, widening, or ankylosis of either joint. Right hip arthroplasty is noted. There are multiple pelvic enthesophytes. Right foot: No fracture or dislocation is present. There is hallux valgus with hypertrophy of the first metatarsal head, adjacent soft tissue swelling, and mild osteoarthritis at the first metatarsophalangeal joint. The other joint spaces are normal. There are small posterior and moderate plantar calcaneal spurs. There are no erosions. Left foot: No fracture or dislocation is present. There is mild osteoarthritis at the first metatarsophalangeal joint. There are no erosions. There are small posterior and moderate plantar calcaneal spurs. There are small osteophytes at the tibiotalar joint. Procedure Note Oj Nettles MD - 04/01/2025 PROCEDURE: XR SHOULDER RIGHT 2VW OR MORE, XR SHOULDER LEFT 2VW OR MORE,XR SI JOINTS 3VW OR MORE, XR HAND RIGHT 3VW OR MORE, XR HAND LEFT 3VW ORMORE, XR FOOT RIGHT 3VW OR MORE, XR FOOT LEFT 3VW OR MORE DATE/TIME OF EXAM: 04/01/2025 10:38 AM CLINICAL INFORMATION: None relevant/not provided if blank. Indication: M15.9: Osteoarthritis of multiple joints, unspecified osteoarthritis type Additional History: COMPARISON: None. FINDINGS: Right hand: No fracture or dislocation is present. There is osteoarthritis ofmultiple joints, greatest at the first carpometacarpal, thumb interphalangeal,and second and third digit distal interphalangeal where it is moderate.There is mild involvement at several additional joints. There are no erosions. The bones are mildly osteopenic. There there is mild soft tissueswelling around some of the arthritic joints. Left hand: No fracture or dislocation is present. There is osteoarthritis ofmultiple joints, greatest at the first carpometacarpal joint where it is moderateto severe with subluxation. There is mild involvement of several otherjoints. There are no erosions. The bones are mildly osteopenic. There is minimal soft tissue swelling adjacent to some of the arthritic joints. Right shoulder: No fracture or dislocation is present. There is mild acromioclavicular osteoarthritis. The glenohumeral joint space is normal with small osteophytes inferiorly. There are no erosions. A calcified right hilar lymph node is visible. Left shoulder: No fracture or dislocation is present. There is moderateacromioclavicular and glenohumeral osteoarthritis. There are several lucencies in thehumeral head at the greater tuberosity likely representing degenerative cysts.No definite erosions are seen. Sacroiliac joints: There is mild sclerosis to moderate sclerosis bilaterally with small osteophytes are visible in the left likely representing osteoarthritis. There is no erosion, widening, or ankylosis of either joint. Right hip arthroplasty is noted. There are multiple pelvic enthesophytes. Right foot: No fracture or dislocation is present. There is hallux valgus with hypertrophy of the first metatarsal head, adjacent soft tissue swelling, and mild osteoarthritis at the first metatarsophalangeal joint. Theother joint spaces are normal. There are small posterior and moderate plantar calcaneal spurs. There are no erosions. Left foot: No fracture or dislocation is present. There is mild osteoarthritis atthe first metatarsophalangeal joint. There are no erosions. There are small posterior and moderate plantar calcaneal spurs. There are smallosteophytes at the tibiotalar joint. IMPRESSION: 1.Right hand: Moderate osteoarthritis. 2.Left hand: Osteoarthritis, greatest at the first carpometacarpal joint where it is moderate to severe. 3.Right shoulder: Mild osteoarthritis. 4.Left shoulder: Moderate osteoarthritis. 5.Sacroiliac joints: Mild osteoarthritis. 6.Right foot: Hallux valgus and mild first metatarsophalangeal joint osteoarthritis. 7.Left foot: Mild first metatarsophalangeal osteoarthritis. > Interpreting Provider: Oj Nettles MD on 04/01/2025 11:07 AM Serene Brown MD DIAGNOSTIC IMAGING ORDERABLES Final Result * XR Shoulder Left 2Vw or More (04/01/2025 10:38 AM LINING FINISHER) Anatomical Region Laterality Modality Upper Extremity Digital Radiogra phy 04/01/2025 11:0 1 AM LINING FINISHER Impressions 04/01/2025 11:07 AM LINING FINISHER IMPRESSION: 1.Right hand: Moderate osteoarthritis. 2.Left hand: Osteoarthritis, greatest at the first carpometacarpal joint where it is moderate to severe. 3.Right shoulder: Mild osteoarthritis. 4.Left shoulder: Moderate osteoarthritis. 5.Sacroiliac joints: Mild osteoarthritis. 6.Right foot: Hallux valgus and mild first metatarsophalangeal joint osteoarthritis. 7.Left foot: Mild first metatarsophalangeal osteoarthritis. > Interpreting Provider: Oj Nettles MD on 04/01/2025 11:07 AM Narrative 04/01/2025 11:07 AM LINING FINISHER PROCEDURE: XR SHOULDER RIGHT 2VW OR MORE, XR SHOULDER LEFT 2VW OR MORE, XR SI JOINTS 3VW OR MORE, XR HAND RIGHT 3VW OR MORE, XR HAND LEFT 3VW OR MORE, XR FOOT RIGHT 3VW OR MORE, XR FOOT LEFT 3VW OR MORE DATE/TIME OF EXAM: 04/01/2025 10:38 AM CLINICAL INFORMATION: None relevant/not provided if blank. Indication: M15.9: Osteoarthritis of multiple joints, unspecified osteoarthritis type Additional History: COMPARISON: None. FINDINGS: Right hand: No fracture or dislocation is present. There is osteoarthritis of multiple joints, greatest at the first carpometacarpal, thumb interphalangeal, and second and third digit distal interphalangeal where it is moderate. There is mild involvement at several additional joints. There are no erosions. The bones are mildly osteopenic. There there is mild soft tissue swelling around some of the arthritic joints. Left hand: No fracture or dislocation is present. There is osteoarthritis of multiple joints, greatest at the first carpometacarpal joint where it is moderate to severe with subluxation. There is mild involvement of several other joints. There are no erosions. The bones are mildly osteopenic. There is minimal soft tissue swelling adjacent to some of the arthritic joints. Right shoulder: No fracture or dislocation is present. There is mild acromioclavicular osteoarthritis. The glenohumeral joint space is normal with small osteophytes inferiorly. There are no erosions. A calcified right hilar lymph node is visible. Left shoulder: No fracture or dislocation is present. There is moderate acromioclavicular and glenohumeral osteoarthritis. There are several lucencies in the humeral head at the greater tuberosity likely representing degenerative cysts. No definite erosions are seen. Sacroiliac joints: There is mild sclerosis to moderate sclerosis bilaterally with small osteophytes are visible in the left likely representing osteoarthritis. There is no erosion, widening, or ankylosis of either joint. Right hip arthroplasty is noted. There are multiple pelvic enthesophytes. Right foot: No fracture or dislocation is present. There is hallux valgus with hypertrophy of the first metatarsal head, adjacent soft tissue swelling, and mild osteoarthritis at the first metatarsophalangeal joint. The other joint spaces are normal. There are small posterior and moderate plantar calcaneal spurs. There are no erosions. Left foot: No fracture or dislocation is present. There is mild osteoarthritis at the first metatarsophalangeal joint. There are no erosions. There are small posterior and moderate plantar calcaneal spurs. There are small osteophytes at the tibiotalar joint. Procedure Note Oj Nettles MD - 04/01/2025 PROCEDURE: XR SHOULDER RIGHT 2VW OR MORE, XR SHOULDER LEFT 2VW OR MORE,XR SI JOINTS 3VW OR MORE, XR HAND RIGHT 3VW OR MORE, XR HAND LEFT 3VW ORMORE, XR FOOT RIGHT 3VW OR MORE, XR FOOT LEFT 3VW OR MORE DATE/TIME OF EXAM: 04/01/2025 10:38 AM CLINICAL INFORMATION: None relevant/not provided if blank. Indication: M15.9: Osteoarthritis of multiple joints, unspecified osteoarthritis type Additional History: COMPARISON: None. FINDINGS: Right hand: No fracture or dislocation is present. There is osteoarthritis ofmultiple joints, greatest at the first carpometacarpal, thumb interphalangeal,and second and third digit distal interphalangeal where it is moderate.There is mild involvement at several additional joints. There are no erosions. The bones are mildly osteopenic. There there is mild soft tissueswelling around some of the arthritic joints. Left hand: No fracture or dislocation is present. There is osteoarthritis ofmultiple joints, greatest at the first carpometacarpal joint where it is moderateto severe with subluxation. There is mild involvement of several otherjoints. There are no erosions. The bones are mildly osteopenic. There is minimal soft tissue swelling adjacent to some of the arthritic joints. Right shoulder: No fracture or dislocation is present. There is mild acromioclavicular osteoarthritis. The glenohumeral joint space is normal with small osteophytes inferiorly. There are no erosions. A calcified right hilar lymph node is visible. Left shoulder: No fracture or dislocation is present. There is moderateacromioclavicular and glenohumeral osteoarthritis. There are several lucencies in thehumeral head at the greater tuberosity likely representing degenerative cysts.No definite erosions are seen. Sacroiliac joints: There is mild sclerosis to moderate sclerosis bilaterally with small osteophytes are visible in the left likely representing osteoarthritis. There is no erosion, widening, or ankylosis of either joint. Right hip arthroplasty is noted. There are multiple pelvic enthesophytes. Right foot: No fracture or dislocation is present. There is hallux valgus with hypertrophy of the first metatarsal head, adjacent soft tissue swelling, and mild osteoarthritis at the first metatarsophalangeal joint. Theother joint spaces are normal. There are small posterior and moderate plantar calcaneal spurs. There are no erosions. Left foot: No fracture or dislocation is present. There is mild osteoarthritis atthe first metatarsophalangeal joint. There are no erosions. There are small posterior and moderate plantar calcaneal spurs. There are smallosteophytes at the tibiotalar joint. IMPRESSION: 1.Right hand: Moderate osteoarthritis. 2.Left hand: Osteoarthritis, greatest at the first carpometacarpal joint where it is moderate to severe. 3.Right shoulder: Mild osteoarthritis. 4.Left shoulder: Moderate osteoarthritis. 5.Sacroiliac joints: Mild osteoarthritis. 6.Right foot: Hallux valgus and mild first metatarsophalangeal joint osteoarthritis. 7.Left foot: Mild first metatarsophalangeal osteoarthritis. > Interpreting Provider: Oj Nettles MD on 04/01/2025 11:07 AM Serene Brown MD DIAGNOSTIC IMAGING ORDERABLES Final Result * XR SI Joints 3Vw or More (04/01/2025 10:38 AM LINING FINISHER) Anatomical Region Laterality Modality Pelvis, Lower Extremity Digital Radiography 04/01/2025 11:0 1 AM LINING FINISHER Impressions 04/01/2025 11:07 AM LINING FINISHER IMPRESSION: 1.Right hand: Moderate osteoarthritis. 2.Left hand: Osteoarthritis, greatest at the first carpometacarpal joint where it is moderate to severe. 3.Right shoulder: Mild osteoarthritis. 4.Left shoulder: Moderate osteoarthritis. 5.Sacroiliac joints: Mild osteoarthritis. 6.Right foot: Hallux valgus and mild first metatarsophalangeal joint osteoarthritis. 7.Left foot: Mild first metatarsophalangeal osteoarthritis. > Interpreting Provider: Oj Nettles MD on 04/01/2025 11:07 AM Narrative 04/01/2025 11:07 AM LINING FINISHER PROCEDURE: XR SHOULDER RIGHT 2VW OR MORE, XR SHOULDER LEFT 2VW OR MORE, XR SI JOINTS 3VW OR MORE, XR HAND RIGHT 3VW OR MORE, XR HAND LEFT 3VW OR MORE, XR FOOT RIGHT 3VW OR MORE, XR FOOT LEFT 3VW OR MORE DATE/TIME OF EXAM: 04/01/2025 10:38 AM CLINICAL INFORMATION: None relevant/not provided if blank. Indication: M15.9: Osteoarthritis of multiple joints, unspecified osteoarthritis type Additional History: COMPARISON: None. FINDINGS: Right hand: No fracture or dislocation is present. There is osteoarthritis of multiple joints, greatest at the first carpometacarpal, thumb interphalangeal, and second and third digit distal interphalangeal where it is moderate. There is mild involvement at several additional joints. There are no erosions. The bones are mildly osteopenic. There there is mild soft tissue swelling around some of the arthritic joints. Left hand: No fracture or dislocation is present. There is osteoarthritis of multiple joints, greatest at the first carpometacarpal joint where it is moderate to severe with subluxation. There is mild involvement of several other joints. There are no erosions. The bones are mildly osteopenic. There is minimal soft tissue swelling adjacent to some of the arthritic joints. Right shoulder: No fracture or dislocation is present. There is mild acromioclavicular osteoarthritis. The glenohumeral joint space is normal with small osteophytes inferiorly. There are no erosions. A calcified right hilar lymph node is visible. Left shoulder: No fracture or dislocation is present. There is moderate acromioclavicular and glenohumeral osteoarthritis. There are several lucencies in the humeral head at the greater tuberosity likely representing degenerative cysts. No definite erosions are seen. Sacroiliac joints: There is mild sclerosis to moderate sclerosis bilaterally with small osteophytes are visible in the left likely representing osteoarthritis. There is no erosion, widening, or ankylosis of either joint. Right hip arthroplasty is noted. There are multiple pelvic enthesophytes. Right foot: No fracture or dislocation is present. There is hallux valgus with hypertrophy of the first metatarsal head, adjacent soft tissue swelling, and mild osteoarthritis at the first metatarsophalangeal joint. The other joint spaces are normal. There are small posterior and moderate plantar calcaneal spurs. There are no erosions. Left foot: No fracture or dislocation is present. There is mild osteoarthritis at the first metatarsophalangeal joint. There are no erosions. There are small posterior and moderate plantar calcaneal spurs. There are small osteophytes at the tibiotalar joint. Procedure Note Oj Nettles MD - 04/01/2025 PROCEDURE: XR SHOULDER RIGHT 2VW OR MORE, XR SHOULDER LEFT 2VW OR MORE,XR SI JOINTS 3VW OR MORE, XR HAND RIGHT 3VW OR MORE, XR HAND LEFT 3VW ORMORE, XR FOOT RIGHT 3VW OR MORE, XR FOOT LEFT 3VW OR MORE DATE/TIME OF EXAM: 04/01/2025 10:38 AM CLINICAL INFORMATION: None relevant/not provided if blank. Indication: M15.9: Osteoarthritis of multiple joints, unspecified osteoarthritis type Additional History: COMPARISON: None. FINDINGS: Right hand: No fracture or dislocation is present. There is osteoarthritis ofmultiple joints, greatest at the first carpometacarpal, thumb interphalangeal,and second and third digit distal interphalangeal where it is moderate.There is mild involvement at several additional joints. There are no erosions. The bones are mildly osteopenic. There there is mild soft tissueswelling around some of the arthritic joints. Left hand: No fracture or dislocation is present. There is osteoarthritis ofmultiple joints, greatest at the first carpometacarpal joint where it is moderateto severe with subluxation. There is mild involvement of several otherjoints. There are no erosions. The bones are mildly osteopenic. There is minimal soft tissue swelling adjacent to some of the arthritic joints. Right shoulder: No fracture or dislocation is present. There is mild acromioclavicular osteoarthritis. The glenohumeral joint space is normal with small osteophytes inferiorly. There are no erosions. A calcified right hilar lymph node is visible. Left shoulder: No fracture or dislocation is present. There is moderateacromioclavicular and glenohumeral osteoarthritis. There are several lucencies in thehumeral head at the greater tuberosity likely representing degenerative cysts.No definite erosions are seen. Sacroiliac joints: There is mild sclerosis to moderate sclerosis bilaterally with small osteophytes are visible in the left likely representing osteoarthritis. There is no erosion, widening, or ankylosis of either joint. Right hip arthroplasty is noted. There are multiple pelvic enthesophytes. Right foot: No fracture or dislocation is present. There is hallux valgus with hypertrophy of the first metatarsal head, adjacent soft tissue swelling, and mild osteoarthritis at the first metatarsophalangeal joint. Theother joint spaces are normal. There are small posterior and moderate plantar calcaneal spurs. There are no erosions. Left foot: No fracture or dislocation is present. There is mild osteoarthritis atthe first metatarsophalangeal joint. There are no erosions. There are small posterior and moderate plantar calcaneal spurs. There are smallosteophytes at the tibiotalar joint. IMPRESSION: 1.Right hand: Moderate osteoarthritis. 2.Left hand: Osteoarthritis, greatest at the first carpometacarpal joint where it is moderate to severe. 3.Right shoulder: Mild osteoarthritis. 4.Left shoulder: Moderate osteoarthritis. 5.Sacroiliac joints: Mild osteoarthritis. 6.Right foot: Hallux valgus and mild first metatarsophalangeal joint osteoarthritis. 7.Left foot: Mild first metatarsophalangeal osteoarthritis. > Interpreting Provider: Oj Nettles MD on 04/01/2025 11:07 AM Serene Brown MD DIAGNOSTIC IMAGING ORDERABLES Final Result * XR Lumbar Spine 2 or 3Vw (04/01/2025 10:38 AM LINING FINISHER) Anatomical Region Laterality Modality Spine Digital Radiogra phy 04/01/2025 11:3 5 AM LINING FINISHER Impressions 04/01/2025 5:48 PM LINING FINISHER IMPRESSION: There is diffuse facet joint arthropathy and degenerative disc disease. Grade 1 anterolisthesis of L4 and L5. Grade 1 retrolisthesis of L3 on L4. Atherosclerosis of the abdominal vasculature. Report dictated by Michele Myers M.D., (vice president for instruction). > Dictated by Head Of Merchandise Buying I, Lonnie Hairston MD have personally reviewed and interpreted this examination/study. > Interpreting Provider: Lonnie Hairston MD on 04/01/2025 5:48 PM Narrative 04/01/2025 5:48 PM LINING FINISHER PROCEDURE: XR LUMBAR SPINE 2 OR 3VW, DATE/TIME OF EXAM: 04/01/2025 10:38 AM, LOCATION [facility] INDICATION: M25.50: Polyarthralgia M15.9: Osteoarthritis of multiple joints, unspecified osteoarthritis type ADDITIONAL CLINICAL INFORMATION: Ordering Provider Reason For Exam: Please evaluate for signs of inflammatory arthropathy. Technologist Note: Additional: COMPARISON: SI joint radiograph 04/01/2025 FINDINGS: Partially imaged right hip prosthesis. There is grade 1 anterolisthesis of L4 on L5. There is grade 1 retrolisthesis of L3 on L4. There is no acute, displaced fracture or compression deformity. There is diffuse degenerative disc disease. There is diffuse facet joint arthropathy. Bone density and texture are normal. There is atherosclerotic calcification of the abdominal vasculature. Procedure Note Lonnie Hairston MD - 04/01/2025 PROCEDURE: XR LUMBAR SPINE 2 OR 3VW, DATE/TIME OF EXAM: 0:38 AM, LOCATION [facility] INDICATION: M25.50: Polyarthralgia M15.9: Osteoarthritis of multiple joints, unspecified osteoarthritistype ADDITIONAL CLINICAL INFORMATION: Ordering Provider Reason For Exam: Please evaluate for signs of inflammatory arthropathy. Technologist Note: Additional: COMPARISON: SI joint radiograph 04/01/2025 FINDINGS: Partially imaged right hip prosthesis. There is grade 1 anterolisthesis of L4 on L5. There is grade 1 retrolisthesis of L3 on L4. There is no acute, displaced fracture or compression deformity. There is diffuse degenerative disc disease. Thereis diffuse facet joint arthropathy. Bone density and texture are normal.There is atherosclerotic calcification of the abdominal vasculature. IMPRESSION: There is diffuse facet joint arthropathy and degenerative disc disease. Grade 1 anterolisthesis of L4 and L5. Grade 1 retrolisthesis of L3 onL4. Atherosclerosis of the abdominal vasculature. Report dictated by Michele Myers M.D., (vice president for instruction). > Dictated by Head Of Merchandise Buying I, Lonnie Hairston MD have personally reviewed and interpreted this examination/study. > Interpreting Provider: Lonnie Hairston MD on 04/01/2025 5:48 PM Serene Brown MD DIAGNOSTIC IMAGING ORDERABLES Final Result from Last 3 Months Insurance [employer] MEDICARE ADV MEDICARE Care Teams Moisture Conditioner Operator Relationship Specialty Start Date End Date Abby Bernardo MD [address] [place] [address] PCP - General Emergency Medicine 04/01/25
--- OUTSIDE RECORDS SUMMARY | 2025-04-08 11:36 | XMS_ITS | Clinical Summary ---
Author Organization [facility] Address [address] [place] [address] Care Team Providers Care Cut Off Sawyer Log Name Role Phone Reginaldo Daley MD Unavailable [phone] Delio Freire OT Unavailable Unavailable Kathleen Olivarez Unavailable [phone] Abby Bernardo MD Primary Care Provider [phone] Allergies Active Allergy Reactions Criticality Noted Date Comments Sulfa (Sulfonamide Antibiotics) Rash Medium 03/24 Medications traZODone (DESYREL) 50 mg tablet Take 2 tablets (100 mg total) by mouth nightly Active pramipexole (MIRAPEX) 0.25 mg tablet Take 2 tablets (0.5 mg total) by mouth daily Active gabapentin (NEURONTIN) 600 mg tablet Take 1 tablet (600 mg total) by mouth 3 (three) times a day 10/13/[address] (CYMBALTA) 60 mg capsule Take by mouth daily 10/12/19 23 Active baclofen (LIORESAL) 10 mg tablet TAKE 1 TABLET 3 TIMES A DAY BY ORAL ROUTE. Active ferrous sulfate 325 mg (65 mg of elemental iron) tabletIndicati ons:Iron Deficiency Anemia Take 1 tablet (325 mg total) by mouth 2 (two) times a day Active rosuvastatin (CRESTOR) 10 mg tablet Take 1 tablet (10 mg total) by mouth daily 06/22/19 24 Active ascorbic acid (VITAMIN C) 500 mg tablet,chewabl e Take 1 tablet/chew tab (500 mg total) by mouth 2 (two) times a day 60 tablet/chew tab 09/05/19 25 Active cholecalcifero l (Vitamin D3) 2000 unit tablet Take 1 tablet (2,000 Units total) by mouth daily 30 tablet 09/05/19 25 Active aspirin 81 mg chewable tablet Take 1 tablet (81 mg total) by mouth 2 (two) times a day 60 tablet 09/05/[address] (VOLTAREN) 75 mg EC tablet TAKE 1 TABLET BY MOUTH TWICE A DAY 60 tablet 02/14/20 25 Active senna-docusate (Senexon-S) 8.6-50 mg TAKE 1 TABLET 1 TO 2 TIMES DAILY NEEDED FOR CONSTIPATION 60 tablet 1 03/11/20 25 Active senna-docusate (Senexon-S) 8.6-50 mg TAKE 1 TABLET 1 TO 2 TIMES DAILY NEEDED FOR CONSTIPATION 60 tablet 1 12/25/19 25 025 Discontinued Active Problems Problem Noted Date Diagnosed Date Epidermoid cyst of skin 12/20/2024 Insomnia 12/20/2024 Menopausal syndrome 12/20/2024 Lower back injury 12/20/2024 Pilonidal cyst 12/20/2024 Restless legs 12/20/2024 Scapulalgia 12/20/2024 Snoring 12/20/2024 Coronary arteriosclerosis 08/13/2024 Primary osteoarthritis of left knee 08/08/2024 S/P TKR (total knee replacement), right 12/26/19 Primary osteoarthritis of right knee 12/08/2023 Atherosclerosis of coronary artery without angin a pectoris 10/25/2023 Electrocardiogram abnormal 05/30/2023 Muscle pain 05/30/2023 Primary osteoarthritis of right hip 05/22/2023 High serum ferritin 04/09/2023 Bunion 03/20/2023 Adhesive capsulitis of shoulder 01/25/2023 Obstructive sleep apnea syndrome 01/25/2023 Post-acute COVID-19 syndrome 09/07/2022 Numbness and tingling sensation of skin 07/21/19 Pain of both shoulder joints 07/20/2022 Pain of cervical spine 07/20/2022 Fatigue 06/29/2022 Acquired deformity of toe 06/29/2022 Hypercalcemia 05/16/2022 Contact dermatitis 02/03/2022 Hemorrhoids 09/14/2020 Abnormal serum thyroxine (T4) level 03/29/2020 Dysuria 01/31/2020 Adjustment disorder, unspecified 12/26/2019 Anxiety 12/26/2019 Methicillin resistant Staphylococcus aureus infe ction 12/09/2019 Congenital pes planus 07/29/2019 Fibromyalgia 07/29/2019 Foot callus 07/29/2019 Hypercholesterolemia 07/29/2019 Obesity 07/29/2019 Arthritis 07/29/2019 Osteoporosis 07/29/2019 Pain in right foot 07/29/2019 Verruca plantaris 07/29/2019 Rupture of anterior cruciate ligament 06/18/2019 Overview (12/20/2024): left knee; see mri 06/18/2019 of left knee . 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 Gender Identity Not on file Sexual Orientation Not on file Last Filed Vital Signs Vital Sign Reading Time Taken Comments Blood Pressure 135/87 12/20/2024 1:04 PM CDT Pulse 99 12/20/2024 1:04 PM CDT Temperature 36.1 C (97 F) 09/04/2024 11:30 AM CDT Respiratory Rate 18 09/04/2024 11:30 AM CDT Oxygen Saturation 100% 09/04/2024 11:30 AM CDT Inhaled Oxygen Concentration - - Weight 79.8 kg (176 lb) 12/20/2024 1:04 PM CDT Height 149.9 cm (4' 11) 12/20/2024 1:04 PM CDT Body Mass Index 35.55 12/20/2024 1:04 PM CDT Plan of Treatment Health Maintenance Due Date Last Done Comments Colon Cancer Screening-Colonoscopy 1959 Depression Screening 1959 Hepatitis C Screening 1959 Osteoporosis Screening-Bone Density Scan 1959 DTaP/Tdap/Td Vaccine (1 - Tdap) 1970 Hepatitis B Screening 1977 Pneumococcal vaccine 65+ (1 of 1 - PCV) 2009 Zoster Vaccine (1 of 2) 2009 Breast Cancer Screening-Mammogram 01/13/2021 020, 04/23/2017 Well Visit 65+ 02/12/2024 Covid-19 Vaccine (3 - 2024-2 6 season) 2024 09/29/2020, 09/22/2020 Influenza Vaccine (#1) 2024 , 02/07/2023, 03/24/2022, Additional history exists Fall Risk Assessment 09/04/2025 09/04/2024, 08/08/2024, 12/08/2023, Additional history exists Medical Devices Implanted Type Area Clerical Adjudicator Device Identifier Shelf Expiration Date Model / Serial / Lot [employer] Soldier 52mm 36mm Hip Neutral Liner Acetabular Altrx Sterile Latex Free [id number] - [id number] Implanted:Qty: 1 on 09/19/2023 by Reginaldo Daley MD at [facility] Right: Hip [employer] 06/21/2028 [id number] / / [id number] [employer] Soldier 52mm Sector Hip Shell Acetabular Gription Sterile Latex Free [id number] - [id number] Implanted:Qty: 1 on 09/19/2023 by Reginaldo Daley MD at [facility] Right: Hip [employer] 06/21/2033 [id number] / / [id number] [employer] Soldier 6.5mm 25mm Acetabular Cancellous Screw Bone Sterile 1217-25-500 - [id number] Implanted:Qty: 1 on 09/19/2023 by Reginaldo Daley MD at [facility] Right: Hip [employer] 03/23/2033 1217-25-500 / / [id number] [employer] Actis 105mm Collar Hip 5 Standard Offset Stem Femoral 1010--050 - [id number] Implanted:Qty: 1 on 09/19/2023 by Reginaldo Daley MD at [facility] Right: Hip [employer] 07/22/2032 1010-11-050 / / [id number] [employer] Articul/Nathan 36mm Cementless Hip +1.5mm 12/14 Taper Head Femoral Latex Free [id number] - [id number] Implanted:Qty: 1 on 09/19/2023 by Reginaldo Daley MD at [facility] Right: Hip [employer] 07/22/2028 [id number] / / [id number] [employer] Attune Cruciate Retain Cementless Knee Right 5 Component Femoral [id number] - [id number] Implanted:Qty: 1 on 12/26/2023 by Jose Juan Reynolds MD at [facility] Right: Knee [employer] [id number] 10/21/2033 [id number] / / [id number] [employer] Attune Fb Tib Base Sz 3 Por [id number] - [id number] Implanted:Qty: 1 on 12/26/2023 by Jose Juan Reynolds MD at [facility] Right: Knee [employer] [id number] 11/21/2033 [id number] / / [id number] [employer] Insert Tibial Knee Fixed Rm Posterior Stabilized Attune 5mm Size 5 Polyethylene [id number] - [id number] Implanted:Qty: 1 on 12/26/2023 by Jose Juan Reynolds MD at [facility] Right: Knee [employer] [id number] 12/22/2030 [id number] / / [id number] [employer] Attune Fb Tib Base Sz 4 Por [id number] - [id number] Implanted:Qty: 1 on 09/03/2024 by Jose Juan Reynolds MD at [facility] Left: Knee [employer] [id number] 07/22/2032 [id number] / / [id number] [employer] Insert Tibial Knee Fixed Lm Posterior Stabilized Attune 6mm Size 5 Polyethylene [id number] - [id number] Implanted:Qty: 1 on 09/03/2024 by Jose Juan Reynolds MD at [facility] Left: Knee [employer] [id number] 06/21/2032 [id number] / / [id number] [employer] Attune Cruciate Retain Cementless Knee Left 5 Narrow Component [id number] - [id number] Implanted:Qty: 1 on 09/03/2024 by Jose Juan Reynolds MD at [facility] Left: Knee [employer] 06/21/2034 [id number] / / Insurance [facility] Advance Directives For more information, please contact: [phone] * Full Code (Latest Code Status on File) Date Activated Date Inactivated Comments 09/03/2024 3:53 PM 09/04/2024 4:48 PM * Full Code Date Activated Date Inactivated Comments 12/26/2023 3:20 PM 12/27/2023 6:09 PM * Full Code Date Activated Date Inactivated Comments 09/19/2023 12:21 PM 09/19/2023 8:24 PM Care Teams Cut Off Sawyer Log Relationship Specialty [place] [address] [place] [address] PCP - General Emergency Medicine 12/20/24 Reginaldo Daley MD [address] [place] [address] Surgeon Orthopedic Surgery 09/19/23 Delio Freire OT Occupational Therapist Occupational Therapy 08/22/24 Kathleen Olivarez PA [address] [place] [address] Orthopedic Surgery 09/04/24
--- OUTSIDE RECORDS SUMMARY | 2025-04-08 11:36 | XMS_ITS | Clinical Summary ---
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 Not on file Not on file Not [...] 2009 Zoster Vaccines (1 of 2) 2009 Dexa Scan (General) 02/12/2024 COVID-19 Vaccine ( - 2024-2 6 season) 2024 Influenza Adult (#1) 2025 RSV Immunization or 60+ Years (1 - 1-dose 75+ series) 2034 Hepatitis A Vaccines Aged Out No long er eligible based on patient's age to complete this topic Meningococcal B Vaccine Aged Out No l onger eligible based on patient's age to complete this topic Meningococcal Vaccine Aged Out No [place] eligible based on patient's age to complete this topic RSV Immunizations Under 20 Months Aged Out No longer eligible based on patient's age to complete this topic
== END 2025-04-08 10:00 | disposition home or self-care (01) ==
LOC: ANHNEURO 10:03
PROVIDERS: PCP Internal Medicine Gastroenterology; Visit Provider Emergency Medicine
DX: R20.2 Paresthesia of skin (principal)
CPT/HCPCS: 95886; 95909